=== PATIENT | female | born 1975 | race Caucasian/White ===

== ENCOUNTER → 2016-08-01 | Outpatient (CLI) | payer OTHER ==
--- NOTE | 2016-08-01 07:49 | US ---
EXAMINATION TYPE: US abdomen complete DATE OF EXAM: 08/01/2016 7:32 AM COMPARISON: NONE CLINICAL HISTORY: RUQ Pain R10.11. epigastric pain EXAM MEASUREMENTS: Liver Length: 11.1 cm Gallbladder Wall: 0.2 cm CBD: 0.2 cm Spleen: 11.1 cm Right Kidney: 11.3 x 4.6 x 6.9 cm Left Kidney: 10.9 x 4.0 x 4.3 cm TECHNOLOGIST IMPRESSION: very large body habitus , overlying bowel gas, Pancreas: very large body habitus , overlying bowel gas, portions seen wnl Liver: fatty liver, enlarged Gallbladder: wnl Evidence for sonographic Ware's sign: no CBD: wnl Spleen: wnl Right Kidney: No hydronephrosis or masses seen Left Kidney: No hydronephrosis or masses seen Upper IVC: very large body habitus , overlying bowel gas, portions seen wnl Abd Aorta: very large body habitus , overlying bowel gas, portions seen wnl IMPRESSION: 1. Limitation due to patient body habitus. 2. No acute changes evident. 3. Mild fatty infiltration liver
== END | disposition home or self-care (01) ==
LOC: RADUSWWP 07:06
PROVIDERS: ATTEND Internal Medicine
DX: K76.0 Fatty (change of) liver, not elsewhere classified (principal)
CPT/HCPCS: 76700

== ENCOUNTER → 2016-08-02 | Outpatient (CLI) | payer OTHER ==
[2016-08-02 12:52] LABS: Anisocytosis Slight; CHCM 33.3; HCT 39.3 % (34.0-46.0); HGB 12.7 gm/dL (11.4-16.0); Hypochromasia Slight; MCH 27.4 pg (25.0-35.0); MCHC 32.4 g/dL (31.0-37.0); MCV 84.4 fL (80.0-100.0); Mean Platelet Volume 6.1; Poikilocytosis Slight; RBC 4.65 m/uL (3.80-5.40); RDW 16.1 % (11.5-15.5); WBC 6.8 k/uL (3.8-10.6)
[2016-08-02 14:18] LABS: Hemoglobin A1C 5.1 % (4.2-6.1)
[2016-08-02 14:49] LABS: ALT 50 U/L (9-52); AST 28 U/L (14-36); Alkaline Phosphatase 54 U/L (38-126); Anion Gap 9 mmol/L; Blood Urea Nitrogen 11 mg/dL (7-17); C Reactive Protein 20.7 mg/L (<10.0); Calcium 8.8 mg/dL (8.4-10.2); Carbon Dioxide 26 mmol/L (22-30); Chloride 108 mmol/L (98-107); Creatine Kinase 95 U/L (30-135); Glucose 135 mg/dL (74-99); Magnesium 2.1 mg/dL (1.6-2.3); Non-African American GFR(MDRD) >60 (>60 ml/min/1.73 sqM); Potassium 4.2 mmol/L (3.5-5.1); Sodium 143 mmol/L (137-145); Total Bilirubin 0.5 mg/dL (0.2-1.3); Total Protein 6.9 g/dL (6.3-8.2)
[2016-08-02 15:35] LABS: Vitamin B12 628 pg/mL (239-931)
[2016-08-06 05:46] LABS: Vitamin E (Alpha Tocopherol) 1070 ug/dL (500-1800)
[2016-08-09 01:41] LABS: Vitamin K 745 pg/mL (80-1160)
== END | disposition home or self-care (01) ==
LOC: LABWHC1 12:21
PROVIDERS: ATTEND Psychiatry & Neurology Pain Medicine
DX: M79.7 Fibromyalgia (principal); G89.29 Other chronic pain
CPT/HCPCS: 36415; 80053; 82306; 82550; 82607; 83036; 83519; 83735; 84207; 84425; 84446; 84590; 84591; 84597; 85027; 86140

== ENCOUNTER → 2016-12-12 | Outpatient (CLI) | payer OTHER ==
--- NOTE | 2016-12-12 11:29 | MM ---
Reason for exam: clinical finding. Last mammogram was performed 1 year ago. History: Family history of breast cancer in paternal cousin at age 21. Physical Findings: Nurse did not find any significant physical abnormalities on exam.. MG Diagnostic Mammo w CAD HERSON Bilateral CC and MLO view(s) were taken. CV view(s) were taken of the right breast. Prior study comparison: December 05, 2015, bilateral MG diagnostic mammo w CAD HERSON. September 28, 2013, CAD bilateral diagnostic mammogram. The breast tissue is almost entirely fat. There is no discrete abnormality. No abnormal density at right breast. No significant new findings when compared with previous films. These results were verbally communicated with the patient and result sheet given to the patient on 12/12/16. ASSESSMENT: Benign, BI-RAD 2 RECOMMENDATION: Routine screening mammogram of both breasts in 1 year. Manage patient on a clinical basis.
== END | disposition home or self-care (01) ==
LOC: RADMAMWWP 10:21
PROVIDERS: ATTEND Internal Medicine
DX: N60.09 Solitary cyst of unspecified breast (principal)

== ENCOUNTER → 2017-02-22 | Outpatient (CLI) | payer OTHER ==
[2017-02-23 07:50] LABS: Hemoglobin A1C 5.6 % (4.2-6.1)
== END ==
LOC: LABWHC1 10:30
PROVIDERS: ATTEND Psychiatry & Neurology Pain Medicine
DX: M79.7 Fibromyalgia (principal); R20.2 Paresthesia of skin
CPT/HCPCS: 36415; 82306; 83036; 85652; 86038; 86431

== ENCOUNTER → 2017-02-27 | Outpatient (CLI) | payer OTHER ==
--- NOTE | 2017-02-27 22:26 | MR ---
EXAMINATION TYPE: MR lumbar spine wo con DATE OF EXAM: 02/27/2017 COMPARISON: Lumbar spine x-ray June 07, 2016 HISTORY: Prickling in low back and legs per patient for 2 months. Lumbago, neuropathy, lower extremit y paresthesias, and bilateral radiculopathy per order. TECHNIQUE: Multiplanar, multisequence imaging of the lumbar spine is performed without IV contrast. FINDINGS: Sagittal images of the lumbar spine show vertebral body heights and alignment to appear sat isfactory. The intervertebral discs demonstrate normal heights and hydration. No significant posteri or disc herniations are present on sagittal images. The conus medullaris is normal in position and si gnal ending at mid L1 level. The bone marrow signal intensity is within normal limits. No significan t spurring is seen. Axial images show mild facet degenerative changes bilaterally at L4-L5 and L5-S1 levels. Spinal canal is preserved. Bilateral neural foramina are patent. No suspicious retroperitoneal findings are seen. IMPRESSION: Mild facet degenerative changes lower lumbar spine. No significant finding is seen to acc ount for patient's radiculopathy type symptoms.
== END | disposition home or self-care (01) ==
LOC: RADMRIMAIN 21:31
PROVIDERS: ATTEND Psychiatry & Neurology Pain Medicine
DX: M47.816 Spondylosis without myelopathy or radiculopathy, lumbar region (principal)
CPT/HCPCS: 72148

== ENCOUNTER → 2017-09-03 | Outpatient (CLI) | payer OTHER ==
--- NOTE | 2017-09-03 19:17 | MR ---
EXAMINATION TYPE: MR thoracic spine wo con DATE OF EXAM: 09/03/2017 COMPARISON: NONE HISTORY: Mid back pain Standard multiplanar, multisequence MRI departmental protocol Multiplanar, multisequence images of the thoracic spine were acquired. FINDINGS: At T2-T3 there is a central disc bulge. There is no canal stenosis. Neural foramina are patent. At T7-T8 there is minimal left paracentral disc bulging. Simple appearing right renal cyst noted. Remaining levels demonstrate no evidence of disc herniation or canal stenosis. No foraminal encroachm ent. No abnormal signal seen in the visualized spinal cord. Alignment is anatomic. Vertebral body height is maintained. At T10-T11 there is moderate degenerative disc disease. There are no compression deformities. IMPRESSION: Disc bulging at T2-T3 and T7-T8 with no canal stenosis or foraminal encroachment.
== END | disposition home or self-care (01) ==
LOC: RADMRIMAIN 15:44
PROVIDERS: ATTEND Psychiatry & Neurology Neurology
DX: M51.24 Other intervertebral disc displacement, thoracic region (principal)
CPT/HCPCS: 72146

== ENCOUNTER 2017-11-30 12:02 | Emergency (ER) | payer OTHER ==
[2017-11-30 12:14] VITALS: BP 130/83; PULSE 75; RESP 20; TEMP 98.2
--- NOTE | 2017-11-30 12:52 | ED ---
General Adult HPI - General Chief complaint: Abdominal Pain Stated complaint: BACK PAIN X 4 DAYS Time Seen by Provider: 11/30/17 12:29 Source: patient, RN notes reviewed Mode of arrival: ambulatory Limitations: no limitations - History of Present Illness Initial comments: Patient's a 42-year-old female presented to the emergency room today with a chief complaint of right shoulder pain. Patient denies any specific injury or trauma. She doesn't that the pain is somewhat constant she can feeling behind the shoulder blade. She states with movement she feels that it radiates into the spine sheet down. Patient admits that pain is worse with movement. Patient states unsure if she slept wrong or how she injured it. Patient denies any recent fever, chills, shortness of breath, chest pain, abdominal pain, nausea or vomiting, dysuria or hematuria, constipation or diarrhea, headaches or visual changes, or any other complaints. - Related Data Home Medications Medication Instructions Recorded Confirmed Hydrocodone/Acetaminophen 1 tab PO DIRECTED 08/31/14 11/30/17 [Hydrocodon-Acetaminoph 7.5-325] Previous Rx's Medication Instructions Recorded Cyclobenzaprine [Flexeril] 10 mg PO TID #20 tab 11/30/17 Allergies Allergy/AdvReac Type Severity Reaction Status Date / Time NSAIDS (Non-Steroidal AdvReac Rash/Hives Verified 11/30/17 12:14 Anti-Inflamma Review of Systems ROS Statement: Those systems with pertinent positive or pertinent negative responses have been documented in the HPI. ROS Other: All systems not noted in ROS Statement are negative. Past Medical History Past Medical History: Fibromyalgia, Osteoarthritis (OA), Pulmonary Embolus (PE) Additional Past Medical History / Comment(s): lower back pain, migraines History of Any Multi-Drug Resistant Organisms: None Reported Past Surgical History: Section, Orthopedic Surgery Additional Past Surgical History / Comment(s): knee scope Past Psychological History: No Psychological Hx Reported Smoking Status: Never smoker Past Alcohol Use History: None Reported Past Drug Use History: None Reported General Exam - General Exam Comments Initial Comments: General: The patient is awake and alert, in no distress, and does not appear acutely ill. Neck: The neck is supple, there is no tenderness or JVD. Cardiovascular: There is a regular rate and rhythm. No murmur, rub or gallop is appreciated. Respiratory: Lungs are clear to auscultation, respirations are non-labored, breath sounds are equal. No wheezes, stridor, rales, or rhonchi. Musculoskeletal: Normal appearance of the right shoulder. Does have tenderness over the anterior and posterior aspects no muscular areas of the right shoulder. Patient's pain reproduced with movements and on palpation. Sensations intact pulses 2+. Neurological: A&O x 3. CN II-XII intact, There are no obvious motor or sensory deficits. Coordination appears grossly intact. Speech is normal. Abdominal: Abdomen soft nontender. No rebound tenderness. No guarding, no CVA tenderness. Skin: Skin is warm and dry and no rashes or lesions are noted. Psychiatric: Normal mood and affect. Limitations: no limitations Course Vital Signs 11/30/17 12:12 Temperature 98.2 F Pulse Rate 75 Respiratory 20 Rate Blood Pressure 130/83 O2 Sat by Pulse 96 Oximetry Medical Decision Making - Medical Decision Making Patient's initial triage note discusses abdominal pain. Did ask specifically patient denies any abdominal pain. She states that she's shoulder pain that is worse with movement. Patient's pain reproducible on palpation and with movements of extension in both internal rotation. Patient will be given muscle relaxer patient describes spasm-like pain. Also advised continued anti- inflammatories which she states she's been using ibuprofen at home. Disposition Clinical Impression: Right shoulder strain Disposition: HOME SELF-CARE Condition: Good Instructions: Shoulder Sprain (ED) Additional Instructions: Please use medication as discussed. Please follow-up with family doctor in the next 2 days of symptoms have not improved. Please return to emergency room if the symptoms increase or worsen or for any other concerns. Prescriptions: Cyclobenzaprine [Flexeril] 10 mg PO TID #20 tab Is patient prescribed a controlled substance at d/c from ED?: No Referrals: Lillian Vazquez MD [REFERRING] - 1-2 days Time of Disposition: 12:42
== END 2017-11-30 13:00 | disposition home or self-care (01) ==
LOC: EC 12:02
DX: S46.911A Strain of unspecified muscle, fascia and tendon at shoulder and upper arm level, right arm, initial encounter (principal); M79.7 Fibromyalgia; M19.90 Unspecified osteoarthritis, unspecified site; Z86.711 Personal history of pulmonary embolism; Z98.890 Other specified postprocedural states; Z79.891 Long term (current) use of opiate analgesic; Z79.899 Other long term (current) drug therapy; Z88.6 Allergy status to analgesic agent; X58.XXXA Exposure to other specified factors, initial encounter
CPT/HCPCS: 99283

== ENCOUNTER → 2018-07-29 | Outpatient (CLI) | payer OTHER ==
[2018-07-29 15:04] VITALS: BP 130/78; PULSE 77; TEMP 98.9; BMI 47.4
--- NOTE | 2018-07-29 16:42 | P.HPBAR ---
Bariatric H&P - History & Physicial H&P Date: 07/29/18 History & Physicial: Visit/CC: bariatric sx consult Patient initial contact: Initial weight: 121.381 kg Initial weight in pounds: 267.60 Height: 5 ft 3 in Initial BMI: 47.4 Last weight: Current weight: 121.381 kg Current weight in pounds: 267.60 Current BMI: 47.4 [place] body weight (based on NIH guidelines): 52.163 kg Excess body weight loss: 0.0% The patient is a 43 year-old F who presents for Bariatric Assessment. Medications and Allergies Home Medications Medication Instructions Recorded Confirmed Type Hydrocodone/Acetaminophen 1 tab PO DIRECTED 08/31/14 07/29/18 History [Hydrocodon-Acetaminoph 7.5-325] Phentermine HCl [Adipex-P] 37.5 mg PO DAILY 07/29/18 07/29/18 History Topiramate [Topamax] 25 mg PO DAILY 07/29/18 07/29/18 History Allergies Allergy/AdvReac Type Severity Reaction Status Date / Time NSAIDS (Non-Steroidal AdvReac Rash/Hives Verified 07/29/18 15:05 Anti-Inflamma HPI: Looking into the sleeve gastrectomy. She has family and friends who had the sleeve. She denies any GERD. No family history of esophageal or stomach cancer. No blood clots in the family. Highest weight of 293 pounds. Tried weight watchers, amilcar tena, topamax and adipex for weight loss. Her most weight loss is 18 pounds. She reports no family history of obesity. She has her gallbladder and without problems. No family history of gallbladder problems. Osteoarthritis of back, knees, and plantar fasciitis. She had an appendectomy. She had a sleep study. She is not on any medications for her blood pressure. She has history of DVTs during . She has panniculitis. ABDOMEN: She has severe panniculitis. PLAN: 1. Nystatin powder for panniculitis. 2. Labs today 3. Get your sleeve done 4. Guidelines per [place] Past Medical History Past Medical History: Fibromyalgia, Osteoarthritis (OA), Pulmonary Embolus (PE) Additional Past Medical History / Comment(s): lower back pain, migraines, Right lung PE (following and delivery), OA in bilateral hips and knees) History of Any Multi-Drug Resistant Organisms: None Reported Past Surgical History: Section, Orthopedic Surgery Additional Past Surgical History / Comment(s): x1, arthroscopic knee sx (3x to RIGHT knee, 2x to LEFT) Past Anesthesia/Blood Transfusion Reactions: No Reported Reaction Additional Past Anesthesia/Blood Transfusion Reaction / Comm: No blood transfusion to date Past Psychological History: No Psychological Hx Reported Smoking Status: Never smoker Past Alcohol Use History: None Reported Past Drug Use History: None Reported Surgical - Exam Vital Signs Temp Pulse BP 98.9 F 77 130/78 07/29/18 14:36 07/29/18 14:36 07/29/18 14:36 Bariatric Checklist Checklist: Plan: Checklist: EGD: 1. Hiatal hernia: 2. H. Pylori: HgbA1c: Vitamin D: Smoking: Never smoker Primary care physician referral: minnie Psychiatry clearance: Cardiology clearance: Sleep study: Diet journal: VTE risk score: VTE risk level: Rehab needs at discharge:
== END | disposition home or self-care (01) ==
LOC: BARWHC3 13:43
PROVIDERS: ATTEND Surgery Plastic and Reconstructive Surgery
DX: E66.01 Morbid (severe) obesity due to excess calories (principal); M79.3 Panniculitis, unspecified; Z68.42 Body mass index [BMI] 45.0-49.9, adult; Z90.49 Acquired absence of other specified parts of digestive tract; Z79.899 Other long term (current) drug therapy; Z88.6 Allergy status to analgesic agent
CPT/HCPCS: 99211

== ENCOUNTER → 2018-07-30 | Outpatient (CLI) | payer OTHER ==
[2018-07-30 10:45] LABS: Anisocytosis Slight; HCT 44.7 % (34.0-46.0); HGB 14.1 gm/dL (11.4-16.0); Hypochromasia Slight; MCH 26.1 pg (25.0-35.0); MCHC 31.6 g/dL (31.0-37.0); MCV 82.4 fL (80.0-100.0); Mean Platelet Volume 6.2; Platelet Count 386 k/uL (150-450); RBC 5.43 m/uL (3.80-5.40); RDW 17.3 % (11.5-15.5); WBC 8.2 k/uL (3.8-10.6)
[2018-07-30 16:21] LABS: Albumin 4.7 g/dL (3.80-4.90); Albumin/Globulin Ratio 1.81 (1.60-3.17); Anion Gap 9.1 mmol/L (4.00-12.00); Calcium 9.8 mg/dL (8.7-10.3); Carbon Dioxide 26.9 mmol/L (21.6-31.8); Globulin 2.6 g/dL (1.6-3.3); LDL Cholesterol,Calculated 90.2 mg/dL (0.0-131.0); Potassium 4.6 mmol/L (3.5-5.5); Total Bilirubin 0.4 mg/dL (0.3-1.2); Total Protein 7.3 g/dL (6.2-8.2); VLDL Calculation 40.8 mg/dL (5.00-40.00)
[2018-07-30 16:22] LABS: Iron Saturation 16.9 (12.00-45.00)
[2018-07-30 17:11] LABS: Folate, Serum 9.9 ng/mL; Vitamin D 25 Hydroxy 14.3 ng/mL (30.0-100.0)
== END | disposition home or self-care (01) ==
LOC: LABWHC1 09:47
PROVIDERS: ATTEND Surgery Plastic and Reconstructive Surgery
DX: E66.01 Morbid (severe) obesity due to excess calories (principal); E88.81 Metabolic syndrome and other insulin resistance; E44.0 Moderate protein-calorie malnutrition; E55.9 Vitamin D deficiency, unspecified; I11.9 Hypertensive heart disease without heart failure; G47.30 Sleep apnea, unspecified; Z68.43 Body mass index [BMI] 50.0-59.9, adult
CPT/HCPCS: 36415; 80053; 80061; 82306; 82607; 82728; 82746; 83540; 83550; 84425; 84443; 85027; 93005

== ENCOUNTER → 2018-09-08 | Outpatient (CLI) | payer OTHER ==
[2018-09-08 16:05] VITALS: BP 129/79; PULSE 92; RESP 16; TEMP 97.4; BMI 48.2
--- NOTE | 2018-09-08 17:08 | P.HPOB ---
History of Present Illness H&P Date: 09/08/18 Chief Complaint: The patient is here for her routine gynecologic exam. This is a 43 year old with an LMP of April 2018. The patient states her menses were regular every month until 5 months ago when they suddenly stopped. She has been experiencing hot flashes since about that time. She is status post tubal ligation. She also has been experiencing problems with hemorrhoids for the past 3 months. She has known about a hemorrhoid for a long time, but it started feeling inflamed and seems to always be in the way with her bowel movements. She has tried preparation H, tucks wipes and some types of suppositories. These have not helped very much. She states that it hurts to wipe, stand, sit and to have bowel movements. She has felt a tearing type sensation with some bowel movements and this can lead to blood when she wipes. She states she moves her bowels fairly regularly at least once a day and they tend to be on the softer side. She tried suppositories about one month ago. Review of Systems Her weight is about the same as it was 2 1/2 years ago. She denies respiratory cardiac problems. G.I.: symptomatic hemorrhoids as in the HPI. She otherwise denies any G.I. problems. Past Medical History Past Medical History: Deep Vein Thrombosis (DVT), Fibromyalgia, Hypertension, Osteoarthritis (OA), Pulmonary Embolus (PE) Additional Past Medical History / Comment(s): Chronic back problems with herniated disc, migraines, DVT and Right lung PE (following and c- section delivery), OA in bilateral hips and knees. 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 History of Any Multi-Drug Resistant Organisms: None Reported Past Surgical History: Appendectomy, Section, Orthopedic Surgery, Tubal Ligation Additional Past Surgical History / Comment(s): x1, arthroscopic knee sx (3x to RIGHT knee, 2x to LEFT) Past Anesthesia/Blood Transfusion Reactions: No Reported Reaction Additional Past Anesthesia/Blood Transfusion Reaction / Comment(s): No blood transfusion to date Past Psychological History: No Psychological Hx Reported Smoking Status: Former smoker Past Alcohol Use History: None Reported Past Drug Use History: Marijuana (Medical marijuana) Additional History: Quit smoking 2000. She has been since 2016 and has been with him since 2004. She is disabled. - Past Family History Father Family Medical History: Diabetes Mellitus, Myocardial Infarction (HI) Additional Family Medical History / Comment(s): Grandmother and grandfather had diabetes. Grandfather had prostate cancer. Medications and Allergies Home Medications Medication Instructions Recorded Confirmed Type Hydrocodone/Acetaminophen 1 tab PO DIRECTED 08/31/14 09/08/18 History [Hydrocodon-Acetaminoph 7.5-325] Phentermine HCl [Adipex-P] 37.5 mg PO DAILY 07/29/18 09/08/18 History Topiramate [Topamax] 25 mg PO DAILY 07/29/18 09/08/18 History Ergocalciferol (Vitamin D2) 50,000 unit PO WEEKLY 08/06/18 09/08/18 History [Vitamin D2] Allergies Allergy/AdvReac Type Severity Reaction Status Date / Time NSAIDS (Non-Steroidal AdvReac Rash/Hives Verified 09/08/18 16:01 Anti-Inflamma Exam Vital Signs Temp Pulse Resp BP Pulse Ox 09/08/18 16:02 97.4 F L 92 16 129/79 98 Intake and Output 09/08/18 09/08/18 09/08/18 06:59 14:59 22:59 Other: Weight 119.748 kg Height 5'2", weight 264 pounds, BMI 48.3. This is a well-developed well-nourished obese white female who is alert and oriented times 3 in no acute distress. HEENT: Within normal limits. NECK: Supple without mass or thyromegaly. CHEST AND LUNGS: Clear to auscultation. HEART: Regular rate and rhythm. BREASTS: Are without mass or discharge. AXILLARY EXAM: Negative for adenopathy. BACK: Negative for CVA tenderness. ABDOMEN: Soft, obese, nontender, without palpable masses. PELVIC EXAM: Normal external genitalia. Cervix and vagina appear normal. There is no unusual discharge. There is no evidence of prolapse. The uterus is midposition, nongravid size and nontender. There are no palpable adnexal masses or tenderness. Bimanual examination is somewhat limited secondary to her size. RECTAL EXAM: there is a 1 cm external hemorrhoid had approximately the 8 o'clock position. This is soft and minimally tender. This external hemorrhoid seems to extend into an internal hemorrhoid which is soft and mildly tender the internal hemorrhoid does not seem to be actively bleeding. There are no other palpable masses. Stool is negative for occult blood. EXTREMITIES: Nontender. IMPRESSION: 1. 43 year old obese female with five-month history of secondary amenorrhea with vasomotor symptoms, probable perimenopause. 2. Symptomatic internal and external hemorrhoid. PLAN: 1. Pap smear was performed. 2. Self breast awareness was discussed with the patient. 3. Screening mammogram was recommended and an order slip was given to the patient for this. 4. Blood tests will be done today and this will include: FSH, estradiol, and hCG. The patient had a normal TSH approximately one month ago. 5. The patient will keep the menstrual calendar and call it having menstrual problems. 6. Anusol HC suppositories and cream can each be used BID PRN. The electronic prescription will be sent to [facility] pharmacy on . I have also stressed the importance of keeping stools soft and regular. If she continues to have problems with her hemorrhoids, I recommended that she speak with her surgeon, Dr. Celis. 7.Osteoporosis prevention was discussed. I have stressed the importance of adequate calcium, vitamin D and regular exercise. Recommended amounts of calcium and vitamin D were also discussed. 8. She will return in one year and PRN.
== END ==
LOC: WWCWWP 15:50
PROVIDERS: ATTEND Obstetrics & Gynecology
DX: N91.1 Secondary amenorrhea (principal)
CPT/HCPCS: 36415; 82670; 83001; 84702

== ENCOUNTER → 2018-09-14 | Day surgery (SDC) | payer OTHER ==
[2018-09-10 10:32] VITALS: BMI 47.5
[~2018-09-14] MED LIST: LACTATED RINGERS 1,000 ML IV SCH; LIDOCAINE 1% INJ 10MG/ML (20 ML MDV) ONE; PROPOFOL 10 MG/ML 20 ML VIAL IV ONE
--- NOTE | 2018-09-14 06:27 | P.GSHP ---
History of Present Illness H&P Date: 09/14/18 CHIEF COMPLAINT: GERD HISTORY OF PRESENT ILLNESS: The patient is a 43-year-old female who presents reports gastroesophageal reflux disease. Upper endoscopy was offered for further evaluation and management. PAST MEDICAL HISTORY: Please see list. PAST SURGICAL HISTORY: Please see list. MEDICATIONS: Please see list. ALLERGIES: Please see list. SOCIAL HISTORY: No illicit drug use FAMILY HISTORY: No reports of Crohn disease or ulcerative colitis. REVIEW OF ORGAN SYSTEMS: CONSTITUTIONAL: No reports of fevers or chills. GI: Denies any blood in stools or constipation. PHYSICAL EXAM: VITAL SIGNS: Stable GENERAL: Well-developed and pleasant in no acute distress. HEENT: No scleral icterus. Extraocular movements grossly intact. Moist buccal mucosa. NECK: Supple without lymphadenopathy. CHEST: Unlabored respirations. Equal bilateral excursions. CARDIOVASCULAR: Regular rate and rhythm. Distal 2+ pulses. ABDOMEN: Soft, nondistended. MUSCULOSKELETAL: No clubbing, cyanosis, or edema. ASSESSMENT: 1. Gastroesophageal reflux disease PLAN: 1. Recommend proceeding with an upper endoscopy Past Medical History Past Medical History: Fibromyalgia, Osteoarthritis (OA), Pulmonary Embolus (PE) Additional Past Medical History / Comment(s): lower back pain, migraines, Right lung PE (while ), OA in bilateral hips and knees History of Any Multi-Drug Resistant Organisms: None Reported Past Surgical History: Appendectomy, Section, Orthopedic Surgery Additional Past Surgical History / Comment(s): x1, arthroscopic knee sx (3x to RIGHT knee, 2x to LEFT) Past Anesthesia/Blood Transfusion Reactions: No Reported Reaction Additional Past Anesthesia/Blood Transfusion Reaction / Comment(s): No blood transfusion to date Past Psychological History: No Psychological Hx Reported Smoking Status: Never smoker Past Alcohol Use History: None Reported Past Drug Use History: None Reported - Past Family History Mother Family Medical History: No Reported History Medications and Allergies Home Medications Medication Instructions Recorded Confirmed Type Hydrocodone/Acetaminophen 1 tab PO BID PRN 08/31/14 09/10/18 History [Hydrocodon-Acetaminoph 7.5-325] Phentermine HCl [Adipex-P] 37.5 mg PO DAILY 07/29/18 09/10/18 History Topiramate [Topamax] 25 mg PO DAILY 07/29/18 09/10/18 History Ergocalciferol (Vitamin D2) 50,000 unit PO WEEKLY 08/06/18 09/10/18 History [Vitamin D2] Allergies Allergy/AdvReac Type Severity Reaction Status Date / Time NSAIDS (Non-Steroidal AdvReac Rash/Hives Verified 09/10/18 10:18 Anti-Inflamma
[2018-09-14 07:22] VITALS: TEMP 96.8
--- NOTE | 2018-09-14 07:46 | P.PCN ---
Date of Procedure: 09/14/18 Description of Procedure: PREOPERATIVE DIAGNOSIS: Gastroesophageal reflux disease. Morbid obesity. POSTOPERATIVE DIAGNOSIS: Gastroesophageal reflux disease. Morbid obesity. Gastritis. Retained food OPERATION: Esophagogastroduodenoscopy with biopsies along antrum. SURGEON: Kareen Delacruz MD ANESTHESIA: MAC. INDICATIONS: The patient is a 43-year-old female who presents with a history of reflux disease. Benefits and risks of the procedure were described. Informed consent was obtained. DESCRIPTION: The patient was brought into the endoscopy suite and laid in the left lateral decubitus position. An Olympus gastroscope was passed along the posterior oropharynx down to the distal esophagus where the squamocolumnar junction was encountered at 36 cm from the incisors. The stomach was entered and no bile reflux was found. Additional findings are listed below. Biopsies with cold forceps were obtained of the antrum. The first through third portion of the duodenum was examined and unremarkable. Retroflexion of the scope confirmed Hill grade 2 lower esophageal valve. The squamocolumnar junction demonstrated LA grade A erosive esophagitis. The stomach was desufflated. The patient tolerated the procedure well. FINDINGS: Squamocolumnar junction 36 cm from the incisors. Diaphragmatic hiatus at 36 cm. Hill grade 2 lower esophageal valve. LA grade A erosive esophagitis. No active duodenitis. Moderate retained food within fundus suspicious of acute or delayed gastric emptying Hypertensive pylorus requiring us persistent pressure to advance scope into the duodenum Chronic gastritis RECOMMENDATIONS: Upper endoscopy as needed. Plan - Discharge Summary New Discharge Prescriptions: No Action Hydrocodone/Acetaminophen [Hydrocodon-Acetaminoph 7.5-325] 1 tab PO BID PRN PRN Reason: Pain Topiramate [Topamax] 25 mg PO DAILY Phentermine HCl [Adipex-P] 37.5 mg PO DAILY Ergocalciferol (Vitamin D2) [Vitamin D2] 50,000 unit PO WEEKLY Discharge Medication List Hydrocodone/Acetaminophen [Hydrocodon-Acetaminoph 7.5-325] 1 tab PO BID PRN 08/31/14 [History] Phentermine HCl [Adipex-P] 37.5 mg PO DAILY 07/29/18 [History] Topiramate [Topamax] 25 mg PO DAILY 07/29/18 [History] Ergocalciferol (Vitamin D2) [Vitamin D2] 50,000 unit PO WEEKLY 08/06/18 [History] Follow up Appointment(s)/Referral(s): [facility] [NON-STAFF] - 10/14/18 Patient Instructions/Handouts: Gastroparesis (DC), Gastroesophageal Reflux Disease (DC) Discharge Disposition: HOME SELF-CARE
[2018-09-14 09:45] VITALS: BP 122/76; PULSE 66; RESP 18
== END | disposition home or self-care (01) ==
LOC: ORWHC2ENDO 06:57
PROVIDERS: ATTEND Surgery Plastic and Reconstructive Surgery
DX: K21.0 Gastro-esophageal reflux disease with esophagitis (principal); K29.50 Unspecified chronic gastritis without bleeding; K31.89 Other diseases of stomach and duodenum; T18.2XXA Foreign body in stomach, initial encounter; E66.01 Morbid (severe) obesity due to excess calories; Z68.42 Body mass index [BMI] 45.0-49.9, adult; M79.7 Fibromyalgia; M15.9 Polyosteoarthritis, unspecified; G43.909 Migraine, unspecified, not intractable, without status migrainosus; Z86.711 Personal history of pulmonary embolism; Z90.49 Acquired absence of other specified parts of digestive tract; Z79.899 Other long term (current) drug therapy; Z88.8 Allergy status to other drugs, medicaments and biological substances
CPT/HCPCS: 88305; 43239; J2001; J2704

== ENCOUNTER → 2018-09-21 | Outpatient (CLI) | payer OTHER ==
[2018-09-21 12:01] VITALS: BMI 47.1
== END ==
LOC: BARWHC3 08:36
PROVIDERS: ATTEND Surgery Plastic and Reconstructive Surgery
DX: E66.01 Morbid (severe) obesity due to excess calories (principal); Z68.42 Body mass index [BMI] 45.0-49.9, adult
CPT/HCPCS: 97804

== ENCOUNTER 2018-09-22 18:27 | Emergency (ER) | payer OTHER ==
[2018-09-22 18:33] VITALS: RESP 18
[2018-09-22] MEDS ORDERED: ONDANSETRON 4 MG/2 ML VIAL IVP STA (19:13)
[2018-09-22] MEDS ORDERED: SODIUM CHLORIDE 0.9% 1,000 ML IV STA (19:13)
[2018-09-22] MEDS ORDERED: MORPHINE SULFATE 4 MG/ML SYRINGE IVP STA (19:13)
[2018-09-22 19:50] LABS: Anisocytosis Slight; Basophils % (A) 0 %; Eosinophils # (A) 0.1 k/uL (0-0.7); Eosinophils % (A) 1 %; HCT 38.4 % (34.0-46.0); HGB 12.9 gm/dL (11.4-16.0); Lymphocytes % (A) 32 %; MCH 26.4 pg (25.0-35.0); MCHC 33.5 g/dL (31.0-37.0); MCV 78.9 fL (80.0-100.0); Microcytosis Slight; Monocytes # (A) 0.4 k/uL (0-1.0); Monocytes % (A) 4 %; Neutrophils # (A) 5.8 k/uL (1.3-7.7); Neutrophils % (A) 62 %; Platelet Count 329 k/uL (150-450); RBC 4.87 m/uL (3.80-5.40); RDW 16.8 % (11.5-15.5); WBC 9.5 k/uL (3.8-10.6)
[2018-09-22 19:54] LABS: Amorphous Sediment,Urine Occasional /hpf; Appearance,Urine Cloudy (Clear); Bacteria,Urine Occasional /hpf; Bilirubin,Urine Negative (Negative); Blood,Urine Trace (Negative); Color,Urine Yellow; Glucose,Urine (UA) Negative (Negative); Hyaline Casts,Urine 7 /lpf (0-2); Ketones,Urine Negative (Negative); Leukocyte Esterase,Urine Negative (Negative); Mucus,Urine Many /hpf; Nitrite,Urine Negative (Negative); PH, Urine 5.5 (5.0-8.0); Protein,Urine 1+ (Negative); RBC,Urine 2 /hpf (0-5); Specific Gravity,Urine 1.031 (1.001-1.035); Squamous Epithelial Cell,Urine 11 /hpf (0-4); Urobilinogen,Urine <2.0 mg/dL (<2.0); WBC,Urine 13 /hpf (0-5)
[2018-09-22 20:02] LABS: ALT 22 U/L (9-52); AST 19 U/L (14-36); Alkaline Phosphatase 66 U/L (38-126); Amylase <30 U/L (30-110); Anion Gap 8 mmol/L; Blood Urea Nitrogen 14 mg/dL (7-17); Calcium 9.4 mg/dL (8.4-10.2); Carbon Dioxide 27 mmol/L (22-30); Chloride 106 mmol/L (98-107); Glucose 118 mg/dL (74-99); Lipase 90 U/L (23-300); Potassium 4.1 mmol/L (3.5-5.1); Sodium 141 mmol/L (137-145); Total Bilirubin 0.5 mg/dL (0.2-1.3); Total Protein 7.1 g/dL (6.3-8.2)
--- NOTE | 2018-09-22 21:04 | CT ---
EXAMINATION TYPE: CT abdomen pelvis wo con DATE OF EXAM: 09/22/2018 COMPARISON: None HISTORY: left flank pain CT DLP: 1250 mGycm Automated exposure control for dose reduction was used. TECHNIQUE: Helical acquisition of images was performed from the lung bases through the pelvis. FINDINGS: Within the limitations of noncontrast CT the following observations are made: LUNG BASES: No significant abnormality is appreciated. LIVER/GB: No significant abnormality is appreciated. PANCREAS: No significant abnormality is seen. SPLEEN: No significant abnormality is seen. ADRENALS: No significant abnormality is seen. KIDNEYS: No hydronephrosis or hydroureter. No acute renal process. However, congenital variant left r enal anatomy is noted, with upper and lower left renal moieties. FREE AIR: No free air is visualized RETROPERITONEAL ADENOPATHY: None visualized REPRODUCTIVE ORGANS: No significant abnormality is seen URINARY BLADDER: No significant abnormality is seen. PELVIC ADENOPATHY: None visualized. OSSEOUS STRUCTURES: No significant abnormality is seen. BOWEL: No significant abnormality is seen. No diverticulitis. IMPRESSION: NO ACUTE PROCESS.
--- NOTE | 2018-09-22 21:47 | ED ---
General Adult HPI - General Chief complaint: Back Pain/Injury Stated complaint: flank pain Time Seen by Provider: 09/22/18 18:48 Source: patient, RN notes reviewed Mode of arrival: ambulatory Limitations: no limitations - History of Present Illness Initial comments: 43-year-old female with a past medical history of fibromyalgia, hypertension, osteoarthritis, chronic back pain, herniated disks presents to the emergency department for a chief complaint of left-sided flank pain rating around to the left upper abdomen. States this has been ongoing for 4 days. Denies any dysuria or urinary frequency or or urgency. Patient also states that today she started to have some right-sided flank pain. Patient states that when the pain is severe and sometimes takes her breath away. She denies any other shortness of breath or chest pain.Patient has no other complaints at this time including shortness of breath, chest pain, abdominal pain, nausea or vomiting, headache, or visual changes. - Related Data Home Medications Medication Instructions Recorded Confirmed Hydrocodone/Acetaminophen 1 tab PO BID PRN 08/31/14 09/22/18 [Hydrocodon-Acetaminoph 7.5-325] Phentermine HCl [Adipex-P] 37.5 mg PO DAILY 07/29/18 09/22/18 Topiramate [Topamax] 25 mg PO DAILY 07/29/18 09/22/18 Ergocalciferol (Vitamin D2) 50,000 unit PO FR 08/06/18 09/22/18 [Vitamin D2] Allergies Allergy/AdvReac Type Severity Reaction Status Date / Time NSAIDS (Non-Steroidal AdvReac Rash/Hives Verified 09/22/18 19:04 Anti-Inflamma Review of Systems ROS Statement: Those systems with pertinent positive or pertinent negative responses have been documented in the HPI. ROS Other: All systems not noted in ROS Statement are negative. Past Medical History Past Medical History: Deep Vein Thrombosis (DVT), Fibromyalgia, Hypertension, Osteoarthritis (OA), Pulmonary Embolus (PE) Additional Past Medical History / Comment(s): Chronic back problems with herniated disc, migraines History of Any Multi-Drug Resistant Organisms: None Reported Past Surgical History: Appendectomy, Section, Orthopedic Surgery, Tubal Ligation Additional Past Surgical History / Comment(s): x1, arthroscopic knee sx (3x to RIGHT knee, 2x to LEFT) Past Anesthesia/Blood Transfusion Reactions: No Reported Reaction Additional Past Anesthesia/Blood Transfusion Reaction / Comment(s): No blood transfusion to date Past Psychological History: No Psychological Hx Reported Smoking Status: Former smoker Past Alcohol Use History: None Reported Past Drug Use History: None Reported - Past Family History Father Family Medical History: Diabetes Mellitus, Myocardial Infarction ([place]) Additional Family Medical History / Comment(s): Grandmother and grandfather had diabetes. Grandfather had prostate cancer. Mother Family Medical History: No Reported History General Exam Limitations: no limitations General appearance: alert, in no apparent distress Head exam: Present: atraumatic, normocephalic, normal inspection Eye exam: Present: normal appearance, PERRL, EOMI. Absent: scleral icterus, conjunctival injection, periorbital swelling ENT exam: Present: normal exam, mucous membranes moist Neck exam: Present: normal inspection, full ROM. Absent: tenderness, meningismus, lymphadenopathy Respiratory exam: Present: normal lung sounds bilaterally. Absent: respiratory distress, wheezes, rales, rhonchi, stridor Cardiovascular Exam: Present: regular rate, normal rhythm, normal heart sounds. Absent: systolic murmur, diastolic murmur, rubs, gallop, clicks GI/Abdominal exam: Present: soft, normal bowel sounds. Absent: distended, tenderness, guarding, rebound, rigid Back exam: Present: CVA tenderness (L). Absent: CVA tenderness (R), vertebral tenderness Neurological exam: Present: alert, oriented X3, CN II-XII intact Psychiatric exam: Present: normal affect, normal mood Course Vital Signs 09/22/18 18:30 Temperature 98.0 F Pulse Rate 75 Respiratory 18 Rate Blood Pressure 125/86 O2 Sat by Pulse 97 Oximetry Medical Decision Making - Medical Decision Making 43-year-old female presents to the emergency department for left flank pain 4 days. Patient does have left CVA tenderness. Otherwise exam is unremarkable. Patient is well-appearing, does not appear in distress. Vitals are stable. Tooth CBC and CMP are unremarkable. Urine has 11 squamous cells With 13 white blood cells so will be cultured. However low likelihood of urinary tract infection. CT shows no acute process. At this time it is likely the patient may have passed a stone. It is also likely that patient has a musculoskeletal etiology she does have tenderness noted to the left paraspinal muscles. Patient will follow up with primary care. She'll return here if she has any worsening symptoms. - Lab Data Result diagrams: 09/22/18 19:37 09/22/18 19:37 Lab Results 09/22/18 09/22/18 09/22/18 Range/Units 19:37 19:37 19:37 WBC 9.5 (3.8-10.6) k/uL RBC 4.87 (3.80-5.40) m/uL Hgb 12.9 (11.4-16.0) gm/dL Hct 38.4 (34.0-46.0) % MCV 78.9 L (80.0-100.0) fL MCH 26.4 (25.0-35.0) pg MCHC 33.5 (31.0-37.0) g/dL RDW 16.8 H (11.5-15.5) % Plt Count 329 (150-450) k/uL Neutrophils % 62 % Lymphocytes % 32 % Monocytes % 4 % Eosinophils % 1 % Basophils % 0 % Neutrophils # 5.8 (1.3-7.7) k/uL Lymphocytes # 3.0 (1.0-4.8) k/uL Monocytes # 0.4 (0-1.0) k/uL Eosinophils # 0.1 (0-0.7) k/uL Basophils # 0.0 (0-0.2) k/uL Anisocytosis Slight Microcytosis Slight Sodium 141 (137-145) mmol/L Potassium 4.1 (3.5-5.1) mmol/L Chloride 106 (98-107) mmol/L Carbon Dioxide 27 (22-30) mmol/L Anion Gap 8 mmol/L BUN 14 (7-17) mg/dL Creatinine 0.70 (0.52-1.04) mg/dL Est GFR (CKD-EPI)AfAm >90 (>60 ml/min/1.73 sqM) Est GFR (CKD-EPI)NonAf >90 (>60 ml/min/1.73 sqM) Glucose 118 H (74-99) mg/dL Plasma Lactic Acid Solomon 1.6 (0.7-2.0) mmol/L Calcium 9.4 (8.4-10.2) mg/dL Total Bilirubin 0.5 (0.2-1.3) mg/dL AST 19 (14-36) U/L ALT 22 (9-52) U/L Alkaline Phosphatase 66 (38-126) U/L Total Protein 7.1 (6.3-8.2) g/dL Albumin 4.0 (3.5-5.0) g/dL Amylase <30 L (30-110) U/L Lipase 90 (23-300) U/L Urine Color Urine Appearance (Clear) Urine pH (5.0-8.0) Ur Specific [place] (1.001-1.035) Urine Protein (Negative) Urine Glucose (UA) (Negative) Urine Ketones (Negative) Urine Blood (Negative) Urine Nitrite (Negative) Urine Bilirubin (Negative) Urine Urobilinogen (<2.0) mg/dL Ur Leukocyte Esterase (Negative) Urine RBC (0-5) /hpf Urine WBC (0-5) /hpf Ur Squamous Epith Cells (0-4) /hpf Amorphous Sediment (None) /hpf Urine Bacteria (None) /hpf Hyaline Casts (0-2) /lpf Urine Mucus (None) /hpf 09/22/18 Range/Units 19:37 WBC (3.8-10.6) k/uL RBC (3.80-5.40) m/uL Hgb (11.4-16.0) gm/dL Hct (34.0-46.0) % MCV (80.0-100.0) fL MCH (25.0-35.0) pg MCHC (31.0-37.0) g/dL RDW (11.5-15.5) % Plt Count (150-450) k/uL Neutrophils % % Lymphocytes % % Monocytes % % Eosinophils % % Basophils % % Neutrophils # (1.3-7.7) k/uL Lymphocytes # (1.0-4.8) k/uL Monocytes # (0-1.0) k/uL Eosinophils # (0-0.7) k/uL Basophils # (0-0.2) k/uL Anisocytosis Microcytosis Sodium (137-145) mmol/L Potassium (3.5-5.1) mmol/L Chloride (98-107) mmol/L Carbon Dioxide (22-30) mmol/L Anion Gap mmol/L BUN (7-17) mg/dL Creatinine (0.52-1.04) mg/dL Est GFR (CKD-EPI)AfAm (>60 ml/min/1.73 sqM) Est GFR (CKD-EPI)NonAf (>60 ml/min/1.73 sqM) Glucose (74-99) mg/dL Plasma Lactic Acid Solomon (0.7-2.0) mmol/L Calcium (8.4-10.2) mg/dL Total Bilirubin (0.2-1.3) mg/dL AST (14-36) U/L ALT (9-52) U/L Alkaline Phosphatase (38-126) U/L Total Protein (6.3-8.2) g/dL Albumin (3.5-5.0) g/dL Amylase (30-110) U/L Lipase (23-300) U/L Urine Color Yellow Urine Appearance Cloudy H (Clear) Urine pH 5.5 (5.0-8.0) Ur Specific [place] 1.031 (1.001-1.035) Urine Protein 1+ H (Negative) Urine Glucose (UA) Negative (Negative) Urine Ketones Negative (Negative) Urine Blood Trace H (Negative) Urine Nitrite Negative (Negative) Urine Bilirubin Negative (Negative) Urine Urobilinogen <2.0 (<2.0) mg/dL Ur Leukocyte Esterase Negative (Negative) Urine RBC 2 (0-5) /hpf Urine WBC 13 H (0-5) /hpf Ur Squamous Epith Cells 11 H (0-4) /hpf Amorphous Sediment Occasional H (None) /hpf Urine Bacteria Occasional H (None) /hpf Hyaline Casts 7 H (0-2) /lpf Urine Mucus Many H (None) /hpf Disposition Clinical Impression: Mechanical back pain Disposition: HOME SELF-CARE Condition: Good Instructions (If sedation given, give patient instructions): Flank Pain (ED) Additional Instructions: Please take Motrin and Tylenol for pain. Please follow-up with primary care in 1-2 days. Return here to the emergency department if you have any worsening symptoms. Is patient prescribed a controlled substance at d/c from ED?: No Referrals: Lillian Vazquez MD [Primary Care Provider] - 1-2 days Time of Disposition: 21:46
[2018-09-22 22:10] VITALS: BP 138/78; PULSE 82; TEMP 97.9
== END 2018-09-22 22:10 | disposition home or self-care (01) ==
LOC: EC 18:27
DX: M54.9 Dorsalgia, unspecified (principal); R10.9 Unspecified abdominal pain; I10 Essential (primary) hypertension; M19.90 Unspecified osteoarthritis, unspecified site; Z86.718 Personal history of other venous thrombosis and embolism; Z86.711 Personal history of pulmonary embolism; Z87.891 Personal history of nicotine dependence; Z79.899 Other long term (current) drug therapy; Z88.6 Allergy status to analgesic agent
CPT/HCPCS: 36415; 80053; 82150; 83605; 83690; 85025; 81001; 87040; 87086; 74176; 99284; 96374; 96375; 96361; J2270; J2405

== ENCOUNTER → 2018-11-18 | Outpatient (CLI) | payer OTHER ==
[2018-11-18 16:23] VITALS: BP 120/87; PULSE 84; TEMP 98.6; BMI 45.6
--- NOTE | 2018-11-18 16:35 | P.PN ---
Subjective Progress Note Date: 11/18/18 DATE OF SERVICE: 11/18/2018 CHIEF COMPLAINT: Morbid obesity HISTORY OF PRESENT ILLNESS: Estefania Lynch is a 43-year-old female who comes with lifelong morbid obesity. She has history of osteoarthritis of the back, knees, and plantar fasciitis. She has history of DVTs during . She has history of fibromyalgia. She has history of hypertensive pylorus with gastroparesis. She completed an upper endoscopy. She denies easy bruising of the skin. She has history of blood clots. At height of 5 feet 3 inches, her ideal body weight is 140 pounds. She comes in 257 pounds from 267 pounds, 4 months ago. She has lost 10 pounds in 4 months. Her highest weight is 293 pounds. Her body mass index highest is 47.4. Today her BMI is 45.7. She is 117 pounds overweight. PAST MEDICAL HISTORY: 1. Morbid obesity due to excess calories 2. Body mass index of 52.0, initial 3. Pulmonary embolism 4. Osteoarthritis of the lower back. 5. Panniculitis 6. Osteoarthritis of the bilateral knees 7. Osteoarthritis of the bilateral hips 8. Plantar fasciitis 9. DVTs during 10. Fibromyalgia PAST SURGICAL HISTORY: 1. 2. Appendectomy 3. Bilateral arthroscopies HOME MEDICATIONS: ALLERGIES: Medications and Allergies Home Medications Medication Instructions Recorded Confirmed Type Hydrocodone/Acetaminophen 1 tab PO DIRECTED 08/31/14 07/29/18 History [Hydrocodon-Acetaminoph 7.5-325] Phentermine HCl [Adipex-P] 37.5 mg PO DAILY 07/29/18 07/29/18 History Topiramate [Topamax] 25 mg PO DAILY 07/29/18 07/29/18 History Allergies Allergy/AdvReac Type Severity Reaction Status Date / Time NSAIDS (Non-Steroidal AdvReac Rash/Hives Verified 07/29/18 15:05 Anti-Inflamma SOCIAL HISTORY: No tobacco use. FAMILY HISTORY: No family history of ulcerative colitis disease or Crohn's disease. Family history of morbid obesity. No lupus in the family. No reports of stomach or esophageal cancer. REVIEW OF ORGAN SYSTEMS: CONSTITUTIONAL: At height of 5 feet 3 inches, her ideal body weight is 140 pounds. Her highest weight is 293 pounds. Her body mass index highest is 52.0. She was 153 pounds overweight. HEENT: Denies any active troubles with vision or hearing. No troubles with swallowing. ENDOCRINE: No diabetes. No hypothyroidism. CARDIOVASCULAR: No reports of palpitations or heart attacks or chest pain. RESPIRATORY: No dyspnea on exertion. No pneumonia. GI: Denies any bright red blood per rectum. No diarrhea. MUSCULOSKELETAL: Has lower back pain and joint pain. No bilateral lower extremity edema. NEURO: No headaches. No seizure disorders. PSYCH: No depression. No suicidal ideation. RHEUMATOLOGIC: No lupus. No rheumatoid arthritis. HEMATOLOGIC: Denies any abnormal bleeding or bruising. Has personal history of DVTs. SKIN: Has panniculitis. No skin cancer. PHYSICAL EXAM: VITAL SIGNS: Height 5 foot 3 inches, weight 257 pounds. BMI 45.7 Vital Signs Temp 98.6 F 11/18/18 16:13 Pulse 84 11/18/18 16:13 Resp BP 120/87 11/18/18 16:13 Pulse Ox GENERAL: Well-developed in no acute distress. HEENT: No scleral icterus. Extraocular movements grossly intact. Hears conversational speech. No nasal drainage. NECK: Supple without lymphadenopathy. CHEST: Nonlabored respirations with equal bilateral excursions. CARDIOVASCULAR: Regular rate and regular rhythm. Distal 2+ pulses. ABDOMEN: Obese, soft, nontender, nondistended. Has panniculitis. MUSCULOSKELETAL: No clubbing, cyanosis. Gross strength 5/5 distal lower extremities. NEURO: No focal or lateralizing signs. Cranial nerves 2 through 12 grossly within normal limits. PSYCH: Appropriate affect. Alert and oriented to person, place and time. SKIN: Good skin turgor. Well perfused. EGD FINDINGS: Squamocolumnar junction 36 cm from the incisors. Diaphragmatic hiatus at 36 cm. Hill grade 2 lower esophageal valve. LA grade A erosive esophagitis. No active duodenitis. Moderate retained food within fundus suspicious of acute or delayed gastric emptying Hypertensive pylorus requiring us persistent pressure to advance scope into the duodenum Chronic gastritis Final Pathologic Diagnosis GASTRIC ANTRUM, BIOPSY: Chronic gastritis. Helicobacter organisms are not identified on routine H+E stained sections. LABS Reviewed: Vitamin D is low. EK lead is normal. ASSESSMENT: 1. Morbid obesity due to excess calories 2. Body mass index of 52.0, initial 3. Hypertensive heart disease. 4. Osteoarthritis of the lower back. 5. Panniculitis 6. Osteoarthritis of the bilateral knees 7. Osteoarthritis of the bilateral hips 8. Plantar fasciitis 9. DVTs during 10. Fibromyalgia 11. Pulmonary embolism 12. Hypertensive pylorus PLAN: 1. Bariatric options between a sleeve, band and a Katherine-en-Y gastric bypass were reviewed in detail. She has changed from sleeve to gastric bypass. Now she has elected for gastric bypass. Robotic assisted approach described. We went over consent as she has hypertensive pylorus with gastroparesis. 2. The [place] [facility] Data was also reviewed with benefits and risks as described. 3. An 8 page second-generation bariatric consent form was reviewed in detail including potential of bleeding, infection, leaks, adequate weight loss, nutr itional deficiencies which the patient demonstrated understanding of the risks. 4. A 2 week high-protein low caloric 800 kcal diet described to address hepatomegaly. 5. Preoperative labs including complete metabolic panel and CBC with type and screen recommended. 6. DVT prophylaxis per [place] [facility]. 7. Antibiotic prophylaxis. 8. Inpatient hospitalization anticipated for more than 2 nights. 9. All questions and concerns were addressed with the patient. 10. She is intermediate risk for complications with history of DVTs and hypertensive pylorus. Objective - Vital Signs Vital signs: Vital Signs Temp 98.6 F 11/18/18 16:13 Pulse 84 11/18/18 16:13 Resp BP 120/87 11/18/18 16:13 Pulse Ox Intake & Output 11/17/18 11/18/18 11/18/18 18:59 06:59 18:59 Weight 116.981 kg
== END | disposition home or self-care (01) ==
LOC: BARWHC3 15:24
PROVIDERS: ATTEND Surgery Plastic and Reconstructive Surgery
DX: E66.01 Morbid (severe) obesity due to excess calories (principal); I11.9 Hypertensive heart disease without heart failure; M47.9 Spondylosis, unspecified; M79.3 Panniculitis, unspecified; M17.0 Bilateral primary osteoarthritis of knee; M16.0 Bilateral primary osteoarthritis of hip; M72.2 Plantar fascial fibromatosis; M79.7 Fibromyalgia; I26.99 Other pulmonary embolism without acute cor pulmonale; I10 Essential (primary) hypertension; Z68.42 Body mass index [BMI] 45.0-49.9, adult; Z88.6 Allergy status to analgesic agent; Z79.899 Other long term (current) drug therapy; Z86.718 Personal history of other venous thrombosis and embolism
CPT/HCPCS: 99211

== ENCOUNTER 2018-12-16 22:57 | Emergency (ER) | payer OTHER ==
[2018-12-16 23:02] VITALS: TEMP 98.7
[2018-12-16] MEDS ORDERED: MORPHINE SULFATE 4 MG/ML SYRINGE IV STA (23:20)
--- NOTE | 2018-12-16 23:26 | ED ---
Chest Pain HPI - General Chief Complaint: Chest Pain Stated Complaint: HINA, Rt Side Chest Pain Time Seen by Provider: 12/16/18 23:03 Source: patient Mode of arrival: ambulatory Limitations: no limitations - History of Present Illness Initial Comments: This patient is a 43-year-old woman who presents to be evaluated for pain in the right side of her chest. The patient states that she started having symptoms in the right back proximally 3 days ago. Over the course of today she states the pain has seemed to be located in the right chest. She indicates the anterior axillary line. She states that it does feel a little bit better if she holds that area. She states it seems a little worse if she takes a deep breath. Patient describes the pain as an aching. Has become progressively more intense and is now severe. She has not noted any coming symptoms. No fevers chills. No cough. No dyspnea. No diaphoresis. MD Complaint: chest pain Onset/Timin -: days(s) Onset: during rest Pain Location: right chest Pain Radiation: none Severity: severe Quality: aching Consistency: constant Improves With: nothing Worsens With: inspiration Treatments Prior to Arrival: none - Related Data Home Medications Medication Instructions Recorded Confirmed HYDROcodone/APAP 7.5-325MG [Ancram 1 tab PO TID 12/16/18 12/16/18 7.5-325] Previous Rx's Medication Instructions Recorded Cyclobenzaprine [Flexeril] 10 mg PO TID #15 tab 12/17/18 Allergies Allergy/AdvReac Type Severity Reaction Status Date / Time NSAIDS (Non-Steroidal AdvReac Rash/Hives Verified 12/16/18 23:34 Anti-Inflamma Review of Systems ROS Statement: Those systems with pertinent positive or pertinent negative responses have been documented in the HPI. ROS Other: All systems not noted in ROS Statement are negative. Constitutional: Denies: fever, chills ENT: Denies: throat pain Respiratory: Denies: cough, dyspnea, wheezes, hemoptysis Cardiovascular: Reports: as per HPI, chest pain. Denies: palpitations, orthopnea, edema, syncope Gastrointestinal: Denies: abdominal pain, nausea, vomiting Genitourinary: Denies: dysuria, hematuria Musculoskeletal: Denies: back pain Skin: Denies: rash Neurological: Denies: headache EKG Findings - EKG Results: EKG: interpreted by ERMD, WNL, sinus rhythm (Rate 74 bpm), normal axis, normal QRS, normal ST/T, no acute changes - CT, Pacemaker, Normal: Normal tracing: normal tracing Past Medical History Past Medical History: Deep Vein Thrombosis (DVT), Fibromyalgia, Hypertension, Osteoarthritis (OA), Pulmonary Embolus (PE) Additional Past Medical History / Comment(s): Chronic back problems with herniated disc, migraines History of Any Multi-Drug Resistant Organisms: None Reported Past Surgical History: Appendectomy, Section, Orthopedic Surgery, Tubal Ligation Additional Past Surgical History / Comment(s): x1, arthroscopic knee sx (3x to RIGHT knee, 2x to LEFT) Past Anesthesia/Blood Transfusion Reactions: No Reported Reaction Additional Past Anesthesia/Blood Transfusion Reaction / Comment(s): No blood transfusion to date Past Psychological History: No Psychological Hx Reported Smoking Status: Former smoker Past Alcohol Use History: None Reported Past Drug Use History: None Reported - Past Family History Father Family Medical History: Diabetes Mellitus, Myocardial Infarction (CT) Additional Family Medical History / Comment(s): Grandmother and grandfather had diabetes. Grandfather had prostate cancer. Mother Family Medical History: No Reported History General Exam Limitations: no limitations General appearance: alert, in no apparent distress Head exam: Present: atraumatic, normocephalic Eye exam: Present: normal appearance. Absent: scleral icterus, conjunctival injection Respiratory exam: Present: normal lung sounds bilaterally. Absent: respiratory distress, wheezes, rales, rhonchi, stridor, chest wall tenderness, accessory muscle use, decreased breath sounds, prolonged expiratory Cardiovascular Exam: Present: regular rate, normal rhythm, normal heart sounds. Absent: systolic murmur, diastolic murmur, rubs, gallop GI/Abdominal exam: Present: soft. Absent: distended, tenderness, guarding, vera ound, rigid, mass Extremities exam: Present: normal inspection, normal capillary refill. Absent: pedal edema, calf tenderness Back exam: Present: normal inspection. Absent: CVA tenderness (R), CVA tenderness (L) Neurological exam: Present: alert Skin exam: Present: warm, dry, intact, normal color. Absent: rash Course Vital Signs 12/16/18 12/17/18 23:00 02:00 Temperature 98.7 F Pulse Rate 83 71 Respiratory 18 16 Rate Blood Pressure 136/99 109/61 O2 Sat by Pulse 97 96 Oximetry Disposition Clinical Impression: Chest wall syndrome Disposition: HOME SELF-CARE Condition: Good Instructions (If sedation given, give patient instructions): Chest Wall Pain (ED) Prescriptions: Cyclobenzaprine [Flexeril] 10 mg PO TID #15 tab Is patient prescribed a controlled substance at d/c from ED?: No Referrals: Lillian Vazquez MD [Primary Care Provider] - 1-2 days
[2018-12-16] MEDS ORDERED: MORPHINE SULFATE 4 MG/ML SYRINGE IM STA (23:57)
[2018-12-16 23:58] LABS: Anisocytosis Slight; Basophils % (A) 0 %; Eosinophils # (A) 0.1 k/uL (0-0.7); Eosinophils % (A) 1 %; HCT 41.8 % (34.0-46.0); HGB 13.4 gm/dL (11.4-16.0); Lymphocytes # (A) 3.5 k/uL (1.0-4.8); Lymphocytes % (A) 33 %; MCH 25.8 pg (25.0-35.0); MCHC 32.2 g/dL (31.0-37.0); MCV 80.3 fL (80.0-100.0); Mean Platelet Volume 6.7; Microcytosis Slight; Monocytes # (A) 0.4 k/uL (0-1.0); Monocytes % (A) 4 %; Neutrophils # (A) 6.2 k/uL (1.3-7.7); Neutrophils % (A) 60 %; Platelet Count 385 k/uL (150-450); RBC 5.21 m/uL (3.80-5.40); RDW 16.8 % (11.5-15.5); WBC 10.5 k/uL (3.8-10.6)
[2018-12-17 00:09] LABS: ALT 22 U/L (9-52); AST 26 U/L (14-36); African American GFR (CKD) >90 (>60 ml/min/1.73 sqM); Albumin 4.2 g/dL (3.5-5.0); Alkaline Phosphatase 65 U/L (38-126); Anion Gap 8 mmol/L; Blood Urea Nitrogen 17 mg/dL (7-17); Calcium 9.1 mg/dL (8.4-10.2); Carbon Dioxide 26 mmol/L (22-30); Chloride 105 mmol/L (98-107); Glucose 100 mg/dL (74-99); Potassium 4.9 mmol/L (3.5-5.1); Sodium 139 mmol/L (137-145); Total Bilirubin 0.7 mg/dL (0.2-1.3); Total Protein 7.5 g/dL (6.3-8.2)
[2018-12-17 00:25] LABS: D-Dimer 0.51 mg/L FEU (<0.60); INR 0.9 (<1.2); Prothrombin Time 9.8 sec (9.0-12.0)
[2018-12-17 00:30] LABS: Partial Thromboplastin Time 20.2 sec (22.0-30.0)
--- NOTE | 2018-12-17 00:43 | XR ---
EXAM: XR Chest, 2 Views CLINICAL HISTORY: Chest pain. TECHNIQUE: Frontal and lateral views of the chest. COMPARISON: CXR dated 05/30/2014. FINDINGS: Lungs: Slightly low lung volumes with crowding of bronchovascular structures. Lungs appear overall clear allowing for limitations of exam. Pleural space: No pleural effusion. No pneumothorax. Heart: Unremarkable. No cardiomegaly. Mediastinum: Unremarkable. Bones/joints: Unremarkable. IMPRESSION: No radiographic evidence of acute cardiopulmonary process allowing for limitations of examination due to slightly low lung volumes.
[2018-12-17] MEDS ORDERED: HYDROcodone/APAP 5-325MG 1 EACH TAB PO STA (01:25)
[2018-12-17 02:04] VITALS: BP 109/61; PULSE 71; RESP 16
== END 2018-12-17 02:45 | disposition home or self-care (01) ==
LOC: EC 22:57
DX: R07.1 Chest pain on breathing (principal); R06.00 Dyspnea, unspecified; Z87.891 Personal history of nicotine dependence; Z79.891 Long term (current) use of opiate analgesic; Z88.6 Allergy status to analgesic agent; Z98.51 Tubal ligation status
CPT/HCPCS: 36415; 93005; 85379; 80053; 84484; 85025; 85610; 85730; 71046; 99285; 96372; J2270

== ENCOUNTER → 2018-12-30 | Outpatient (CLI) | payer OTHER ==
[2018-12-30 17:24] VITALS: BP 121/91; PULSE 76; TEMP 98.2; BMI 46.2
--- NOTE | 2018-12-30 17:38 | P.PN ---
Subjective Progress Note Date: 12/30/18 DATE OF SERVICE: 12/30/2018 CHIEF COMPLAINT: Right upper quadrant pain and morbid obesity HISTORY OF PRESENT ILLNESS: Estefania Lynch is a 43-year-old female who comes with lifelong morbid obesity. She comes in with new right upper back pain. She was on flexeril and now has stopped. She reports weight gain. She is on a diet. No reports of fevers or chills. No reports of nausea or vomiting. At height of 5 feet 3 inches, her ideal body weight is 140 pounds. She comes in 260 pounds from 257 pounds, 1 month ago. She has gained 3 pounds in 1 month. Her highest weight is 293 pounds. Her body mass index highest is 47.4. Today her BMI is 46.2. She is 120 pounds overweight. PAST MEDICAL HISTORY: 1. Morbid obesity due to excess calories 2. Body mass index of 52.0, initial 3. Pulmonary embolism 4. Osteoarthritis of the lower back. 5. Panniculitis 6. Osteoarthritis of the bilateral knees 7. Osteoarthritis of the bilateral hips 8. Plantar fasciitis 9. DVTs during 10. Fibromyalgia PAST SURGICAL HISTORY: 1. 2. Appendectomy 3. Bilateral arthroscopies HOME MEDICATIONS: ALLERGIES: Medications and Allergies Home Medications Medication Instructions Recorded Confirmed Type Hydrocodone/Acetaminophen 1 tab PO DIRECTED 08/31/14 07/29/18 History [Hydrocodon-Acetaminoph 7.5-325] Phentermine HCl [Adipex-P] 37.5 mg PO DAILY 07/29/18 07/29/18 History Topiramate [Topamax] 25 mg PO DAILY 07/29/18 07/29/18 History Allergies Allergy/AdvReac Type Severity Reaction Status Date / Time NSAIDS (Non-Steroidal AdvReac Rash/Hives Verified 07/29/18 15:05 Anti-Inflamma SOCIAL HISTORY: No tobacco use. FAMILY HISTORY: No family history of ulcerative colitis disease or Crohn's disease. Family history of morbid obesity. No lupus in the family. No reports of stomach or esophageal cancer. REVIEW OF ORGAN SYSTEMS: CONSTITUTIONAL: At height of 5 feet 3 inches, her ideal body weight is 140 pounds. Her highest weight is 293 pounds. Her body mass index highest is 52.0. She was 153 pounds overweight. HEENT: Denies any active troubles with vision or hearing. No troubles with swallowing. ENDOCRINE: No diabetes. No hypothyroidism. CARDIOVASCULAR: No reports of palpitations or heart attacks or chest pain. RESPIRATORY: No dyspnea on exertion. No pneumonia. GI: Denies any bright red blood per rectum. No diarrhea. MUSCULOSKELETAL: Has lower back pain and joint pain. No bilateral lower extremity edema. NEURO: No headaches. No seizure disorders. PSYCH: No depression. No suicidal ideation. RHEUMATOLOGIC: No lupus. No rheumatoid arthritis. HEMATOLOGIC: Denies any abnormal bleeding or bruising. Has personal history of DVTs. SKIN: Has panniculitis. No skin cancer. PHYSICAL EXAM: VITAL SIGNS: Height 5 foot 3 inches, weight 260 pounds. BMI 46.2 Vital Signs Temp 98.2 F 12/30/18 17:22 Pulse 76 12/30/18 17:22 Resp BP 121/91 12/30/18 17:22 Pulse Ox GENERAL: Well-developed in no acute distress. HEENT: No scleral icterus. Extraocular movements grossly intact. Hears conversational speech. No nasal drainage. NECK: Supple without lymphadenopathy. CHEST: Nonlabored respirations with equal bilateral excursions. CARDIOVASCULAR: Regular rate and regular rhythm. Distal 2+ pulses. ABDOMEN: Obese, soft, nontender, nondistended. Has panniculitis. MUSCULOSKELETAL: No clubbing, cyanosis. Gross strength 5/5 distal lower extremities. NEURO: No focal or lateralizing signs. Cranial nerves 2 through 12 grossly within normal limits. PSYCH: Appropriate affect. Alert and oriented to person, place and time. SKIN: Good skin turgor. Well perfused. ASSESSMENT: 1. Morbid obesity due to excess calories 2. Body mass index of 52.0 to 46.2 3. Hypertensive heart disease. 4. Osteoarthritis of the lower back. 5. Panniculitis 6. Osteoarthritis of the bilateral knees 7. Osteoarthritis of the bilateral hips 8. Plantar fasciitis 9. DVTs during 10. Fibromyalgia 11. Pulmonary embolism 12. Hypertensive pylorus 13. Right upper back pain. PLAN: 1. Recommend ultrasound of the gallbladder for her right upper back and right upper abdominal pain. 2. Consent for gastric bypass reviewed. 3. Recommend new procedure of cholecystectomy for cholecystitis where she is intermediate risk with past history of DVTs. Objective - Vital Signs Vital signs: Vital Signs Temp 98.2 F 12/30/18 17:22 Pulse 76 12/30/18 17:22 Resp BP 121/91 12/30/18 17:22 Pulse Ox Intake & Output 12/29/18 12/30/18 12/30/18 18:59 06:59 18:59 Weight 118.388 kg
== END | disposition home or self-care (01) ==
LOC: BARWHC3 15:26
PROVIDERS: ATTEND Surgery Plastic and Reconstructive Surgery
DX: E66.01 Morbid (severe) obesity due to excess calories (principal); I11.9 Hypertensive heart disease without heart failure; M47.816 Spondylosis without myelopathy or radiculopathy, lumbar region; M79.3 Panniculitis, unspecified; M17.0 Bilateral primary osteoarthritis of knee; M16.0 Bilateral primary osteoarthritis of hip; M72.2 Plantar fascial fibromatosis; M79.7 Fibromyalgia; M54.6 Pain in thoracic spine; Z68.42 Body mass index [BMI] 45.0-49.9, adult; Z86.718 Personal history of other venous thrombosis and embolism; Z86.711 Personal history of pulmonary embolism; Z90.49 Acquired absence of other specified parts of digestive tract; Z79.899 Other long term (current) drug therapy; Z88.6 Allergy status to analgesic agent
CPT/HCPCS: 99211

== ENCOUNTER → 2019-01-05 | Outpatient (CLI) | payer OTHER ==
--- NOTE | 2019-01-05 12:22 | US ---
EXAMINATION TYPE: US gallbladder DATE OF EXAM: 01/05/2019 COMPARISON: NONE CLINICAL HISTORY: 43-year-old female R10.11 RUQ Pain. RUQ pain gallstones. TECHNIQUE: Multiple sonographic images of the right upper quadrant are obtained. FINDINGS: EXAM MEASUREMENTS: Liver Length: 15.7 cm Gallbladder Wall: 0.2 cm CBD: 0.3 cm Right Kidney: 11.7 x 6.2 x 6.1 cm Pancreas: Suboptimal visualization of the pancreatic tail due to shadowing from bowel gas. Visualize d portions appear wnl Liver: Slight increased attenuation . No focal lesion seen. Gallbladder: wnl Evidence for sonographic Ware's sign: No CBD: wnl Right Kidney: wnl IMPRESSION: 1. At least mild hepatic steatosis. Correlation with LFTs, lipid profile, and patient risk factors. 2. No evidence for cholelithiasis, acute cholecystitis, or biliary ductal dilatation.
== END | disposition home or self-care (01) ==
LOC: RADUSMAIN 07:54
PROVIDERS: ATTEND Surgery Plastic and Reconstructive Surgery
DX: K76.0 Fatty (change of) liver, not elsewhere classified (principal)
CPT/HCPCS: 76705

== ENCOUNTER → 2019-01-11 | Outpatient (CLI) | payer OTHER ==
[2019-01-11 11:18] LABS: Anisocytosis Slight; Basophils % (A) 0 %; Eosinophils # (A) 0.1 k/uL (0-0.7); Eosinophils % (A) 2 %; HCT 41.4 % (34.0-46.0); HGB 13.5 gm/dL (11.4-16.0); Hypochromasia Slight; Lymphocytes # (A) 2.3 k/uL (1.0-4.8); Lymphocytes % (A) 47 %; MCH 27.2 pg (25.0-35.0); MCHC 32.7 g/dL (31.0-37.0); MCV 83.3 fL (80.0-100.0); Mean Platelet Volume 6.4; Monocytes # (A) 0.3 k/uL (0-1.0); Monocytes % (A) 5 %; Neutrophils # (A) 2.1 k/uL (1.3-7.7); Neutrophils % (A) 43 %; Platelet Count 303 k/uL (150-450); Poikilocytosis Slight; RBC 4.97 m/uL (3.80-5.40); RDW 17.6 % (11.5-15.5); WBC 4.9 k/uL (3.8-10.6)
[2019-01-11 11:38] LABS: ALT 32 U/L (9-52); AST 25 U/L (14-36); African American GFR (CKD) >90 (>60 ml/min/1.73 sqM); Albumin 4.2 g/dL (3.5-5.0); Alkaline Phosphatase 68 U/L (38-126); Anion Gap 8 mmol/L; Blood Urea Nitrogen 11 mg/dL (7-17); Calcium 9.2 mg/dL (8.4-10.2); Carbon Dioxide 25 mmol/L (22-30); Chloride 106 mmol/L (98-107); Glucose 93 mg/dL (74-99); Potassium 4.5 mmol/L (3.5-5.1); Sodium 139 mmol/L (137-145); Total Bilirubin 0.7 mg/dL (0.2-1.3); Total Protein 7.4 g/dL (6.3-8.2)
== END | disposition home or self-care (01) ==
LOC: LABPAT 10:21
PROVIDERS: ATTEND Surgery Plastic and Reconstructive Surgery
DX: Z01.812 Encounter for preprocedural laboratory examination (principal)
CPT/HCPCS: 36415; 80053; 85025

== ENCOUNTER 2019-01-18 05:50 | Inpatient (IN) | payer OTHER ==
--- NOTE | 2019-01-17 22:46 | P.GSHP ---
History of Present Illness H&P Date: 01/18/19 DATE OF SERVICE: 01/18/2019 CHIEF COMPLAINT: Morbid obesity HISTORY OF PRESENT ILLNESS: Estefania Lynch is a 43-year-old female who comes with lifelong morbid obesity. She is looking into the sleeve gastrectomy. She has family and friends who has had the sleeve. She denies severe gastroesopha geal reflux disease. No family history of esophageal or stomach cancer. No blood clots in the family. Her highest weight is 293 pounds. She has tried weight watchers, amilcar tena, topamax and adipex for weight loss. Her most weight loss is 18 pounds. She reports no family history of obesity. She has her gallbladder and without problems. No family history of gallbladder problems. She has osteoarthritis of the back, knees, and plantar fasciitis. She had an appendectomy. She had a sleep study. She is not on any medications for her blood pressure. She has history of DVTs during . She has panniculitis. She comes to me in consultation for the first time for evaluation of her morbid obesity. She has history of pyloric stenosis. At height of 5 feet 3 inches, her ideal body weight is 140 pounds. She comes in 267 pounds. Her highest weight is 293 pounds. Her body mass index highest is 47.4. She is 127 pounds overweight. PAST MEDICAL HISTORY: 1. Morbid obesity due to excess calories 2. Body mass index of 52.0, initial 3. Hypertensive heart disease. 4. Osteoarthritis of the lower back. 5. Panniculitis 6. Osteoarthritis of the bilateral knees 7. Osteoarthritis of the bilateral hips 8. Plantar fasciitis 9. DVTs during 10. Fibromyalgia 11. Pulmonary embolism PAST SURGICAL HISTORY: 1. 2. Appendectomy 3. Bilateral arthroscopies 4. Pyloric stenosis HOME MEDICATIONS: ALLERGIES: Medications and Allergies Home Medications Medication Instructions Recorded Confirmed Type Hydrocodone/Acetaminophen 1 tab PO DIRECTED 08/31/14 07/29/18 History [Hydrocodon-Acetaminoph 7.5-325] Phentermine HCl [Adipex-P] 37.5 mg PO DAILY 07/29/18 07/29/18 History Topiramate [Topamax] 25 mg PO DAILY 07/29/18 07/29/18 History Allergies Allergy/AdvReac Type Severity Reaction Status Date / Time NSAIDS (Non-Steroidal AdvReac Rash/Hives Verified 07/29/18 15:05 Anti-Inflamma SOCIAL HISTORY: No tobacco use. FAMILY HISTORY: No family history of ulcerative colitis disease or Crohn's disease. Family history of morbid obesity. No lupus in the family. No reports of stomach or esophageal cancer. REVIEW OF ORGAN SYSTEMS: CONSTITUTIONAL: At height of 5 feet 3 inches, her ideal body weight is 140 pounds. She comes in 267 pounds. Her highest weight is 293 pounds. Her body mass index highest is 47.4. She is 127 pounds overweight. HEENT: Denies any active troubles with vision or hearing. No troubles with swallowing. ENDOCRINE: No diabetes. No hypothyroidism. CARDIOVASCULAR: No reports of palpitations or heart attacks or chest pain. RESPIRATORY: No dyspnea on exertion. No pneumonia. GI: Denies any bright red blood per rectum. No diarrhea. MUSCULOSKELETAL: Has lower back pain and joint pain. No bilateral lower extremity edema. NEURO: No headaches. No seizure disorders. PSYCH: No depression. No suicidal ideation. RHEUMATOLOGIC: No lupus. No rheumatoid arthritis. HEMATOLOGIC: Denies any abnormal bleeding or bruising. No personal history of DVTs. SKIN: Has panniculitis. No skin cancer. PHYSICAL EXAM: VITAL SIGNS: Height 5 foot 3 inches, weight 260 pounds. BMI 46.2 GENERAL: Well-developed in no acute distress. HEENT: No scleral icterus. Extraocular movements grossly intact. Hears conversational speech. No nasal drainage. NECK: Supple without lymphadenopathy. CHEST: Nonlabored respirations with equal bilateral excursions. CARDIOVASCULAR: Regular rate and regular rhythm. Distal 2+ pulses. ABDOMEN: Obese, soft, nontender, nondistended. Has panniculitis. MUSCULOSKELETAL: No clubbing, cyanosis. Gross strength 5/5 distal lower extremities. NEURO: No focal or lateralizing signs. Cranial nerves 2 through 12 grossly within normal limits. PSYCH: Appropriate affect. Alert and oriented to person, place and time. SKIN: Good skin turgor. Well perfused. ASSESSMENT: 1. Morbid obesity due to excess calories 2. Body mass index of 52.0, initial 3. Hypertensive heart disease. 4. Osteoarthritis of the lower back. 5. Panniculitis 6. Osteoarthritis of the bilateral knees 7. Osteoarthritis of the bilateral hips 8. Plantar fasciitis 9. DVTs during 10. Fibromyalgia 11. Pulmonary embolism 12. History of pyloric stenosis PLAN: 1. Bariatric options between a sleeve, band and a Katherine-en-Y gastric bypass were reviewed in detail. The patient elected for a gastric bypass. Robotic assisted approach described. 2. The [place] [facility] Data was also reviewed with benefits and risks as described. 3. An 8 page second-generation bariatric consent form was reviewed in detail including potential of bleeding, infection, leaks, adequate weight loss, nutritional deficiencies which the patient demonstrated understanding of the risks. 4. A 2 week high-protein low caloric 800 kcal diet described to address hepatomegaly. 5. Preoperative labs including complete metabolic panel and CBC with type and screen recommended. 6. DVT prophylaxis per [place] [facility]. 7. Antibiotic prophylaxis. 8. Inpatient hospitalization anticipated for more than 2 nights. 9. All questions and concerns were addressed with the patient. Thank you for this consultation. Past Medical History Past Medical History: Deep Vein Thrombosis (DVT), Fibromyalgia, Hypertension, Musculoskeletal Disorder, Osteoarthritis (OA), Pulmonary Embolus (PE) Additional Past Medical History / Comment(s): Chronic back problems with herniated disc, migraines. DURING HAD DVT 2006, PE 2007. Off HTN RX FOR PAST YEAR. History of Any Multi-Drug Resistant Organisms: None Reported Past Surgical History: Appendectomy, Section, Orthopedic Surgery, Tubal Ligation Additional Past Surgical History / Comment(s): x1, arthroscopic knee sx (3x to RIGHT knee, 2x to LEFT). EGD. Past Anesthesia/Blood Transfusion Reactions: No Reported Reaction Additional Past Anesthesia/Blood Transfusion Reaction / Comment(s): No blood transfusion to date Smoking Status: Former smoker - Past Family History Father Family Medical History: Diabetes Mellitus, Myocardial Infarction ([place]) Additional Family Medical History / Comment(s): Grandmother and grandfather had diabetes. Grandfather had prostate cancer. Mother Family Medical History: No Reported History Medications and Allergies Home Medications Medication Instructions Recorded Confirmed Type HYDROcodone/APAP 7.5-325MG [[place] 1 tab PO TID PRN 12/16/18 01/11/19 History 7.5-325] Allergies Allergy/AdvReac Type Severity Reaction Status Date / Time NSAIDS (Non-Steroidal AdvReac Rash/Hives Verified 01/11/19 12:14 Anti-Inflamma
[~2019-01-18 05:50] MED LIST changes: +CHLORHEXIDINE GLUCONATE 15 ML CUP MUCOUS MEM ONE; +DEXAMETHASONE SOD PHOSPHATE 10 MG/ML 1 ML VIAL IV ONE; +ENOXAPARIN 40 MG/0.4 ML SYRINGE SQ STA; -LACTATED RINGERS 1,000 ML IV SCH; -LIDOCAINE 1% INJ 10MG/ML (20 ML MDV) ONE; +MIDAZOLAM 2 MG/2 ML VIAL IV PRN; +ONDANSETRON 4 MG/2 ML VIAL IVP ONE; +PANTOPRAZOLE 40 MG/10 ML VIAL IV STA; -PROPOFOL 10 MG/ML 20 ML VIAL IV ONE; +SCOPOLAMINE 1.5MG/72HR PATCH TRANSDERM ONE
[2019-01-18] MEDS: LACTATED RINGERS 1,000 ML IV SCH (06:34)
[2019-01-18] MEDS ORDERED: LIDOCAINE 1% 20 ML VIAL (10MG/ML) FOR IV START INTRADERMA ONE (06:34)
[2019-01-18] MEDS ORDERED: PROPOFOL 10 MG/ML 20 ML VIAL IV ONE (07:44)
[2019-01-18] MEDS ORDERED: ROCURONIUM BROMIDE 10 MG/ML 10 ML VIAL IV ONE (07:44)
[2019-01-18] MEDS ORDERED: MIDAZOLAM 2 MG/2 ML VIAL ONE (07:44)
[2019-01-18] MEDS ORDERED: SUCCINYLCHOLINE CHLORIDE 100 MG/5 ML SYR IV ONE (07:44)
[2019-01-18] MEDS ORDERED: NEOSTIGMINE 1 MG/ML 10 ML VIAL ONE (07:44)
[2019-01-18] MEDS ORDERED: KETAMINE 10 MG/ML 20 ML VIAL ONE (07:44)
[2019-01-18] MEDS ORDERED: LIDOCAINE 1% INJ 10MG/ML (20 ML MDV) ONE (07:44)
[2019-01-18] MEDS ORDERED: GLYCOPYRROLATE 0.2 MG/ML 2 ML VIAL ONE (07:44)
[2019-01-18] MEDS ORDERED: fentaNYL (PF) 50 MCG/ML 2 ML AMP ONE (07:44)
[2019-01-18] MEDS ORDERED: LIDOCAINE 1%-EPI 1:100,000 20 ML VIAL SQ ONE (08:25)
[2019-01-18] MEDS ORDERED: LACTATED RINGERS 1,000 ML IV ONE (10:04)
[2019-01-18] MEDS ORDERED: HYOSCYAMINE ORAL DROPS 1.875 MG/15 ML BOTTLE PO PRN (11:33)
[2019-01-18] MEDS ORDERED: HYDROmorphone 1 MG/ML 1 ML SYRINGE IVP PRN (11:33)
[2019-01-18] MEDS ORDERED: NALOXONE 0.4 MG/ML 1 ML VIAL IV PRN (11:33)
[2019-01-18] MEDS ORDERED: HYDROcodone/APAP 15 ML SOLUTION PO PRN (11:33)
[2019-01-18] MEDS ORDERED: diphenhydrAMINE 50 MG/ML 1 ML VIAL IVP PRN (11:33)
--- NOTE | 2019-01-18 11:33 | P.OP ---
Date of Procedure: 01/18/19 Description of Procedure: DESCRIPTION OF PROCEDURE(S): SURGEON: KAREN LUCAS MD PREOPERATIVE DIAGNOSES: 1. Morbid obesity due to excess calories 2. Body mass index of 52.0, initial 3. Hypertensive heart disease. 4. Osteoarthritis of the lower back. 5. Panniculitis 6. Osteoarthritis of the bilateral knees 7. Osteoarthritis of the bilateral hips 8. Plantar fasciitis 9. DVTs during 10. Fibromyalgia 11. Pulmonary embolism 12. History of pyloric stenosis POSTOPERATIVE DIAGNOSES: 1. Morbid obesity due to excess calories 2. Body mass index of 52.0, initial 3. Hypertensive heart disease. 4. Osteoarthritis of the lower back. 5. Panniculitis 6. Osteoarthritis of the bilateral knees 7. Osteoarthritis of the bilateral hips 8. Plantar fasciitis 9. DVTs during 10. Fibromyalgia 11. Pulmonary embolism 12. History of pyloric stenosis OPERATION: 1. Robotic assisted da Leonel Xi laparoscopic Melissa-en-Y gastric bypass, 100cm antecolic antegastric Melissa limb, with 21 mm EEA. 2. Intraoperative esophagogastrojejunoscopy. ANESTHESIA: General with local ESTIMATED BLOOD LOSS: 10 mL SPECIMENS REMOVED: None. COMPLICATIONS: NONE. INDICATIONS: Estefania Lynch is a 43-year-old female who comes with lifelong morbid obesity. Her highest weight is 293 pounds. She has tried weight watchers, amilcar tena, topamax and adipex for weight loss. Her most weight loss is 18 pounds. She has osteoarthritis of the back, knees, and plantar fasciitis. She had an appendectomy. She had a sleep study. She is not on any medications for her blood pressure. She has history of DVTs during . She has panniculitis. She has history of pyloric stenosis. After all surgical options, she selected gastric bypass. At height of 5 feet 3 inches, her ideal body weight is 140 pounds. She comes in 260 pounds from 267 pounds, 3 months ago. Her highest weight is 293 pounds. Her body mass index highest is 47.4. She is 127 pounds overweight. She now presents to undergo conversion to robotic assisted gastric bypass. A second-generation bariatric consent form was described in detail including the possibility of protein malnutrition, leaks, gastrojejunal stricture, venous thrombosis, need for further surgery for which she demonstrated understanding. Benefits and risks of the procedure were described at length. Informed consent was obtained. DESCRIPTION: The patient was brought into the operating room theater. She was placed on a split leg table. Preoperatively she had received Lovenox subcutaneously for DVT prophylaxis. Additionally she had undergone Peridex oral solution as an oral decontaminant. After general induction, the abdomen was prepped and draped in standard sterile fashion. Ioban draping was placed along the abdomen. A robotic da Leonel Xi system was prepped and primed. The xiphoid to umbilicus was measured of 26.5 cm. Trochars were placed at 20 cm from the xiphoid. Proposed port sites were marked with indelible marker along the anterior axillary line bilaterally, mid clavicular line bilaterally with each port marked 10 cm from each other. The assistant signal maintainer port was marked along the right lateral lower abdominal wall. The robotic stapler port was marked for the right midclavicular line including along the left midclavicular line. A 5 mm 0 degrees laparoscopic trocar entry was performed along the left upper quadrant. The abdomen was insufflated to 15 mmHg pressure, which she tolerated well. Diagnostic laparoscopy demonstrated no injury to bowel, viscera, or mesentery. The liver surface was unremarkable. No evidence of large prominent hiatal hernia was encountered. No small bowel dilation was identified or evidence of bowel obstruction. An 8 mm camera port was placed left lateral to the umbilicus at the epigastrium, 12 cm distal to the xiphoid. Next, 12-mm robot stapler port was placed along the right mid abdomen. An 12 mm port was exchanged along the left upper quadrant. An 8 mm port was placed on the left lateral abdominal wall under direct localization. Please note that the ports were placed 18 to 20 cm away from the target anatomy of the stomach. Care was taken to check that each robotic arm was safely away from collision with the bed or the patient. At the epigastrium, a medium sized Maikol liver retractor was placed under direct visualization with the Iron Mamma Logist placed under the right shoulder of the patient. The patient was repositioned in reverse Trendelenburg position at 16-degress after lowering the bed. The robot was docked over the patient. Using grasper for arm 3, a grasper for arm 1, including vessel sealer for arm 4, the robotic system was docked and primed as described. Instruments were interchanged by the assistant signal maintainer including endoscissors, the needle stunt driver, and stapler. I had sat at the console. The transverse mesocolon and greater omentum had multilayers which required direct incision to create a window. Careful dissection over 30 minutes was performed at a complexity to her case. Next, the jejunostomy portion of the case was prepared. The ligament of Treitz was identified and measured 60 cm antegrade and marked using 2-0 Silk. The jejunum was divided at the 60 cm point using 60-mm white loads above the suture measurement. The biliopancreatic limb was held in place. The Melissa limb was measured 100 cm in an antegrade fashion to avoid tension along the proposed gastrojejunal anastomosis. At 100 cm along the anti-mesenteric border of the Melissa limb, a jejunojejunostomy was proposed whereby enterotomies were created along the biliopancreatic limb including the Melissa limb using a Bovie cautery. A stay suture of 2-0 Silk was placed to align and create the anastomosis. The enterotomies along the anti-mesenteric borders were created followed by unidirectional fire from the patient's right side using 60 mm white load Smart technology robotic stapler. The jejunojejunostomy was found to be hemostatic. The enterotomy was closed after horizontal mattress stitch of 2-0 silk used to elevate the enterotomy followed by closure with the robotic stapler white and blue loads. The jejunal limb was temporarily tacked along the left upper quadrant. Attention was now brought to the creation of the gastrojejunostomy. Along the lesser curvature of the stomach between the second and third veins and above the angularis incisura, dissection was made along the retrogastric space to allow first firing of the robotic staple. The sleeve was divided proximal to the angularis incisura. The robot was temporarily undocked for completion of the gastrojejunostomy using an Orvil. The patient was then prepared for placement of a Orvil. The patient was Mallampati 2. A 21-mm Orvil was selected for placement by the nurse layaway clerk. The Orvil tubing was placed anterior to the staple line of the gastric pouch and brought out through the left inferior lateral port. The Orvil was then carefully and successfully navigated with the help of the nurse layaway clerk into the gastric pouch. The sutures were identified and divided. The tubing was from the 21 mm anvil. Using aseptic technique all instruments including port sites were exchanged. As the Orvil had been placed, the blind jejunal limb was brought proximally into the upper abdomen. The transverse mesocolon was minimally bulky and undisturbed. No torsion was found upon the Melissa limb. No tension was identified as the limb was brought along the upper abdomen. The blind jejunal limb was opened using Bovie cautery. The 21-mm EEA stapler was brought through the left anterior lateral port site from the left side. Please note that the trocars from the Orvil tubing, including the port, were removed to minimize contamination from the oral cyndy. The EEA stapler was brought through the open jejunal limb and its needle was deployed at the antimesenteric border where the anvil were mated for approximately 1 minute upon firing. The stapler was removed after irrigating the shaft of the instrument with warm normal saline. Donuts were found to be intact on both sides. The Infoharmoni Xi robot was then re-docked. The open jejunal limb defect was closed using 60 mm white loads after releasing any tension from the blind jejunal limb. Care was taken to avoid any long blind limb to avoid candycane syndrome. Reinforcement sutures were placed along the gastrojejunal anastomosis. The Hassan and jejunojejunostomy mesenteric defects were obliterated by her intra-abdominal fat. I then went to the head of the bed to perform the esophagogastrojejunoscopy and a leak test. An Olympus gastroscope was passed along the posterior oropharynx which was unremarkable for any injury to the vocal cords. The scope was passed down to the proximal portion of the pouch, whereby no active bleeding was encountered. Excellent visualization of the gastrojejunostomy anastomosis, including the Melissa limb was encountered with endoscopic image obtained. The anastomosis was found to be patent. The gastrointestinal tract was desufflated. No evidence of intraoperative leak was encountered as the gastric pouch and anastomosis were submerged under normal saline solution. The robot was then undocked. I then went back to the bedside of the patient, whereby with coordinated effort of the assistant signal maintainer, irrigation was aspirated from the upper abdominal cavity. Tisseel was placed circumferentially over the anastomosis of the gastrojejunostomy. The fascial defect of the EEA stapler was closed using Humphrey Garcia and 0 Vicryl. All instruments and pneumoperitoneum were evacuated from the abdominal cavity. The port correlating with the EEA stapler device was copiously irrigated normal saline solution and hydrogen peroxide. The rest of incisions were reapproximated using by 4-0 Monocryl in an interrupted subcuticular fashion. Local anesthetic was infiltrated along the skin for postop analgesia. Liquid glue was applied to the skin. OptiFoam dressing was placed along the EEA stapler site. At the end of the procedure, needle, sponge and instrument count had been verified correct by the rn neurosurgical. She had tolerated the procedure well and was extubated and taken to the postanesthesia unit in stable condition. Operative Findings: 1. No intra-abdominal adhesions identified along the epigastrium or lower pelvis 2. Bypass performed using 100 cm melissa limb secondary to avoid increased tension at 150 cm. 3. Talley defect and jejunojejunostomy defect obliterated by moderate intra- abdominal fat. 4. Leak test negative with gastrojejunal anastomosis patent and hemostatic. 5. Robotic staplers 9 loads, 4 blue, 2 whites, and 3 greens black loads 60 mm used. 6. Gastric sleeve resected using black loads proximal to angularis incisura 7. Anastomosis reinforced at 9:00, 12:00 and 3 o'clock position 8. Extremely thickened multilayer greater omentum adding complexity to case with window created for Melissa limb 9. Thoracic length 26 cm from xiphoid to umbilicus. 10. Incisional hernia at previous open appendectomy site, right lower quadrant 11. Console time 2 hr 1 min
[2019-01-18] MEDS: HYDROmorphone 0.5 MG/0.5 ML SYRINGE IVP PRN ×4 (12:15→18:06)
--- NOTE | 2019-01-18 12:36 | P.HPADDEND ---
H&P Addendum H&P Addendum Date: 01/18/19 Correction to H&P, patient has elected for gastric bypass over sleeve for history of pyloric stenosis. Benefits and risks also reviewed.
[2019-01-18] MEDS: ALBUTEROL NEBULIZED 2.5 MG/3 ML INHALATION SCH ×3 (17:07→21:08)
[2019-01-18] MEDS: ACETAMINOPHEN IV (For NPO) 1,000 MG in EMPTY BAG 1 BAG IVPB SCH ×2 (18:04→21:29)
[2019-01-18] MEDS: SIMETHICONE 40 MG/0.6 ML DROPS 2,000 MG/30 ML BOTTLE PO SCH ×3 (18:05→23:09)
[2019-01-18] MEDS: 0.9% NACL WITH KCL 20 MEQ/L 1,000 ML IV SCH ×2 (18:05→21:03)
[2019-01-19] MEDS: 0.9% NACL WITH KCL 20 MEQ/L 1,000 ML IV SCH ×2 (04:02→09:33)
[2019-01-19] MEDS: ACETAMINOPHEN IV (For NPO) 1,000 MG in EMPTY BAG 1 BAG IVPB SCH ×2 (05:09→09:33)
[2019-01-19] MEDS: SIMETHICONE 40 MG/0.6 ML DROPS 2,000 MG/30 ML BOTTLE PO SCH ×3 (05:09→17:32)
[2019-01-19] MEDS: LACTATED RINGERS 1,000 ML IV SCH (06:29)
[2019-01-19 07:19] LABS: Anisocytosis Slight; Basophils % (A) 0 %; Eosinophils % (A) 0 %; HCT 37.1 % (34.0-46.0); HGB 11.8 gm/dL (11.4-16.0); Lymphocytes # (A) 1.8 k/uL (1.0-4.8); Lymphocytes % (A) 21 %; MCH 26.1 pg (25.0-35.0); MCHC 31.7 g/dL (31.0-37.0); MCV 82.2 fL (80.0-100.0); Mean Platelet Volume 6.7; Monocytes # (A) 0.5 k/uL (0-1.0); Monocytes % (A) 5 %; Neutrophils # (A) 6.1 k/uL (1.3-7.7); Neutrophils % (A) 71 %; Platelet Count 260 k/uL (150-450); RBC 4.51 m/uL (3.80-5.40); RDW 17.1 % (11.5-15.5); WBC 8.6 k/uL (3.8-10.6)
[2019-01-19 07:35] LABS: African American GFR (CKD) >90 (>60 ml/min/1.73 sqM); Anion Gap 7 mmol/L; Blood Urea Nitrogen 8 mg/dL (7-17); Calcium 8.5 mg/dL (8.4-10.2); Carbon Dioxide 25 mmol/L (22-30); Chloride 109 mmol/L (98-107); Magnesium 1.9 mg/dL (1.6-2.3); Phosphorus 3.6 mg/dL (2.5-4.5); Potassium 4.4 mmol/L (3.5-5.1); Sodium 141 mmol/L (137-145)
[2019-01-19] MEDS: ENOXAPARIN 40 MG/0.4 ML SYRINGE SQ SCH ×2 (07:47→09:33)
[2019-01-19 07:48] VITALS: RESP 15; TEMP 98.3
[2019-01-19] MEDS ORDERED: 1: MVI, ADULT NO.4 WITH VIT K 10 ML, THIAMINE 100 MG, FOLIC ACID 1 MG, POTASSIUM CHLORID IV SCH ×6 (08:00)
[2019-01-19] MEDS: ALBUTEROL NEBULIZED 2.5 MG/3 ML INHALATION SCH ×3 (08:53→16:24)
[2019-01-19] MEDS ORDERED: PANTOPRAZOLE 40 MG/10 ML VIAL IV SCH (09:00)
[2019-01-19] MEDS: ONDANSETRON 4 MG/2 ML VIAL IVP PRN ×2 (09:41→15:28)
--- NOTE | 2019-01-19 11:20 | FL ---
EXAMINATION TYPE: FL UGI DATE OF EXAM: 01/19/2019 COMPARISON: NONE HISTORY: Status post bariatric Katherine-en-Y surgery. Evaluate surgical site. TECHNIQUE: A single contrast UGI study is performed. 1 ounce of Isovue 370 was utilized. 48 seconds of fluoroscopy with 18 images saved. FINDINGS: The patient swallowed contrast without difficulty or delay. Esophageal peristalsis and mo tility are within normal limits. There is good flow of contrast along the diaphragmatic hiatus into proximal limb of the Katherine-en-Y. Patient remains asymptomatic. There is no evidence of contrast extrav asation to suggest leak. IMPRESSION: No evidence of leak or significant obstruction status post bariatric surgery.
[2019-01-19 11:30] VITALS: BMI 46.2
[2019-01-19 15:51] VITALS: BP 128/84; PULSE 61
--- NOTE | 2019-01-19 16:25 | P.DS ---
<Marta Daniels - Last Filed: 01/19/19 16:21> Providers Expected date of discharge: 01/19/19 - Discharge Diagnosis(es) (1) Morbid obesity with BMI of 45.0-49.9, adult Current Visit: Yes Status: Acute (2) Hypertensive heart disease Current Visit: Yes Status: Acute (3) Osteoarthritis Current Visit: Yes Status: Acute Hospital Course: 43-year-old female who underwent robotic-assisted laparoscopic Katherine-en-Y gastric bypass on 01/18/[address] Delacruz. Patient is doing well postoperatively without any immediate complications. She is tolerating clear liquid diet. Denies nausea or vomiting. Pain is controlled on oral medications. She is voiding without difficulty. She is stable for discharge home today. Please see EMR for further hospital course details. Patient is prescribed [place] on an outpatient basis. She is to resume previously prescribed [place] at the time of discharge. Discharge Diagnosis 1. Morbid obesity due to excess calories 2. Body mass index of 52.0, initial 3. Hypertensive heart disease. 4. Osteoarthritis of the lower back. 5. Panniculitis 6. Osteoarthritis of the bilateral knees 7. Osteoarthritis of the bilateral hips 8. Plantar fasciitis 9. DVTs during 10. Fibromyalgia 11. Pulmonary embolism 12. History of pyloric stenosis Nurse practitioner note has been reviewed by physician. Signing provider agrees with the documented findings, assessment, and plan of care. Patient Condition at Discharge: Stable Plan - Discharge Summary Discharge Rx Participant: Yes New Discharge Prescriptions: New Bisacodyl [Dulcolax] 5 mg PO DAILY PRN #10 tablet. PRN Reason: Constipation Simethicone 40 mg/0.6 ml Drops [Mylicon Drops] 40 mg PO PCHS PRN #30 ml PRN Reason: gas Omeprazole 40 mg PO DAILY #30 capsule. Ondansetron Odt [Zofran Odt] 4 mg PO Q8HR PRN #9 tab PRN Reason: Nausea Continue HYDROcodone/APAP 7.5-325MG [[place] 7.5-325] 1 tab PO TID PRN PRN Reason: Pain Discharge Medication List HYDROcodone/APAP 7.5-325MG [[place] 7.5-325] 1 tab PO TID PRN 12/16/18 [History] Bisacodyl [Dulcolax] 5 mg PO DAILY PRN #10 tablet. 01/19/19 [Rx] Omeprazole 40 mg PO DAILY #30 capsule. 01/19/19 [Rx] Ondansetron Odt [Zofran Odt] 4 mg PO Q8HR PRN #9 tab 01/19/19 [Rx] Simethicone 40 mg/0.6 ml Drops [Mylicon Drops] 40 mg PO PCHS PRN #30 ml 01/19/19 [Rx] Follow up Appointment(s)/Referral(s): [facility] [NON-STAFF] - 01/22/19 Activity/Diet/Wound Care/Special Instructions: No driving while taking [place] No lifting over 10 pounds You may shower. No soaking or tub baths Very light activity until you are reevaluated at your follow up appointment with your surgeon Break tablets or open capsules larger than the size of a tic-tac Discharge Disposition: HOME SELF-CARE <Kareen Delacruz - Last Filed: 01/19/19 18:47> Providers Date of admission: 01/18/19 05:50 Attending physician: Kareen Delacruz Primary care physician: Taylor Snyder
--- NOTE | 2019-01-19 18:47 | P.PN ---
Progress Note - Text Progress Note Date: 01/19/19 She is doing well. May be discharged home.
== END 2019-01-19 19:18 | disposition home or self-care (01) | DRG 621 ==
LOC: 2ORMAIN 05:50 → 4SSUR 15:49
PROVIDERS: ADMIT Surgery Plastic and Reconstructive Surgery; ATTEND Surgery Plastic and Reconstructive Surgery
PROC: 8E0W4CZ Robotic Assisted Procedure of Trunk Region, Percutaneous Endoscopic Approach (ICD-10-PCS; 2019-01-18)
PROC: 0DJ08ZZ Inspection of Upper Intestinal Tract, Via Natural or Artificial Opening Endoscopic (ICD-10-PCS; 2019-01-18)
PROC: 0D164ZA Bypass Stomach to Jejunum, Percutaneous Endoscopic Approach (ICD-10-PCS; principal; 2019-01-18 07:45)
DX: E66.01 Morbid (severe) obesity due to excess calories (principal); Z68.42 Body mass index [BMI] 45.0-49.9, adult; I11.9 Hypertensive heart disease without heart failure; K43.2 Incisional hernia without obstruction or gangrene; M16.0 Bilateral primary osteoarthritis of hip; M17.0 Bilateral primary osteoarthritis of knee; M47.9 Spondylosis, unspecified; M72.2 Plantar fascial fibromatosis; M79.3 Panniculitis, unspecified; M79.7 Fibromyalgia; G43.909 Migraine, unspecified, not intractable, without status migrainosus; K21.9 Gastro-esophageal reflux disease without esophagitis; Z79.899 Other long term (current) drug therapy; Z86.711 Personal history of pulmonary embolism; Z86.718 Personal history of other venous thrombosis and embolism; Z87.891 Personal history of nicotine dependence; Z90.49 Acquired absence of other specified parts of digestive tract; Z88.6 Allergy status to analgesic agent; Z82.49 Family history of ischemic heart disease and other diseases of the circulatory system; Z83.3 Family history of diabetes mellitus
CPT/HCPCS: 74240; 80051; 81025; 82310; 82565; 83735; 84100; 84520; 85025; 86850; 86900; 86901; 94640; 94760; 94762

== ENCOUNTER → 2019-01-22 | Outpatient (CLI) | payer OTHER ==
[2019-01-22 11:06] VITALS: BP 118/74; PULSE 76; TEMP 98.1; BMI 44.1
--- NOTE | 2019-01-22 18:51 | P.PN ---
Subjective Progress Note Date: 01/22/19 DATE OF SERVICE: 01/22/2019 CHIEF COMPLAINT: Status post gastric bypass HISTORY OF PRESENT ILLNESS: Estefania Lynch is a 43-year-old female is post gastric bypass 01/18/2019. She is postop day 4. No reports of nausea. No reports of fevers or chills. She is tolerating oral liquids. She is passing flatus. Pain is well-controlled. She is ambulating frequently. No reports of pain along bilateral lower extremities were swelling. At height of 5 feet 3 inches, her ideal body weight is 140 pounds. She comes in 248 pound from 260 pounds, 1 month ago. She has lost 12 pounds in 1 month. Her highest weight is 293 pounds. Her body mass index highest is 47.4. PHYSICAL EXAM: VITAL SIGNS: Height 5 foot 3 inches, weight 248 pounds. BMI 44.1 Vital Signs Temp 98.1 F 01/22/19 11:04 Pulse 76 01/22/19 11:04 Resp BP 118/74 01/22/19 11:04 Pulse Ox Intake & Output 01/21/19 01/22/19 01/22/19 18:59 06:59 18:59 Weight 112.945 kg GENERAL: Well-developed in no acute distress. HEENT: No scleral icterus. Extraocular movements grossly intact. Hears conversational speech. No nasal drainage. NECK: Supple without lymphadenopathy. CHEST: Nonlabored respirations with equal bilateral excursions. CARDIOVASCULAR: Regular rate and regular rhythm. Distal 2+ pulses. ABDOMEN: Obese, soft, without cellulitis. Minimal left upper quadrant incisional pain. No cellulitis or infection. MUSCULOSKELETAL: No clubbing, cyanosis. Gross strength 5/5 distal lower extremities. NEURO: No focal or lateralizing signs. Cranial nerves 2 through 12 grossly within normal limits. PSYCH: Appropriate affect. Alert and oriented to person, place and time. SKIN: Good skin turgor. Well perfused. ASSESSMENT: 1. Morbid obesity due to excess calories 2. Body mass index of 52.0 to 44.1 3. Hypertensive heart disease. 4. Osteoarthritis of the lower back. 5. Panniculitis 6. Osteoarthritis of the bilateral knees 7. Osteoarthritis of the bilateral hips 8. Plantar fasciitis 9. DVTs during 10. Fibromyalgia 11. Pulmonary embolism, past history 12. History of pyloric stenosis 13. Status post gastric bypass. PLAN: 1. Fluid intake at least 64 ounces reviewed with start of protein shakes. 2. Follow-up in the office next week. 3. Moderate frequent ambulation advised to minimize risk for pulmonary embolus Objective - Vital Signs Vital signs: Vital Signs Temp 98.1 F 01/22/19 11:04 Pulse 76 01/22/19 11:04 Resp BP 118/74 01/22/19 11:04 Pulse Ox Intake & Output 01/21/19 01/22/19 01/22/19 18:59 06:59 18:59 Weight 112.945 kg
== END | disposition home or self-care (01) ==
LOC: BARWHC3 09:54
PROVIDERS: ATTEND Surgery Plastic and Reconstructive Surgery
DX: Z48.815 Encounter for surgical aftercare following surgery on the digestive system (principal); E66.01 Morbid (severe) obesity due to excess calories; I11.9 Hypertensive heart disease without heart failure; M79.3 Panniculitis, unspecified; M17.0 Bilateral primary osteoarthritis of knee; M16.0 Bilateral primary osteoarthritis of hip; M72.2 Plantar fascial fibromatosis; M79.7 Fibromyalgia; Z98.84 Bariatric surgery status; Z68.41 Body mass index [BMI] 40.0-44.9, adult; Z86.711 Personal history of pulmonary embolism; Z87.19 Personal history of other diseases of the digestive system; Z86.718 Personal history of other venous thrombosis and embolism
CPT/HCPCS: 99211

== ENCOUNTER → 2019-01-27 | Outpatient (CLI) | payer OTHER ==
[2019-01-27 15:54] VITALS: BP 109/76; PULSE 78; TEMP 98.4; BMI 42.7
--- NOTE | 2019-01-27 16:20 | P.PN ---
Subjective Progress Note Date: 01/27/19 DATE OF SERVICE: 01/27/2019 CHIEF COMPLAINT: Status post gastric bypass HISTORY OF PRESENT ILLNESS: Estefania Lynch is a 43-year-old female is post gastric bypass 01/18/2019. She is postop day 9. She is urinating well. No fevers or chills. No infection. She has 20-pound weight loss in 1 month. She is over 1 week out. Her protein intake is low at 29 grams. At height of 5 feet 3 inches, her ideal body weight is 140 pounds. Her highest weight is 293 pounds. Her body mass index highest is 47.4. She comes in 241 pounds from 248 pound, 1 week ago. She has lost 7 pounds in 1 week. Lifetime weight loss of 52 pounds. Lifetime percent excess weight loss of 34%. PHYSICAL EXAM: VITAL SIGNS: Height 5 foot 3 inches, weight 241 pounds. BMI 42.8 Vital Signs Temp 98.4 F 01/27/19 15:45 Pulse 78 01/27/19 15:45 Resp BP 109/76 01/27/19 15:45 Pulse Ox GENERAL: Well-developed in no acute distress. HEENT: No scleral icterus. Extraocular movements grossly intact. Hears conversational speech. No nasal drainage. NECK: Supple without lymphadenopathy. CHEST: Nonlabored respirations with equal bilateral excursions. CARDIOVASCULAR: Regular rate and regular rhythm. Distal 2+ pulses. ABDOMEN: Obese, soft. No infection. MUSCULOSKELETAL: No clubbing, cyanosis. Gross strength 5/5 distal lower extremities. NEURO: No focal or lateralizing signs. Cranial nerves 2 through 12 grossly within normal limits. PSYCH: Appropriate affect. Alert and oriented to person, place and time. SKIN: Good skin turgor. Well perfused. ASSESSMENT: 1. Morbid obesity due to excess calories 2. Body mass index of 52.0 to 42.8 3. Hypertensive heart disease. 4. Osteoarthritis of the lower back. 5. Panniculitis 6. Osteoarthritis of the bilateral knees 7. Osteoarthritis of the bilateral hips 8. Plantar fasciitis 9. DVTs during 10. Fibromyalgia 11. Pulmonary embolism, past history 12. History of pyloric stenosis 13. Status post gastric bypass. PLAN: 1. Recommend intake from protein 29 g to 75 g. 2. Follow up for 1 month post op with labs. Objective - Vital Signs Vital signs: Vital Signs Temp 98.4 F 01/27/19 15:45 Pulse 78 01/27/19 15:45 Resp BP 109/76 01/27/19 15:45 Pulse Ox Intake & Output 01/26/19 01/27/19 01/27/19 18:59 06:59 18:59 Weight 109.543 kg
== END ==
LOC: BARWHC3 15:21
PROVIDERS: ATTEND Surgery Plastic and Reconstructive Surgery
DX: E66.01 Morbid (severe) obesity due to excess calories (principal); Z68.41 Body mass index [BMI] 40.0-44.9, adult
CPT/HCPCS: 97803; G0463; 99211

== ENCOUNTER → 2019-02-08 | Outpatient (CLI) | payer OTHER ==
[2019-02-08 10:57] VITALS: BP 140/76; PULSE 55; RESP 16; TEMP 98.1
[2019-02-08] MEDS: SODIUM CHLORIDE 0.9% 1,000 ML IV SCH ×2 (10:57→11:56)
== END | disposition home or self-care (01) ==
LOC: PROCWHC3 10:45
PROVIDERS: ATTEND Surgery Plastic and Reconstructive Surgery
DX: E86.0 Dehydration (principal)
CPT/HCPCS: 96360; 96361

== ENCOUNTER → 2019-02-08 | Outpatient (CLI) | payer OTHER ==
[2019-02-08 11:33] LABS: Anisocytosis Slight; HCT 39.8 % (34.0-46.0); HGB 12.7 gm/dL (11.4-16.0); Hypochromasia Slight; MCV 81.1 fL (80.0-100.0); Platelet Count 351 k/uL (150-450); Poikilocytosis Slight; RBC 4.91 m/uL (3.80-5.40); RDW 16.7 % (11.5-15.5); WBC 5.1 k/uL (3.8-10.6)
[2019-02-08 11:39] LABS: Partial Thromboplastin Time 25.5 sec (22.0-30.0); Prothrombin Time 10.9 sec (9.0-12.0)
[2019-02-08 17:00] LABS: Iron Saturation 18.87 (12.00-45.00)
[2019-02-08 17:04] LABS: Albumin 4.5 g/dL (3.80-4.90); Albumin/Globulin Ratio 1.88 (1.60-3.17); Anion Gap 10.6 mmol/L (4.00-12.00); Calcium 9.6 mg/dL (8.7-10.3); Carbon Dioxide 27.4 mmol/L (21.6-31.8); Chol/HDL Ratio 3.84; Globulin 2.4 g/dL (1.6-3.3); Magnesium 2.1 mg/dL (1.5-2.4); Phosphorus 4.1 mg/dL (2.4-5.1); Potassium 4.2 mmol/L (3.5-5.5); Total Bilirubin 0.6 mg/dL (0.3-1.2); Total Protein 6.9 g/dL (6.2-8.2)
[2019-02-08 19:26] LABS: Folate, Serum 15.7 ng/mL
[2019-02-09 12:14] LABS: Zinc, Serum 77 ug/dL (60-130)
[2019-02-10 06:25] LABS: Vitamin A 52 ug/dL (38-106)
== END ==
LOC: LABWHC1 10:01
PROVIDERS: ATTEND Surgery Plastic and Reconstructive Surgery
DX: E66.01 Morbid (severe) obesity due to excess calories (principal); E21.1 Secondary hyperparathyroidism, not elsewhere classified; E89.1 Postprocedural hypoinsulinemia; D50.9 Iron deficiency anemia, unspecified; E55.9 Vitamin D deficiency, unspecified; E44.0 Moderate protein-calorie malnutrition; K74.1 Hepatic sclerosis; N19 Unspecified kidney failure; K50.90 Crohn's disease, unspecified, without complications; T56.894A Toxic effect of other metals, undetermined, initial encounter
CPT/HCPCS: 36415; 80053; 80061; 82306; 82525; 82607; 82728; 82746; 83036; 83540; 83550; 83735; 83970; 84100; 84134; 84255; 84425; 84443; 84590; 84630; 85027; 85610; 85730

== ENCOUNTER → 2019-02-18 | Outpatient (CLI) | payer OTHER ==
[~2019-02-18] MED LIST changes: -CHLORHEXIDINE GLUCONATE 15 ML CUP MUCOUS MEM ONE; -DEXAMETHASONE SOD PHOSPHATE 10 MG/ML 1 ML VIAL IV ONE; -ENOXAPARIN 40 MG/0.4 ML SYRINGE SQ STA; -MIDAZOLAM 2 MG/2 ML VIAL IV PRN; -ONDANSETRON 4 MG/2 ML VIAL IVP ONE; -PANTOPRAZOLE 40 MG/10 ML VIAL IV STA; -SCOPOLAMINE 1.5MG/72HR PATCH TRANSDERM ONE; +SODIUM CHLORIDE 0.9% 1,000 ML IV ONE
[2019-02-18 08:22] VITALS: BP 118/81; PULSE 56; RESP 14; TEMP 97.8
== END | disposition home or self-care (01) ==
LOC: PROCWHC3 08:07
PROVIDERS: ATTEND Surgery Plastic and Reconstructive Surgery
DX: E86.0 Dehydration (principal)
CPT/HCPCS: 96360

== ENCOUNTER 2019-02-19 09:21 | Day surgery (SDC) | payer OTHER ==
[2019-02-17 14:31] VITALS: BMI 42.6
--- NOTE | 2019-02-19 07:47 | P.GSHP ---
History of Present Illness H&P Date: 02/19/19 CHIEF COMPLAINT: GERD HISTORY OF PRESENT ILLNESS: The patient is a 43-year-old female who presents reports gastroesophageal reflux disease. Upper endoscopy was offered for further evaluation and management. PAST MEDICAL HISTORY: Please see list. PAST SURGICAL HISTORY: Please see list. MEDICATIONS: Please see list. ALLERGIES: Please see list. SOCIAL HISTORY: No illicit drug use FAMILY HISTORY: No reports of Crohn disease or ulcerative colitis. REVIEW OF ORGAN SYSTEMS: CONSTITUTIONAL: No reports of fevers or chills. GI: Denies any blood in stools or constipation. PHYSICAL EXAM: VITAL SIGNS: Stable GENERAL: Well-developed and pleasant in no acute distress. HEENT: No scleral icterus. Extraocular movements grossly intact. Moist buccal mucosa. NECK: Supple without lymphadenopathy. CHEST: Unlabored respirations. Equal bilateral excursions. CARDIOVASCULAR: Regular rate and rhythm. Distal 2+ pulses. ABDOMEN: Soft, nondistended. MUSCULOSKELETAL: No clubbing, cyanosis, or edema. ASSESSMENT: 1. Gastroesophageal reflux disease PLAN: 1. Recommend proceeding with an upper endoscopy Past Medical History Past Medical History: Deep Vein Thrombosis (DVT), Fibromyalgia, Hypertension, Osteoarthritis (OA), Pulmonary Embolus (PE) Additional Past Medical History / Comment(s): vomiting with both food and fluid intake-being tx as outpt [facility] Procedures for dehydration,Chronic back problems with herniated disc, migraines History of Any Multi-Drug Resistant Organisms: None Reported Past Surgical History: Appendectomy, Bariatric Surgery, Section, Orthopedic Surgery, Tubal Ligation Additional Past Surgical History / Comment(s): x1, arthroscopic knee sx (3x to RIGHT knee, 2x to LEFT),melissa-en-y gastric bypass 01-18-19 Past Anesthesia/Blood Transfusion Reactions: No Reported Reaction Additional Past Anesthesia/Blood Transfusion Reaction / Comment(s): No blood transfusion to date Smoking Status: Former smoker - Past Family History Father Family Medical History: Diabetes Mellitus, Myocardial Infarction ([place]) Additional Family Medical History / Comment(s): Grandmother and grandfather had diabetes. Grandfather had prostate cancer. Mother Family Medical History: No Reported History Medications and Allergies Home Medications Medication Instructions Recorded Confirmed Type HYDROcodone/APAP 7.5-325MG [[place] 1 tab PO TID PRN 07/03/19 09/05/19 History 7.5-325] Omeprazole 40 mg PO DAILY #30 capsule. 01/19/19 02/18/19 Rx Ondansetron Odt [Zofran Odt] 4 mg PO Q8HR PRN #9 tab 01/19/19 02/18/19 Rx Simethicone 40 mg/0.6 ml Drops 40 mg PO PCHS PRN #30 ml 01/19/19 02/18/19 Rx [Mylicon Drops] Allergies Allergy/AdvReac Type Severity Reaction Status Date / Time No Known Drug Allergies Allergy Unknown Verified 02/18/19 08:13 NSAIDS (Non-Steroidal AdvReac Rash/Hives Verified 02/18/19 08:13 Anti-Inflamma
[~2019-02-19 09:21] MED LIST changes: +LACTATED RINGERS 1,000 ML IV SCH; +LIDOCAINE 1% 20 ML VIAL (10MG/ML) FOR IV START INTRADERMA PRN; -SODIUM CHLORIDE 0.9% 1,000 ML IV ONE
[2019-02-19 09:37] VITALS: TEMP 97.7
[2019-02-19] MEDS ORDERED: ONDANSETRON 4 MG/2 ML VIAL IVP ONE (09:59)
[2019-02-19] MEDS ORDERED: LIDOCAINE 1% INJ 10MG/ML (20 ML MDV) ONE (10:21)
[2019-02-19] MEDS ORDERED: PROPOFOL 10 MG/ML 20 ML VIAL IV ONE (10:21)
--- NOTE | 2019-02-19 10:50 | P.PCN ---
Date of Procedure: 02/19/19 Description of Procedure: PREOPERATIVE DIAGNOSIS: Dysphagia. Nausea with vomiting. Morbid obesity. Epigastric abdominal pain POSTOPERATIVE DIAGNOSIS: Dysphagia. Nausea with vomiting. Morbid obesity. Epigastric abdominal pain Distal esophageal spasm Gastrojejunal stricture without chronic ulcer without perforation OPERATION: Esophagogastrojejunoscopy with balloon dilatation of gastrojejunal stricture from 9 to 13.5 mm. Esophagogastrojejunoscopy with esophageal dilation 15 mm SURGEON: Kareen Delacruz MD ANESTHESIA: MAC. INDICATIONS: The patient is a 43-year-old female who presents with a history of dysphagia, gastric bypass including new-onset nausea and vomiting. Benefits and risks of the procedure were described. Informed consent was obtained. DESCRIPTION: The patient was brought into the endoscopy suite and laid in the left lateral decubitus position. After a timeout was confirmed, the procedure was initiated. An Olympus gastroscope was passed along the posterior oropharynx down to the distal esophagus where the squamocolumnar junction was unremarkable. The gastric pouch was entered. A gastrojejunal stricture of 9 mm was found as the adult gastroscope was 9.5 mm in size. A [employer] balloon dilator was placed through the scope. Final insufflation up to 13.5 mm was performed with a total of 2 minutes for the gastrojejunal stricture. Separately, distal esophageal spasm was identified. The distal esophagus was dilated to 15 mm. The mucosa of the gastrojejunal anastomosis was intact with minimal bleeding. No chronic gastrojejunal marginal ulcer was encountered. No full-thickness injury was encountered. The GI tract was desufflated. The patient tolerated the procedure well. FINDINGS: Stricture of approximately 9 mm encountered. No chronic gastrojejunal ulceration encountered. Successful balloon dilatation to 13.5 mm. Distal esophageal spasm dilated to 15 mm Gastric pouch 5 cm. RECOMMENDATIONS: Omeprazole 40 mg daily Will need repeat upper endoscopy with balloon dilation for goal 20 mm. Plan - Discharge Summary Discharge Rx Participant: Yes New Discharge Prescriptions: New Omeprazole 40 mg PO DAILY #90 capsule.dr No Action HYDROcodone/APAP 7.5-325MG [[place] 7.5-325] 1 tab PO TID PRN PRN Reason: Pain Simethicone 40 mg/0.6 ml Drops [Mylicon Drops] 40 mg PO PCHS PRN #30 ml PRN Reason: gas Omeprazole 40 mg PO DAILY #30 capsule. Ondansetron Odt [Zofran Odt] 4 mg PO Q8HR PRN #9 tab PRN Reason: Nausea Discharge Medication List HYDROcodone/APAP 7.5-325MG [[place] 7.5-325] 1 tab PO TID PRN 12/16/18 [History] Omeprazole 40 mg PO DAILY #30 capsule. 01/19/19 [Rx] Ondansetron Odt [Zofran Odt] 4 mg PO Q8HR PRN #9 tab 01/19/19 [Rx] Simethicone 40 mg/0.6 ml Drops [Mylicon Drops] 40 mg PO PCHS PRN #30 ml 01/19/19 [Rx] Omeprazole 40 mg PO DAILY #90 capsule. 02/19/19 [Rx] Follow up Appointment(s)/Referral(s): [facility],. [NON-STAFF] - 02/25/19 Patient Instructions/Handouts: Esophageal Dilation (DC) Activity/Diet/Wound Care/Special Instructions: Liquid diet today. Please take omeprazole at home. Discharge Disposition: HOME SELF-CARE
[2019-02-19 10:58] VITALS: RESP 18
[2019-02-19 11:19] VITALS: BP 98/64; PULSE 56
== END 2019-02-19 11:24 | disposition home or self-care (01) ==
LOC: ORWHC2ENDO 09:21
PROVIDERS: ATTEND Surgery Plastic and Reconstructive Surgery
DX: K95.89 Other complications of other bariatric procedure (principal); Y83.6 Removal of other organ (partial) (total) as the cause of abnormal reaction of the patient, or of later complication, without mention of misadventure at the time of the procedure; E66.01 Morbid (severe) obesity due to excess calories; K22.4 Dyskinesia of esophagus; Z98.84 Bariatric surgery status; K22.2 Esophageal obstruction; Z68.41 Body mass index [BMI] 40.0-44.9, adult; I10 Essential (primary) hypertension; Z86.718 Personal history of other venous thrombosis and embolism; Z86.711 Personal history of pulmonary embolism; Z87.891 Personal history of nicotine dependence; Z79.891 Long term (current) use of opiate analgesic; Z79.899 Other long term (current) drug therapy; M79.7 Fibromyalgia
CPT/HCPCS: 81025; 43249; J2405; J2001; J2704; C1726

== ENCOUNTER → 2019-03-25 | Outpatient (CLI) | payer OTHER ==
[2019-03-25 11:55] VITALS: BP 111/62; PULSE 52; TEMP 98.1; BMI 38.9
--- NOTE | 2019-03-25 12:23 | P.PN ---
Subjective Progress Note Date: 03/25/19 HPI: She comes in with troubles with eating improved after scope. She cannot eat protein. PLAN: 1. EGD repeat Objective - Vital Signs Vital signs: Vital Signs Temp 98.1 F 03/25/19 11:49 Pulse 52 L 03/25/19 11:49 Resp BP 111/62 03/25/19 11:49 Pulse Ox Intake & Output 03/24/19 03/25/19 03/25/19 18:59 06:59 18:59 Weight 99.79 kg
== END | disposition home or self-care (01) ==
LOC: BARWHC3 11:23
PROVIDERS: ATTEND Surgery Plastic and Reconstructive Surgery
DX: E66.01 Morbid (severe) obesity due to excess calories (principal); Z68.39 Body mass index [BMI] 39.0-39.9, adult
CPT/HCPCS: 97803; G0463; 99211

== ENCOUNTER 2019-04-17 20:44 | Emergency (ER) | payer OTHER ==
[2019-04-17 20:55] VITALS: RESP 16
--- NOTE | 2019-04-17 21:47 | ED ---
Overdose HPI - General Chief Complaint: Recheck/Abnormal Lab/Rx Stated Complaint: Diff Breathing Time Seen by Provider: 04/17/19 20:47 Source: patient, EMS, RN notes reviewed, old records reviewed Mode of arrival: EMS Limitations: no limitations - History of Present Illness Initial Comments: This is a 43-year-old female who does admit to daily smoking of marijuana coming in for evaluation of not feeling well. Patient admits to taking 80 mg amenable of some sore prior to arrival. Patient states she's having difficulty filling her hands feeling her feet her mouth is significantly dry and tingling. Patient denies any other drug or alcohol abuse today. Patient's presented by EMS. is at bedside currently. Patient currently no acute distress appears calm. Patient does admit to taking the marijuana at a ball today. MD Complaint: accidental overdose (Patient was taking out of [place] for entertainment) -: hour(s) How Overdose Was Discovered: called family/friend, called 911 Context: Accidental Overdose: wanted to get high Treatments Prior to Arrival: none - Related Data Home Medications Medication Instructions Recorded Confirmed HYDROcodone/APAP 7.5-325MG [[place] 1 tab PO TID PRN 12/16/18 03/25/19 7.5-325] Previous Rx's Medication Instructions Recorded Omeprazole 40 mg PO DAILY #30 capsule. 01/19/19 Ondansetron Odt [Zofran Odt] 4 mg PO Q8HR PRN #9 tab 01/19/19 Simethicone 40 mg/0.6 ml Drops 40 mg PO PCHS PRN #30 ml 01/19/19 [Mylicon Drops] Omeprazole 40 mg PO DAILY #90 capsule. 02/19/19 Allergies Allergy/AdvReac Type Severity Reaction Status Date / Time NSAIDS (Non-Steroidal AdvReac Rash/Hives Verified 03/25/19 13:14 Anti-Inflamma Review of Systems ROS Statement: Those systems with pertinent positive or pertinent negative responses have been documented in the HPI. ROS Other: All systems not noted in ROS Statement are negative. Past Medical History Past Medical History: Deep Vein Thrombosis (DVT), Fibromyalgia, Hypertension, Osteoarthritis (OA), Pulmonary Embolus (PE) Additional Past Medical History / Comment(s): Chronic back problems with herniated disc, migraines History of Any Multi-Drug Resistant Organisms: None Reported Past Surgical History: Appendectomy, Bariatric Surgery, Section, Orthopedic Surgery, Tubal Ligation Additional Past Surgical History / Comment(s): x1, arthroscopic knee sx (3x to RIGHT knee, 2x to LEFT) gastric bypass 01-18-19 Past Anesthesia/Blood Transfusion Reactions: No Reported Reaction Additional Past Anesthesia/Blood Transfusion Reaction / Comment(s): No blood transfusion to date Past Psychological History: No Psychological Hx Reported Smoking Status: Former smoker Past Drug Use History: Marijuana - Past Family History Father Family Medical History: Diabetes Mellitus, Myocardial Infarction ([place]) Additional Family Medical History / Comment(s): Grandmother and grandfather had diabetes. Grandfather had prostate cancer. Mother Family Medical History: No Reported History General Exam Limitations: no limitations General appearance: anxious Head exam: Present: atraumatic, normocephalic, normal inspection Eye exam: Present: normal appearance, PERRL, EOMI. Absent: scleral icterus, conjunctival injection, periorbital swelling ENT exam: Present: normal exam, mucous membranes moist Neck exam: Present: normal inspection. Absent: tenderness, meningismus, lymphadenopathy Respiratory exam: Present: normal lung sounds bilaterally. Absent: respiratory distress, wheezes, rales, rhonchi, stridor Cardiovascular Exam: Present: regular rate, normal rhythm, normal heart sounds. Absent: systolic murmur, diastolic murmur, rubs, gallop, clicks GI/Abdominal exam: Present: soft, normal bowel sounds. Absent: distended, tenderness, guarding, rebound, rigid Extremities exam: Present: normal inspection, full ROM, normal capillary refill. Absent: tenderness, pedal edema, joint swelling, calf tenderness Back exam: Present: normal inspection Neurological exam: Present: alert, oriented X3, CN II-XII intact Psychiatric exam: Present: normal affect, normal mood Skin exam: Present: warm, dry, intact, normal color. Absent: rash Course Vital Signs 04/17/19 20:51 Temperature 98.1 F Pulse Rate 92 Respiratory 16 Rate Blood Pressure 146/93 O2 Sat by Pulse 98 Oximetry - Reevaluation(s) Reevaluation #1: 04/17/19 21:46 Medical records reviewed Reevaluation #2: 04/17/19 21:46 currently actively vomiting Medical Decision Making - Medical Decision Making 43 female the ER for evaluation of marijuana use. Patient is time spent normal symptoms are normal baseline. Patient can be discharged home Disposition Clinical Impression: Marijuana use Disposition: HOME SELF-CARE Condition: Good Instructions (If sedation given, give patient instructions): Medicinal Use of Cannabis (ED) Is patient prescribed a controlled substance at d/c from ED?: No Referrals: Lillian Vazquez MD [Primary Care Provider] - 1-2 days
[2019-04-18 00:23] VITALS: BP 121/80; PULSE 64; TEMP 98.2
== END 2019-04-18 00:28 | disposition home or self-care (01) ==
LOC: EC 20:44
DX: F12.90 Cannabis use, unspecified, uncomplicated (principal); G89.29 Other chronic pain; Z87.891 Personal history of nicotine dependence; Z88.6 Allergy status to analgesic agent; Z79.891 Long term (current) use of opiate analgesic
CPT/HCPCS: 99285

== ENCOUNTER → 2019-05-05 | Outpatient (CLI) | payer OTHER ==
[2019-05-05 12:15] VITALS: BP 122/85; PULSE 54; RESP 16; TEMP 97.8
[2019-05-05] MEDS: SODIUM CHLORIDE 0.9% 1,000 ML IV SCH ×2 (12:20→13:38)
[2019-05-05 16:10] LABS: HCT 41.7 % (34.0-46.0); HGB 13.5 gm/dL (11.4-16.0); MCH 27.4 pg (25.0-35.0); MCHC 32.5 g/dL (31.0-37.0); MCV 84.4 fL (80.0-100.0); Mean Platelet Volume 6.7; Platelet Count 247 k/uL (150-450); RBC 4.94 m/uL (3.80-5.40); RDW 15.4 % (11.5-15.5); WBC 5.9 k/uL (3.8-10.6)
[2019-05-05 16:14] LABS: ALT 33 U/L (9-52); AST 38 U/L (14-36); African American GFR (CKD) >90 (>60 ml/min/1.73 sqM); Albumin 3.9 g/dL (3.5-5.0); Alkaline Phosphatase 65 U/L (38-126); Anion Gap 5 mmol/L; Blood Urea Nitrogen 8 mg/dL (7-17); Calcium 9.1 mg/dL (8.4-10.2); Carbon Dioxide 30 mmol/L (22-30); Chloride 110 mmol/L (98-107); Cholesterol 160 mg/dL (<200); Glucose 91 mg/dL (74-99); HDL Cholesterol 43 mg/dL (40-60); LDL Cholesterol,Calculated 88 mg/dL (0-99); Non-African American GFR(CKD) >90 (>60 ml/min/1.73 sqM); Partial Thromboplastin Time 24.8 sec (22.0-30.0); Phosphorus 4.1 mg/dL (2.5-4.5); Potassium 4.4 mmol/L (3.5-5.1); Prothrombin Time 10.7 sec (9.0-12.0); Sodium 145 mmol/L (137-145); Total Bilirubin 0.6 mg/dL (0.2-1.3); Total Protein 6.8 g/dL (6.3-8.2); Triglycerides 144 mg/dL (<150)
[2019-05-06 01:42] LABS: % Iron Saturation 20.52 (12.00-45.00); Iron 55 ug/dL (50-170); Total Iron Binding Capacity 268 ug/dL (228-460)
[2019-05-06 01:51] LABS: Ferritin 98.4 ng/mL (10.0-291.0)
[2019-05-06 01:54] LABS: Folate, Serum 14.9 ng/mL
[2019-05-06 04:13] LABS: Hemoglobin A1C 5.1 % (4.0-6.0)
[2019-05-06 13:40] LABS: Zinc, Serum 61 ug/dL (60-130)
[2019-05-07 06:33] LABS: Vitamin A 36 ug/dL (38-106)
[2019-05-07 06:43] LABS: Vit B1(Thiamine) 38 ug/L (38-122)
== END | disposition home or self-care (01) ==
LOC: PROCWHC3 11:54
PROVIDERS: ATTEND Surgery Plastic and Reconstructive Surgery
DX: E86.0 Dehydration (principal); E66.01 Morbid (severe) obesity due to excess calories; E21.1 Secondary hyperparathyroidism, not elsewhere classified; E89.1 Postprocedural hypoinsulinemia; D50.9 Iron deficiency anemia, unspecified; K90.9 Intestinal malabsorption, unspecified; E55.9 Vitamin D deficiency, unspecified; K76.9 Liver disease, unspecified; N19 Unspecified kidney failure; K50.90 Crohn's disease, unspecified, without complications; Z68.36 Body mass index [BMI] 36.0-36.9, adult
CPT/HCPCS: 36415; 80053; 80061; 82306; 82525; 82607; 82728; 82746; 83036; 83540; 83550; 83735; 83970; 84100; 84134; 84255; 84425; 84443; 84590; 84630; 85027; 85610; 85730; 96360; 96361

== ENCOUNTER 2019-05-06 11:18 | Day surgery (SDC) | payer OTHER ==
[2019-05-05 09:16] VITALS: BMI 36.9
--- NOTE | 2019-05-06 08:40 | P.GSHP ---
History of Present Illness H&P Date: 05/06/19 CHIEF COMPLAINT: GERD HISTORY OF PRESENT ILLNESS: The patient is a 43-year-old female who presents reports gastroesophageal reflux disease. Upper endoscopy was offered for further evaluation and management. PAST MEDICAL HISTORY: Please see list. PAST SURGICAL HISTORY: Please see list. MEDICATIONS: Please see list. ALLERGIES: Please see list. SOCIAL HISTORY: No illicit drug use FAMILY HISTORY: No reports of Crohn disease or ulcerative colitis. REVIEW OF ORGAN SYSTEMS: CONSTITUTIONAL: No reports of fevers or chills. GI: Denies any blood in stools or constipation. PHYSICAL EXAM: VITAL SIGNS: Stable GENERAL: Well-developed and pleasant in no acute distress. HEENT: No scleral icterus. Extraocular movements grossly intact. Moist buccal mucosa. NECK: Supple without lymphadenopathy. CHEST: Unlabored respirations. Equal bilateral excursions. CARDIOVASCULAR: Regular rate and rhythm. Distal 2+ pulses. ABDOMEN: Soft, nondistended. MUSCULOSKELETAL: No clubbing, cyanosis, or edema. ASSESSMENT: 1. Gastroesophageal reflux disease PLAN: 1. Recommend proceeding with an upper endoscopy Past Medical History Past Medical History: Deep Vein Thrombosis (DVT), Fibromyalgia, Hypertension, Osteoarthritis (OA), Pulmonary Embolus (PE) Additional Past Medical History / Comment(s): Chronic back problems with herniated disc, migraines. History of Any Multi-Drug Resistant Organisms: None Reported Past Surgical History: Appendectomy, Bariatric Surgery, Section, Orthopedic Surgery, Tubal Ligation Additional Past Surgical History / Comment(s): Section X1, arthroscopic knee surgery (3X to RIGHT knee, 2X to LEFT), gastric bypass 819. Past Anesthesia/Blood Transfusion Reactions: No Reported Reaction Additional Past Anesthesia/Blood Transfusion Reaction / Comment(s): No blood transfusion to date. Past Psychological History: No Psychological Hx Reported Smoking Status: Former smoker Past Alcohol Use History: None Reported Additional Past Alcohol Use History / Comment(s): SMOKED 1 YEAR TEEN. Past Drug Use History: Marijuana Additional Drug Use History / Comment(s): Uses Marijuana once daily. Aware no use 24 hrs prior to procedure. - Past Family History Father Family Medical History: Diabetes Mellitus, Myocardial Infarction ([place]) Additional Family Medical History / Comment(s): Grandmother and grandfather had diabetes. Grandfather had prostate cancer. Mother Family Medical History: No Reported History Medications and Allergies Home Medications Medication Instructions Recorded Confirmed Type HYDROcodone/APAP 7.5-325MG [[place] 1 tab PO TID PRN 12/16/18 05/05/19 History 7.5-325] Allergies Allergy/AdvReac Type Severity Reaction Status Date / Time NSAIDS (Non-Steroidal AdvReac Rash/Hives Verified 05/05/19 12:13 Anti-Inflamma
[~2019-05-06 11:18] MED LIST changes: +DEXAMETHASONE SOD PHOSPHATE 10 MG/ML 1 ML VIAL IV ONE; +ONDANSETRON 4 MG/2 ML VIAL IVP ONE
[2019-05-06 12:09] VITALS: RESP 16; TEMP 97.5
[2019-05-06] MEDS ORDERED: PROPOFOL 10 MG/ML 20 ML VIAL IV ONE (12:51)
[2019-05-06] MEDS ORDERED: LIDOCAINE 1% INJ 10MG/ML (20 ML MDV) ONE (12:51)
--- NOTE | 2019-05-06 13:09 | P.PCN ---
Date of Procedure: 05/06/19 Description of Procedure: PREOPERATIVE DIAGNOSIS: Gastrojejunal stricture Dysphagia. Nausea with vomiting. Morbid obesity. Epigastric abdominal pain POSTOPERATIVE DIAGNOSIS: Dysphagia. Nausea with vomiting. Morbid obesity. Epigastric abdominal pain Gastrojejunal stricture with chronic ulcer without perforation OPERATION: Esophagogastrojejunoscopy with balloon dilation, 12 to 18.5 mm. SURGEON: Kareen Delacruz MD ANESTHESIA: MAC. INDICATIONS: The patient is a 43-year-old female who presents with a history of dysphagia including new-onset nausea and vomiting. Benefits and risks of the procedure were described. Informed consent was obtained. DESCRIPTION: The patient was brought into the endoscopy suite and laid in the left lateral decubitus position. After a timeout was confirmed, the procedure was initiated. An Olympus gastroscope was passed along the posterior oropharynx down to the di stal esophagus where the squamocolumnar junction was unremarkable. The gastric pouch was entered. A gastrojejunal stricture of 12 mm was found as the adult gastroscope was 9.5 mm in size. A [employer] balloon dilator was placed through the scope. Final insufflation up to 18.5 mm was performed with a total of 2 minutes for the gastrojejunal stricture. A chronic gastrojejunal marginal ulcer was encountered. No full-thickness injury was encountered. The GI tract was desufflated. The patient tolerated the procedure well. FINDINGS: Stricture of approximately 12 mm encountered. Chronic gastrojejunal ulceration encountered. Successful balloon dilatation to 18.5 mm. RECOMMENDATIONS: Omeprazole including Carafate therapy for 4 weeks
[2019-05-06 13:36] VITALS: BP 131/84; PULSE 50
== END 2019-05-06 13:57 | disposition home or self-care (01) ==
LOC: ORWHC2ENDO 11:18
PROVIDERS: ATTEND Surgery Plastic and Reconstructive Surgery
DX: K95.89 Other complications of other bariatric procedure (principal); K25.9 Gastric ulcer, unspecified as acute or chronic, without hemorrhage or perforation; I10 Essential (primary) hypertension; M19.90 Unspecified osteoarthritis, unspecified site; M79.7 Fibromyalgia; G43.909 Migraine, unspecified, not intractable, without status migrainosus; Z98.51 Tubal ligation status; Z87.891 Personal history of nicotine dependence; Z86.718 Personal history of other venous thrombosis and embolism; Z83.3 Family history of diabetes mellitus; Z82.49 Family history of ischemic heart disease and other diseases of the circulatory system; Z80.42 Family history of malignant neoplasm of prostate; Z79.891 Long term (current) use of opiate analgesic; Z88.6 Allergy status to analgesic agent
CPT/HCPCS: 81025; 43245; J2001; J2704; C1726; 43249

== ENCOUNTER → 2019-05-19 | Outpatient (CLI) | payer OTHER ==
[2019-05-19 11:59] VITALS: BP 122/72; PULSE 45; TEMP 98.2; BMI 35.0
--- NOTE | 2019-05-19 13:33 | P.PN ---
Subjective Progress Note Date: 05/19/19 DATE OF SERVICE: 05/19/2019 CHIEF COMPLAINT: Status post gastric bypass HISTORY OF PRESENT ILLNESS: Estefania Lynch is a 43-year-old female is post gastric bypass 01/18/2019. She is 4 months out. She comes in with history of marginal ulcers of the gastric bypass. She reports low heart rarte in the 40s. She denies stress. Her pain is of the epigastrium is better. She is more forgetfulness. She has mood swings. She has history of low vitamin D. She reports 8 to 9 hrs of sleep. At height of 5 feet 3 inches, her ideal body weight is 140 pounds. Her highest weight is 293 pounds. Her body mass index highest is 52.0. She comes in 198 pounds from 220 pounds, 2 months ago. She has lost 22 pounds in 2 months. Lifetime weight loss of 95 pounds. Lifetime percent excess weight loss of 62%. PHYSICAL EXAM: VITAL SIGNS: Height 5 foot 3 inches, weight 198 pounds. BMI 35.1 Vital Signs Temp 98.2 F 05/19/19 11:54 Pulse 45 L 05/19/19 11:54 Resp BP 122/72 05/19/19 11:54 Pulse Ox GENERAL: Well-developed in no acute distress. HEENT: No scleral icterus. Extraocular movements grossly intact. Hears conversational speech. No nasal drainage. NECK: Supple without lymphadenopathy. CHEST: Nonlabored respirations with equal bilateral excursions. CARDIOVASCULAR: Regular rate and regular rhythm. Distal 2+ pulses. ABDOMEN: Obese, soft. No infection. MUSCULOSKELETAL: No clubbing, cyanosis. Gross strength 5/5 distal lower extremities. NEURO: No focal or lateralizing signs. Cranial nerves 2 through 12 grossly within normal limits. PSYCH: Appropriate affect. Alert and oriented to person, place and time. SKIN: Good skin turgor. Well perfused. Labs: Reviewed Vitamin B1 is low, vitamin D is low, calcium, Pre-albumin is low, Vitamin A is low, PTH elevated, TSH suppressed ASSESSMENT: 1. Morbid obesity due to excess calories 2. Body mass index of 52.0 to 35.1 3. Hypertensive heart disease. 4. Osteoarthritis of the lower back. 5. Panniculitis 6. Osteoarthritis of the bilateral knees 7. Osteoarthritis of the bilateral hips 8. Plantar fasciitis 9. DVTs during 10. Fibromyalgia 11. Pulmonary embolism, past history 12. History of pyloric stenosis 13. Status post gastric bypass. 14. Gastrojejunal stricture 15. Thiamine deficiency 16. Vitamin D deficiency 17. Bradycardia 18. Vitamin A deficiency PLAN: 1. Recommend referral to market stall vendor for bradycardia. 2. Upper endoscopy as needed 3. Food sources reviewed for treatment for thiamine and Vitamin D deficiency Objective - Vital Signs Vital signs: Vital Signs Temp 98.2 F 05/19/19 11:54 Pulse 45 L 05/19/19 11:54 Resp BP 122/72 05/19/19 11:54 Pulse Ox Intake & Output 05/18/19 05/19/19 05/19/19 18:59 06:59 18:59 Weight 89.811 kg
== END | disposition home or self-care (01) ==
LOC: BARWHC3 11:16
PROVIDERS: ATTEND Surgery Plastic and Reconstructive Surgery
DX: Z48.815 Encounter for surgical aftercare following surgery on the digestive system (principal); E66.01 Morbid (severe) obesity due to excess calories; I11.9 Hypertensive heart disease without heart failure; M17.0 Bilateral primary osteoarthritis of knee; M16.0 Bilateral primary osteoarthritis of hip; M79.3 Panniculitis, unspecified; M72.2 Plantar fascial fibromatosis; M79.7 Fibromyalgia; K31.89 Other diseases of stomach and duodenum; K56.699 Other intestinal obstruction unspecified as to partial versus complete obstruction; E51.9 Thiamine deficiency, unspecified; E55.9 Vitamin D deficiency, unspecified; R00.1 Bradycardia, unspecified; E50.9 Vitamin A deficiency, unspecified; Z68.35 Body mass index [BMI] 35.0-35.9, adult; Z87.19 Personal history of other diseases of the digestive system; Z87.09 Personal history of other diseases of the respiratory system; Z86.718 Personal history of other venous thrombosis and embolism; Z98.84 Bariatric surgery status
CPT/HCPCS: 99211

== ENCOUNTER → 2019-11-24 | Outpatient (CLI) | payer OTHER ==
--- NOTE | 2019-11-24 15:59 | P.PN ---
Subjective Progress Note Date: 11/24/19 DATE OF SERVICE: 11/24/2019 CHIEF COMPLAINT: Status post gastric bypass HISTORY OF PRESENT ILLNESS: Estefania Lynch is a 43-year-old female is status post gastric bypass 01/18/2019. She is 9 months out. She comes in with new medical problem of her skin. She has severe panniculitis recalcitrant to treatment ongoing for over 6 months. She has tried nystatin, dermarest, hydrocortisone, apexicon, and topical certacort without improvement of symptoms. She has severe rash along the thighs, breast, and apron. She is looking into a panniculectomy. She brought in pictures for severe skin infection of her pannus. She peports moderate gas, no abdominal pain. At height of 5 feet 3 inches, her ideal body weight is 140 pounds. Her highest weight is 293 pounds. Her body mass index highest is 52.0. She comes in 168 pounds from 198 pounds, 6 months ago. She has lost 30 pounds in 6 months. Lifetime weight loss of 125 pounds. Lifetime percent excess weight loss of 82%. PAST MEDICAL HISTORY: 1. Morbid obesity due to excess calories 2. Body mass index of 52.0, initial 3. Hypertensive heart disease. 4. Osteoarthritis of the lower back. 5. Panniculitis 6. Osteoarthritis of the bilateral knees 7. Osteoarthritis of the bilateral hips 8. Plantar fasciitis 9. DVTs during 10. Fibromyalgia 11. Pulmonary embolism PAST SURGICAL HISTORY: 1. 2. Appendectomy 3. Bilateral arthroscopies 4. Pyloric stenosis 5. Status post gastric bypass HOME MEDICATIONS: ALLERGIES: Home Medications Medication Instructions Recorded Confirmed HYDROcodone/APAP 7.5-325MG [[place] 1 tab PO TID PRN 12/16/18 05/19/19 7.5-325] Citalopram Hydrobromide 20 mg PO HS 05/19/19 05/19/19 [Citalopram HBr] Nystatin [Nystop] 1 applic TOPICAL BID 11/23/19 11/23/19 Previous Rx's Medication Instructions Recorded Omeprazole 40 mg PO DAILY #90 capsule. 05/06/19 Sucralfate [Carafate] 1 gm PO BID #480 ml 05/06/19 SOCIAL HISTORY: No tobacco use. FAMILY HISTORY: No family history of ulcerative colitis disease or Crohn's disease. Family history of morbid obesity. No lupus in the family. No reports of stomach or esophageal cancer. REVIEW OF ORGAN SYSTEMS: CONSTITUTIONAL: At height of 5 feet 3 inches, her ideal body weight is 140 pounds. She comes in 267 pounds. Her highest weight is 293 pounds. Her body mass index highest is 47.4. She is 127 pounds overweight. HEENT: Denies any active troubles with vision or hearing. No troubles with swallowing. ENDOCRINE: No diabetes. No hypothyroidism. CARDIOVASCULAR: No reports of palpitations or heart attacks or chest pain. RESPIRATORY: No dyspnea on exertion. No pneumonia. GI: Denies any bright red blood per rectum. No diarrhea. MUSCULOSKELETAL: Has lower back pain and joint pain. No bilateral lower extremity edema. NEURO: No headaches. No seizure disorders. PSYCH: No depression. No suicidal ideation. RHEUMATOLOGIC: No lupus. No rheumatoid arthritis. HEMATOLOGIC: Denies any abnormal bleeding or bruising. No personal history of DVTs. SKIN: Has panniculitis. No skin cancer. PHYSICAL EXAM: VITAL SIGNS: Height 5 foot 3 inches, weight 168 pounds. BMI 29.8 Vital Signs Temp 98 F 11/24/19 15:56 Pulse 68 11/24/19 15:56 Resp BP 118/68 11/24/19 15:56 Pulse Ox GENERAL: Well-developed in no acute distress. HEENT: No scleral icterus. Extraocular movements grossly intact. Hears conversational speech. No nasal drainage. NECK: Supple without lymphadenopathy. CHEST: Nonlabored respirations with equal bilateral excursions. CARDIOVASCULAR: Regular rate and regular rhythm. Distal 2+ pulses. ABDOMEN: Obese, soft. Panniculitis with pannus over 10 pounds. MUSCULOSKELETAL: No clubbing, cyanosis. Gross strength 5/5 distal lower extremities. NEURO: No focal or lateralizing signs. Cranial nerves 2 through 12 grossly within normal limits. PSYCH: Appropriate affect. Alert and oriented to person, place and time. SKIN: Good skin turgor. Well perfused. ASSESSMENT: 1. Morbid obesity due to excess calories 2. Body mass index of 52.0 to 29.8 3. Hypertensive heart disease. 4. Osteoarthritis of the lower back. 5. Panniculitis 6. Osteoarthritis of the bilateral knees 7. Osteoarthritis of the bilateral hips 8. Plantar fasciitis 9. DVTs during 10. Fibromyalgia 11. Pulmonary embolism, past history 12. History of pyloric stenosis 13. Status post gastric bypass. 14. Gastrojejunal stricture 15. Thiamine deficiency 16. Vitamin D deficiency 17. Bradycardia 18. Vitamin A deficiency PLAN: 1. Recommend adobe layer helper referral for recurrent panniculitis 2. Will need pictures from clinic of her pannus. 3. Nystatin powder prescribed pending adobe layer helper recommendation 4. Recommend bariatric labs
[2019-11-25 08:45] VITALS: BP 118/68; PULSE 68; TEMP 98; BMI 29.7
== END | disposition home or self-care (01) ==
LOC: BARWHC3 15:23
PROVIDERS: ATTEND Surgery Plastic and Reconstructive Surgery
DX: E66.01 Morbid (severe) obesity due to excess calories (principal); Z68.29 Body mass index [BMI] 29.0-29.9, adult; I11.9 Hypertensive heart disease without heart failure; M47.816 Spondylosis without myelopathy or radiculopathy, lumbar region; M79.3 Panniculitis, unspecified; M16.0 Bilateral primary osteoarthritis of hip; M17.0 Bilateral primary osteoarthritis of knee; M72.2 Plantar fascial fibromatosis; M79.7 Fibromyalgia; Z86.711 Personal history of pulmonary embolism; E55.9 Vitamin D deficiency, unspecified; R00.1 Bradycardia, unspecified; E50.9 Vitamin A deficiency, unspecified; E51.9 Thiamine deficiency, unspecified; Z98.84 Bariatric surgery status; O22.30 Deep phlebothrombosis in pregnancy, unspecified trimester; Z3A.00 Weeks of gestation of pregnancy not specified; Z87.19 Personal history of other diseases of the digestive system; Z79.899 Other long term (current) drug therapy; Z98.890 Other specified postprocedural states
CPT/HCPCS: 99211

== ENCOUNTER 2020-01-05 15:49 | Observation (INO) | payer OTHER ==
[2020-01-05] MEDS ORDERED: NALOXONE 0.4 MG/ML 1 ML VIAL IV PRN (16:11)
[2020-01-05] MEDS ORDERED: ACETAMINOPHEN IV (For NPO) 1,000 MG in EMPTY BAG 1 BAG IVPB ONE (16:11)
[2020-01-05] MEDS ORDERED: ONDANSETRON 4 MG/2 ML VIAL IVP PRN (16:11)
[2020-01-05] MEDS ORDERED: METOCLOPRAMIDE 5 MG/ML 2 ML VIAL IVP PRN (16:11)
[2020-01-05] MEDS ORDERED: HYDROmorphone 1 MG/ML 1 ML SYRINGE IVP PRN (16:13)
[2020-01-05] MEDS ORDERED: SODIUM CHLORIDE 0.9% 1,000 ML IV ONE (16:13)
[2020-01-05] MEDS: PANTOPRAZOLE 40 MG/10 ML VIAL IV SCH (16:38)
[2020-01-05] MEDS: KETOROLAC 30 MG/ML 1 ML VIAL IVP SCH ×2 (16:38→23:15)
[2020-01-05] MEDS: SODIUM CHLORIDE 0.9% 1,000 ML IV SCH (16:38)
--- NOTE | 2020-01-05 17:15 | US ---
EXAMINATION TYPE: US gallbladder DATE OF EXAM: 01/05/2020 COMPARISON: 01/05/2019 CLINICAL HISTORY: acute cholecystitis. Pain EXAM MEASUREMENTS: Liver Length: 15.4 cm Gallbladder Wall: 0.1 cm CBD: 0.4 cm Right Kidney: 10.8 x 3.9 x 4.8 cm Pancreas: wnl Liver: wnl Gallbladder: Multiple, mobile gallstones Evidence for sonographic Ware's sign: Yes CBD: wnl Right Kidney: wnl IMPRESSION: There are numerous gallstones. No dilated ducts. No focal liver defect. Gallstones appear new compare d to old exam. There was tenderness over the gallbladder during the exam.
[2020-01-05 17:19] LABS: ALT 23 U/L (4-34); AST 30 U/L (14-36); African American GFR (CKD) >90 (>60 ml/min/1.73 sqM); Alkaline Phosphatase 106 U/L (38-126); Anion Gap 9 mmol/L; Blood Urea Nitrogen 9 mg/dL (7-17); Calcium 9.2 mg/dL (8.4-10.2); Carbon Dioxide 26 mmol/L (22-30); Chloride 105 mmol/L (98-107); Glucose 90 mg/dL (74-99); Non-African American GFR(CKD) >90 (>60 ml/min/1.73 sqM); Sodium 140 mmol/L (137-145); Total Bilirubin 0.7 mg/dL (0.2-1.3); Total Protein 6.8 g/dL (6.3-8.2)
[2020-01-05 17:24] LABS: Basophils % (A) 0 %; Eosinophils # (A) 0.1 k/uL (0-0.7); Eosinophils % (A) 2 %; HCT 40.9 % (34.0-46.0); HGB 13.5 gm/dL (11.4-16.0); Lymphocytes # (A) 2.6 k/uL (1.0-4.8); Lymphocytes % (A) 49 %; MCH 29.4 pg (25.0-35.0); MCHC 32.9 g/dL (31.0-37.0); MCV 89.1 fL (80.0-100.0); Monocytes # (A) 0.3 k/uL (0-1.0); Monocytes % (A) 5 %; Neutrophils # (A) 2.2 k/uL (1.3-7.7); Neutrophils % (A) 41 %; Platelet Count 266 k/uL (150-450); RBC 4.59 m/uL (3.80-5.40); RDW 13.8 % (11.5-15.5); WBC 5.2 k/uL (3.8-10.6)
[2020-01-06] MEDS: SODIUM CHLORIDE 0.9% 1,000 ML IV SCH ×4 (05:41→21:40)
[2020-01-06] MEDS: KETOROLAC 30 MG/ML 1 ML VIAL IVP SCH ×3 (05:41→19:08)
[2020-01-06] MEDS: PIPERACILLIN-TAZOBACTAM 3.375 GM in SODIUM CHLORIDE 0.9% 100 ML IVPB SCH ×2 (08:15→18:27)
[2020-01-06] MEDS: PANTOPRAZOLE 40 MG/10 ML VIAL IV SCH (08:15)
--- NOTE | 2020-01-06 10:17 | P.GSHP ---
History of Present Illness CHIEF COMPLAINT: Acute cholecystitis HISTORY OF PRESENT ILLNESS: Estefania Lynch is a 44-year-old female who comes in acutely with right upper quadrant abdominal pain including fevers and chills for the last 2-3 days. She reports eating a salad and yogurt yesterday and has severe right upper quadrant to right upper flank pain. She also reports diarrhea. She reports nausea. No previous episodes. She presented to the [facility] [place] with acute abdominal pain 10 out of 10. A result of her presentation and concern for acute cholecystitis with history of fevers and chills, admission for acute cholecystitis described. At height of 5 feet 3 inches, her ideal body weight is 140 pounds. She comes in 164 pounds from 267 pounds. Her highest weight is 293 pounds. Her body mass index highest is 47.4. She has lost 129 pounds lifetime. PAST MEDICAL HISTORY: 1. Morbid obesity due to excess calories 2. Body mass index of 52.0, initial 3. Hypertensive heart disease. 4. Osteoarthritis of the lower back. 5. Panniculitis 6. Osteoarthritis of the bilateral knees 7. Osteoarthritis of the bilateral hips 8. Plantar fasciitis 9. DVTs during 10. Fibromyalgia 11. Pulmonary embolism PAST SURGICAL HISTORY: 1. 2. Appendectomy 3. Bilateral arthroscopies 4. Pyloric stenosis 5. Robotic gastric bypass 6. Upper endoscopy with dilation HOME MEDICATIONS: Home Medications Medication Instructions Recorded Confirmed HYDROcodone/APAP 7.5-325MG [[place] 1 tab PO TID PRN 12/16/18 01/05/20 7.5-325] Previous Rx's Medication Instructions Recorded Omeprazole 40 mg PO DAILY #90 capsule. 05/06/19 ALLERGIES: Allergies Allergy/AdvReac Type Severity Reaction Status Date / Time NSAIDS (Non-Steroidal AdvReac Rash/Hives/ Verified 01/05/20 17:03 Anti-Inflamma Lethargic/D emaunel SOCIAL HISTORY: No active tobacco abuse FAMILY HISTORY: No family history of ulcerative colitis disease or Crohn's disease. Family history of morbid obesity. No lupus in the family. No reports of stomach or esophageal cancer. REVIEW OF ORGAN SYSTEMS: CONSTITUTIONAL: At height of 5 feet 3 inches, her ideal body weight is 140 pounds. Her highest weight is 293 pounds. Her body mass index highest is 47.4. HEENT: Denies any active troubles with vision or hearing. No troubles with swallowing. ENDOCRINE: No diabetes. No hypothyroidism. CARDIOVASCULAR: No reports of palpitations or heart attacks or chest pain. RESPIRATORY: No dyspnea on exertion. No pneumonia. GI: Denies any bright red blood per rectum. MUSCULOSKELETAL: Has lower back pain and joint pain. No bilateral lower extremity edema. NEURO: No headaches. No seizure disorders. PSYCH: No depression. No suicidal ideation. RHEUMATOLOGIC: No lupus. No rheumatoid arthritis. HEMATOLOGIC: Denies any abnormal bleeding or bruising. No personal history of DVTs. SKIN: Has panniculitis. No skin cancer. PHYSICAL EXAM: VITAL SIGNS: Height 5 foot 3 inches, weight 164 pounds. BMI 30.2 GENERAL: Well-developed in no acute distress. HEENT: No scleral icterus. Extraocular movements grossly intact. Hears conversational speech. No nasal drainage. NECK: Supple without lymphadenopathy. CHEST: Nonlabored respirations with equal bilateral excursions. CARDIOVASCULAR: Regular rate and regular rhythm. Distal 2+ pulses. ABDOMEN: Obese, moderate tenderness right upper quadrant with localized peritonitis. MUSCULOSKELETAL: No clubbing, cyanosis. NEURO: No focal or lateralizing signs. Cranial nerves 2 through 12 grossly within normal limits. PSYCH: Appropriate affect. Alert and oriented to person, place and time. SKIN: Good skin turgor. Well perfused. ASSESSMENT: 1. Acute right upper quadrant abdominal pain, acute cholecystitis 2. Body mass index of 52.0, initial 3. Hypertensive heart disease. 4. Osteoarthritis of the lower back. 5. Panniculitis 6. Osteoarthritis of the bilateral knees 7. Osteoarthritis of the bilateral hips 8. Plantar fasciitis 9. DVTs during 10. Fibromyalgia 11. Pulmonary embolism 12. History of pyloric stenosis 13. Status post gastric bypass, massive weight loss 130 pounds, lifetime PLAN: 1. Patient presents acutely with right upper quadrant abdominal pain as well as fevers and chills for acute cholecystitis. 2. Obtain CBC and comprehensive metabolic panel 3. Nothing by mouth except ice chips and medication 4. Abdominal ultrasound for gallbladder. 5. Antibiotic prophylaxis for cholecystectomy 6. Recommend robotic cholecystectomy for acute cholecystitis 7. Inpatient hospitalization anticipated for more than 2 nights. 8. All questions and concerns were addressed with the patient. Past Medical History Past Medical History: Deep Vein Thrombosis (DVT), Fibromyalgia, Hypertension, Osteoarthritis (OA), Pulmonary Embolus (PE) Additional Past Medical History / Comment(s): Chronic back problems with herniated disc, migraines. Bradycardia History of Any Multi-Drug Resistant Organisms: None Reported Past Surgical History: Appendectomy, Bariatric Surgery, Section, Orthopedic Surgery, Tubal Ligation Additional Past Surgical History / Comment(s): x1, arthroscopic knee sx (3x to RIGHT knee, 2x to LEFT) gastric bypass 01-18-19 Past Anesthesia/Blood Transfusion Reactions: No Reported Reaction Additional Past Anesthesia/Blood Transfusion Reaction / Comment(s): No blood transfusion to date Past Psychological History: No Psychological Hx Reported Smoking Status: Unknown if ever smoked Past Alcohol Use History: None Reported Additional Past Alcohol Use History / Comment(s): SMOKED 1 YEAR TEEN. Past Drug Use History: Marijuana - Past Family History Father Family Medical History: Diabetes Mellitus, Myocardial Infarction ([place]) Additional Family Medical History / Comment(s): Grandmother and grandfather had diabetes. Grandfather had prostate cancer. Mother Family Medical History: No Reported History Medications and Allergies Home Medications Medication Instructions Recorded Confirmed Type HYDROcodone/APAP 7.5-325MG [[place] 1 tab PO TID PRN 12/16/18 01/05/20 History 7.5-325] Omeprazole 40 mg PO DAILY #90 capsule. 05/06/19 01/05/20 Rx Allergies Allergy/AdvReac Type Severity Reaction Status Date / Time NSAIDS (Non-Steroidal AdvReac Rash/Hives/ Verified 01/05/20 17:03 Anti-Inflamma Lethargic/D emanuel Surgical - Exam Vital Signs Temp Pulse Resp BP Pulse Ox 98.8 F 60 16 124/80 99 01/05/20 16:08 01/05/20 16:08 01/05/20 16:08 01/05/20 16:08 01/05/20 16:08 Results - Labs 01/05/20 16:42 01/05/20 16:42 Diabetes panel 01/05/20 Range/Units 16:42 Sodium 140 (137-145) mmol/L Potassium 4.0 (3.5-5.1) mmol/L Chloride 105 (98-107) mmol/L Carbon Dioxide 26 (22-30) mmol/L BUN 9 (7-17) mg/dL Creatinine 0.70 (0.52-1.04) mg/dL Glucose 90 (74-99) mg/dL Calcium 9.2 (8.4-10.2) mg/dL AST 30 (14-36) U/L ALT 23 (4-34) U/L Alkaline Phosphatase 106 (38-126) U/L Total Protein 6.8 (6.3-8.2) g/dL Albumin 4.0 (3.5-5.0) g/dL Calcium panel 01/05/20 Range/Units 16:42 Calcium 9.2 (8.4-10.2) mg/dL Albumin 4.0 (3.5-5.0) g/dL Pituitary panel 01/05/20 Range/Units 16:42 Sodium 140 (137-145) mmol/L Potassium 4.0 (3.5-5.1) mmol/L Chloride 105 (98-107) mmol/L Carbon Dioxide 26 (22-30) mmol/L BUN 9 (7-17) mg/dL Creatinine 0.70 (0.52-1.04) mg/dL Glucose 90 (74-99) mg/dL Calcium 9.2 (8.4-10.2) mg/dL Adrenal panel 01/05/20 Range/Units 16:42 Sodium 140 (137-145) mmol/L Potassium 4.0 (3.5-5.1) mmol/L Chloride 105 (98-107) mmol/L Carbon Dioxide 26 (22-30) mmol/L BUN 9 (7-17) mg/dL Creatinine 0.70 (0.52-1.04) mg/dL Glucose 90 (74-99) mg/dL Calcium 9.2 (8.4-10.2) mg/dL Total Bilirubin 0.7 (0.2-1.3) mg/dL AST 30 (14-36) U/L ALT 23 (4-34) U/L Alkaline Phosphatase 106 (38-126) U/L Total Protein 6.8 (6.3-8.2) g/dL Albumin 4.0 (3.5-5.0) g/dL Assessment and Plan (1) Acute cholecystitis due to biliary calculus Current Visit: Yes Status: Acute Code(s): K80.00 - CALCULUS OF GALLBLADDER W ACUTE CHOLECYST W/O OBSTRUCTION SNOMED Code(s): 79142123082206
[2020-01-06] MEDS ORDERED: IV FLUID CONTINUATION 1,000 ML IV ONE (14:20)
[2020-01-06] MEDS ORDERED: LACTATED RINGERS 1,000 ML IV ONE (14:35)
[2020-01-06] MEDS ORDERED: LIDOCAINE 1% (10MG/ML) FOR IV START INTRADERMA ONE (14:35)
[2020-01-06] MEDS ORDERED: ONDANSETRON 4 MG/2 ML VIAL ONE (14:38)
[2020-01-06] MEDS ORDERED: DEXAMETHASONE SOD PHOSPHATE 10 MG/ML 1 ML VIAL INTRAARTIC ONE (14:42)
[2020-01-06] MEDS ORDERED: ONDANSETRON 4 MG/2 ML VIAL IVP ONE (14:43)
[2020-01-06] MEDS: ENOXAPARIN 30 MG/0.3 ML SYRINGE SQ SCH (15:36)
--- NOTE | 2020-01-06 15:46 | P.HPADDEND ---
H&P Addendum H&P Addendum Date: 01/06/20 Patient seen and evaluated. Benefits and risks of robotic ostectomy described in detail.
[2020-01-06] MEDS ORDERED: INDOCYANINE GREEN 25 MG VIAL IV STA (15:47)
[2020-01-06] MEDS ORDERED: ROCURONIUM BROMIDE 10 MG/ML 5 ML VIAL IV ONE (16:02)
[2020-01-06] MEDS ORDERED: METOPROLOL TARTRATE 5 MG/5 ML VIAL IVP ONE (16:02)
[2020-01-06] MEDS ORDERED: fentaNYL (PF) 50 MCG/ML 2 ML AMP ONE (16:02)
[2020-01-06] MEDS ORDERED: LIDOCAINE 1% INJ 10MG/ML (20 ML MDV) ONE (16:02)
[2020-01-06] MEDS ORDERED: LABETALOL 5 MG/ML VIAL MDV ONE (16:02)
[2020-01-06] MEDS ORDERED: HYDROmorphone (PF) 1 MG/ML ONE (16:02)
[2020-01-06] MEDS ORDERED: NEOSTIGMINE 1 MG/ML 10 ML VIAL ONE (16:02)
[2020-01-06] MEDS ORDERED: MIDAZOLAM 2 MG/2 ML VIAL ONE (16:02)
[2020-01-06] MEDS ORDERED: PROPOFOL 10 MG/ML 20 ML VIAL IV ONE (16:02)
[2020-01-06] MEDS ORDERED: GLYCOPYRROLATE 0.2 MG/ML 2 ML VIAL ONE (16:02)
[2020-01-06] MEDS ORDERED: SUCCINYLCHOLINE CHLORIDE 100 MG/5 ML SYR IV ONE (16:02)
[2020-01-06] MEDS ORDERED: SODIUM CHLORIDE 0.9% 100 ML with ceFAZolin 2,000 MG IV ONE ×2 (16:26)
[2020-01-06] MEDS ORDERED: BUPIVACAIN-EPI 0.25%-1:200,000 30 ML VIAL SQ ONE (16:29)
[2020-01-06] MEDS ORDERED: ACETAMINOPHEN TAB 325 MG TAB PO PRN (17:59)
[2020-01-06] MEDS ORDERED: HYDROmorphone 0.5 MG/0.5 ML SYRINGE IVP ONE (18:00)
[2020-01-06] MEDS ORDERED: ACETAMINOPHEN IV (For NPO) 1,000 MG in EMPTY BAG 1 BAG IVPB ONE (18:30)
--- NOTE | 2020-01-06 19:37 | P.OP ---
Date of Procedure: 01/06/20 Description of Procedure: SURGEON: KAREN LUCAS MD PREOPERATIVE DIAGNOSES: 1. Acute cholecystitis 2. Symptomatic gallstones 3. Obesity due to excess calories, BMI 30.2 4. Status post gastric bypass 5. Chronic pain syndrome POSTOPERATIVE DIAGNOSES: 1. Acute cholecystitis 2. Symptomatic gallstones 3. Obesity due to excess calories, BMI 30.2 4. Status post gastric bypass 5. Chronic pain syndrome OPERATION: Robotic-assisted da Leonel Xi laparoscopic cholecystectomy, multiport with FIREFLY ESTIMATED BLOOD LOSS: 5 mL. SPECIMENS REMOVED: Gallbladder. COMPLICATIONS: None. OPERATIVE FINDINGS: 1. Acute cholecystitis due to cystic duct obstruction INDICATIONS: The patient is a 44-year-old female who presents with acute cholecystitis due to cystic duct obstruction. Surgical intervention with a laparoscopic cholecystectomy was described. Robotic assisted laparoscopic approach was described. Benefits and risks of the procedure including but not limited to bleeding, infection, injury to the biliary tree was described. Informed consent was obtained. DESCRIPTION OF PROCEDURE: Patient was brought to the operating room, placed in supine position. After general induction, the abdomen had been prepped and draped in standard sterile fashion. The robotic da Leonel XI system was primed. After a timeout protocol was performed, the patient had been prepped and draped in standard sterile fashion. The patient was injected with indocyanine green. A 5 mm 0 degrees laparoscopic trocar entry was performed along the left upper quadrant. The abdomen insufflated to 15 mmHg pressure which was tolerated well. Diagnostic laparoscopy demonstrated no injury to bowel viscera or mesentery. The liver surface was unremarkable. Next, two 8 mm robotic ports were placed along the right upper abdomen. The camera 8-mm port was maintained along the epigastrium. Another 8 mm port was placed along the left upper abdominal wall after exchanging the 5 mm port. Please note that the ports were placed at least 10 to 15 cm away from the target anatomy of the gallbladder. The robot was docked along the left lateral abdomen. The patient was repositioned in reverse Trendelenburg position. Using a grasper for arm 3, a grasper for arm 4, including hook cautery for arm 1, the robotic system was docked and primed as described. Instruments were interchanged by the assistant shift supervisor including hook cautery, Bovie cautery and clip appliers. I had sat at the console. The gallbladder fundus was retracted over the dome of the liver. Initial attention was brought to the infundibulum including cystic lymph node. Initial dissection was performed over the cystic lymph node at the infundibulum using hook cautery. The infundibulum was retracted laterally to expose the cystic duct away from the common bile duct. The cystic duct including the cystic artery were dissected free from its surrounding tissue. FIREFLY was used to identify the cystic artery and cystic structures. A critical view of safety was obtained. Large PLASTIC clips were used throughout the entire case. Using a clip sql server developer, 2 clips were placed at the junction of the infundibulum and cystic duct. The cystic duct was divided between clips. Next, the cystic artery was similarly clipped and cauterized. Electro-Bovie cautery was used to remove the gallbladder from the hepatic fossa. Hemostasis was checked and found to be adequate. The robot was undocked. I re-scrubbed into the case. Using a 10 mm Endo Catch bag via the left upper quadrant incision, the specimen was removed from the abdominal cavity. All pneumoperitoneum instruments were evacuated from the abdominal cavity. The incisions were reapproximated using 4-0 Monocryl in an interrupted subcuticular fashion. Fascial defects were less than 8 mm in size. Please note along the trocar sites, local anesthetic was placed as a field block prior to insertion of all instruments. Liquid glue was applied to the skin. At the end of the procedure needle, sponge, and instrument count had been verified correct by the surgical scrub technician. The patient was transferred to postanesthesia care unit in stable condition. Intraoperative films were shared with the patient's family who were pleased with the level of care.
[2020-01-06] MEDS ORDERED: DEXAMETHASONE SOD PHOSPHATE 10 MG/ML 1 ML VIAL IV PRN (19:57)
[2020-01-06 20:04] VITALS: RESP 16
[2020-01-06] MEDS ORDERED: LORazepam 2 MG/ML INJ IV PRN (20:12)
[2020-01-06] MEDS ORDERED: SCOPOLAMINE 1.5MG/72HR PATCH TRANSDERM SCH (20:30)
[2020-01-07] MEDS: PIPERACILLIN-TAZOBACTAM 3.375 GM in SODIUM CHLORIDE 0.9% 100 ML IVPB SCH ×2 (00:37→09:25)
[2020-01-07] MEDS: KETOROLAC 30 MG/ML 1 ML VIAL IVP SCH ×2 (00:37→05:53)
[2020-01-07 03:07] VITALS: PULSE 44
[2020-01-07 08:50] VITALS: BP 117/72; TEMP 97.5
[2020-01-07] MEDS: SODIUM CHLORIDE 0.9% 1,000 ML IV SCH (09:26)
[2020-01-07] MEDS: PANTOPRAZOLE 40 MG/10 ML VIAL IV SCH (09:26)
--- NOTE | 2020-01-07 10:13 | P.DS ---
Providers Date of admission: 01/05/20 15:53 Expected date of discharge: 01/07/20 Attending physician: Kareen Delacruz Primary care physician: Taylor Snyder Hospital Course: 44-year-old female who underwent robotic-assisted laparoscopic cholecystectomy with Dr. Wu on 01/06/2020. Patient is doing well postoperatively without any immediate complications. She is tolerating diet. Pain controlled on oral medications. Vital signs are stable. She is stable for discharge home today. Please see EMR for further hospital course details. Discharge Diagnosis 1. Acute cholecystitis 2. Symptomatic gallstones 3. Obesity due to excess calories, BMI 30.2 4. Status post gastric bypass 5. Chronic pain syndrome Nurse practitioner note has been reviewed by physician. Signing provider agrees with the documented findings, assessment, and plan of care. Plan - Discharge Summary New Discharge Prescriptions: New Acetaminophen Tab [Tylenol Tab] 1,000 mg PO Q6HR PRN #30 tablet PRN Reason: Pain Continue HYDROcodone/APAP 7.5-325MG [[place] 7.5-325] 1 tab PO TID PRN PRN Reason: Pain Omeprazole 40 mg PO DAILY #90 capsule. Discharge Medication List HYDROcodone/APAP 7.5-325MG [[place] 7.5-325] 1 tab PO TID PRN 12/16/18 [History] Omeprazole 40 mg PO DAILY #90 capsule. 05/06/19 [Rx] Acetaminophen Tab [Tylenol Tab] 1,000 mg PO Q6HR PRN #30 tablet 01/06/20 [Rx] [facility]Ref[facility] [place] [facility] [place] [facility] Patient Instructions/Handouts: *Surgery [facility] - Scopalamine Patch Instructions, Laparoscopic Cholecystectomy (DC) Activity/Diet/Wound Care/Special Instructions: Take home pain medications. No lifting over 10 pounds in 2 weeks until Jan 19. October shower. No bath tub soaks for two weeks until Jan 19. Diet as tolerated. No driving while on narcotics. Use Tylenol scheduled for the next 24-48 hours for best pain relief. Use ice along incisions for the today to prevent swelling. Discharge Disposition: HOME SELF-CARE
[2020-01-07] MEDS ORDERED: DEXAMETHASONE SOD PHOSPHATE 10 MG/ML 1 ML VIAL IV STA (10:16)
[2020-01-07] MEDS: ENOXAPARIN 30 MG/0.3 ML SYRINGE SQ SCH (10:25)
== END 2020-01-07 11:00 | disposition home or self-care (01) ==
LOC: 4SSUR 15:53 → INTOOBSV 15:53 → UNDODISIN 01-07 11:00
PROVIDERS: ADMIT Surgery Plastic and Reconstructive Surgery; ATTEND Surgery Plastic and Reconstructive Surgery
DX: K81.0 Acute cholecystitis (principal); K82.0 Obstruction of gallbladder; K82.8 Other specified diseases of gallbladder; E66.01 Morbid (severe) obesity due to excess calories; G89.4 Chronic pain syndrome; R19.7 Diarrhea, unspecified; R11.0 Nausea; I11.9 Hypertensive heart disease without heart failure; M47.896 Other spondylosis, lumbar region; M79.3 Panniculitis, unspecified; M17.0 Bilateral primary osteoarthritis of knee; M16.0 Bilateral primary osteoarthritis of hip; M72.2 Plantar fascial fibromatosis; M79.7 Fibromyalgia; M51.9 Unspecified thoracic, thoracolumbar and lumbosacral intervertebral disc disorder; K08.409 Partial loss of teeth, unspecified cause, unspecified class; Z68.30 Body mass index [BMI] 30.0-30.9, adult; Z98.84 Bariatric surgery status; Z86.718 Personal history of other venous thrombosis and embolism; Z86.711 Personal history of pulmonary embolism; Z98.890 Other specified postprocedural states; Z90.49 Acquired absence of other specified parts of digestive tract; Z87.19 Personal history of other diseases of the digestive system; Z79.891 Long term (current) use of opiate analgesic; Z88.6 Allergy status to analgesic agent; Z86.69 Personal history of other diseases of the nervous system and sense organs; Z98.51 Tubal ligation status; Z87.891 Personal history of nicotine dependence; K21.9 Gastro-esophageal reflux disease without esophagitis; Z79.01 Long term (current) use of anticoagulants; Z79.1 Long term (current) use of non-steroidal anti-inflammatories (NSAID); Z79.899 Other long term (current) drug therapy; Z83.49 Family history of other endocrine, nutritional and metabolic diseases; Z83.3 Family history of diabetes mellitus; Z82.49 Family history of ischemic heart disease and other diseases of the circulatory system; Z80.42 Family history of malignant neoplasm of prostate
CPT/HCPCS: 47562; S2900; 76705; 80053; 81025; 85025; 87635; 88304; 93005; 96374; 96375; 96376; 99211

== ENCOUNTER → 2020-01-05 | Outpatient (CLI) | payer OTHER ==
[2020-01-05 15:05] VITALS: BP 127/83; PULSE 60; RESP 16; TEMP 98.3; BMI 29.2
--- NOTE | 2020-01-05 15:42 | P.PN ---
Subjective Progress Note Date: 01/05/20 CHIEF COMPLAINT: Acute cholecystitis HISTORY OF PRESENT ILLNESS: Estefania Lynch is a 44-year-old female who comes in acutely with right upper quadrant abdominal pain including fevers and chills for the last 2-3 days. She reports eating a salad, banana and yogurt yesterday and has severe right upper quadrant to right upper flank pain. She also reports diarrhea and gas pain for 1 week. She reports nausea. No previous episodes. She presented to the bariatric center with acute abdominal pain 10 out of 10. A result of her presentation and concern for acute cholecystitis with history of fevers and chills, admission for acute cholecystitis described. At height of 5 feet 3 inches, her ideal body weight is 140 pounds. She comes in 164 pounds from 267 pounds. Her highest weight is 293 pounds. Her body mass index highest is 47.4. She has lost 129 pounds lifetime. PAST MEDICAL HISTORY: 1. Morbid obesity due to excess calories 2. Body mass index of 52.0, initial 3. Hypertensive heart disease. 4. Osteoarthritis of the lower back. 5. Panniculitis 6. Osteoarthritis of the bilateral knees 7. Osteoarthritis of the bilateral hips 8. Plantar fasciitis 9. DVTs during 10. Fibromyalgia 11. Pulmonary embolism PAST SURGICAL HISTORY: 1. 2. Appendectomy 3. Bilateral arthroscopies 4. Pyloric stenosis 5. Robotic gastric bypass 6. Upper endoscopy with dilation HOME MEDICATIONS: Home Medications Medication Instructions Recorded Confirmed HYDROcodone/APAP 7.5-325MG [[place] 1 tab PO TID PRN 12/16/18 01/05/20 7.5-325] Previous Rx's Medication Instructions Recorded Omeprazole 40 mg PO DAILY #90 capsule. 05/06/19 ALLERGIES: Allergies Allergy/AdvReac Type Severity Reaction Status Date / Time NSAIDS (Non-Steroidal AdvReac Rash/Hives/ Verified 01/05/20 17:03 Anti-Inflamma Lethargic/D emanuel SOCIAL HISTORY: No active tobacco abuse FAMILY HISTORY: No family history of ulcerative colitis disease or Crohn's disease. Family history of morbid obesity. No lupus in the family. No reports of stomach or esophageal cancer. REVIEW OF ORGAN SYSTEMS: CONSTITUTIONAL: At height of 5 feet 3 inches, her ideal body weight is 140 pounds. Her highest weight is 293 pounds. Her body mass index highest is 47.4. HEENT: Denies any active troubles with vision or hearing. No troubles with swallowing. ENDOCRINE: No diabetes. No hypothyroidism. CARDIOVASCULAR: No reports of palpitations or heart attacks or chest pain. RESPIRATORY: No dyspnea on exertion. No pneumonia. GI: Denies any bright red blood per rectum. MUSCULOSKELETAL: Has lower back pain and joint pain. No bilateral lower extremity edema. NEURO: No headaches. No seizure disorders. PSYCH: No depression. No suicidal ideation. RHEUMATOLOGIC: No lupus. No rheumatoid arthritis. HEMATOLOGIC: Denies any abnormal bleeding or bruising. No personal history of DVTs. SKIN: Has panniculitis. No skin cancer. PHYSICAL EXAM: VITAL SIGNS: Height 5 foot 3 inches, weight 164 pounds. BMI 30.2 Vital Signs Temp 98.3 F 01/05/20 15:02 Pulse 60 01/05/20 15:02 Resp 16 01/05/20 15:02 BP 127/83 01/05/20 15:02 Pulse Ox GENERAL: Well-developed in no acute distress. HEENT: No scleral icterus. Extraocular movements grossly intact. Hears conversational speech. No nasal drainage. NECK: Supple without lymphadenopathy. CHEST: Nonlabored respirations with equal bilateral excursions. CARDIOVASCULAR: Regular rate and regular rhythm. Distal 2+ pulses. ABDOMEN: Obese, moderate tenderness right upper quadrant with localized peritonitis. MUSCULOSKELETAL: No clubbing, cyanosis. NEURO: No focal or lateralizing signs. Cranial nerves 2 through 12 grossly within normal limits. PSYCH: Appropriate affect. Alert and oriented to person, place and time. SKIN: Good skin turgor. Well perfused. ASSESSMENT: 1. Acute right upper quadrant abdominal pain, acute cholecystitis 2. Body mass index of 52.0, initial 3. Hypertensive heart disease. 4. Osteoarthritis of the lower back. 5. Panniculitis 6. Osteoarthritis of the bilateral knees 7. Osteoarthritis of the bilateral hips 8. Plantar fasciitis 9. DVTs during 10. Fibromyalgia 11. Pulmonary embolism 12. History of pyloric stenosis 13. Status post gastric bypass, massive weight loss 130 pounds, lifetime PLAN: 1. Patient presents acutely with right upper quadrant abdominal pain as well as fevers and chills for acute cholecystitis. 2. Obtain CBC and comprehensive metabolic panel 3. Nothing by mouth except ice chips and medication 4. Abdominal ultrasound for gallbladder. 5. Antibiotic prophylaxis for cholecystectomy 6. Recommend robotic cholecystectomy for acute cholecystitis 7. Inpatient hospitalization anticipated for more than 2 nights. 8. All questions and concerns were addressed with the patient. Objective - Vital Signs Vital signs: Vital Signs Temp 98.3 F 01/05/20 15:02 Pulse 60 01/05/20 15:02 Resp 16 01/05/20 15:02 BP 127/83 01/05/20 15:02 Pulse Ox Intake & Output 01/04/20 01/05/20 01/05/20 18:59 06:59 18:59 Weight 74.843 kg
== END | disposition home or self-care (01) ==
LOC: BARWHC3 14:45
PROVIDERS: ATTEND Surgery Plastic and Reconstructive Surgery
DX: R10.11 Right upper quadrant pain (principal); R19.7 Diarrhea, unspecified; R50.9 Fever, unspecified
CPT/HCPCS: 99211

== ENCOUNTER → 2020-05-03 | Outpatient (CLI) | payer OTHER ==
[2020-05-03 12:56] VITALS: BP 117/66; PULSE 62; RESP 16; TEMP 98.3; BMI 27.3
--- NOTE | 2020-05-03 13:44 | P.PN ---
Subjective Progress Note Date: 05/03/20 DATE OF SERVICE: 05/03/2020 CHIEF COMPLAINT: Panniculitis HISTORY OF PRESENT ILLNESS: Estefania Lynch is a 44-year-old female is status post gastric bypass 01/18/2019. She is over one year out. Similarly, she reports over 1+ year history of severe panniculitis despite treatment. She has maintained over 100+ pound weight loss for over 1 year. She denies abdominal pain. She is still using nystatin powder. She has worked with the director of clinical trials without improvement of her symptoms. She has tried nystatin, dermarest, hydrocortisone, apexicon, and topical certacort without improvement of symptoms. She is seeking panniculectomy for correction of functional deficits including limitations of her activities of daily living as well as chronic infections and lower back pain. At height of 5 feet 3 inches, her ideal body weight is 140 pounds. Her highest weight is 293 pounds. Her body mass index highest is 52.0. She comes in 154 pounds from 159 pounds, 2 months ago. She has lost 5 pounds in 2 months. Weight loss is stable. Lifetime weight loss of 139 pounds. Lifetime percent excess weight loss of 91%. PAST MEDICAL HISTORY: 1. Morbid obesity due to excess calories 2. Body mass index of 52.0, initial 3. Hypertensive heart disease. 4. Osteoarthritis of the lower back. 5. Panniculitis 6. Osteoarthritis of the bilateral knees 7. Osteoarthritis of the bilateral hips 8. Plantar fasciitis 9. DVTs during 10. Fibromyalgia 11. Pulmonary embolism PAST SURGICAL HISTORY: 1. 2. Appendectomy 3. Bilateral arthroscopies 4. Pyloric stenosis 5. Status post gastric bypass 6. Cholecystectomy HOME MEDICATIONS: ALLERGIES: Home Medications Medication Instructions Recorded Confirmed HYDROcodone/APAP 7.5-325MG [[place] 1 tab PO TID PRN 12/16/18 05/04/20 7.5-325] Calcium Citrate 1,500 mg PO DAILY 03/13/20 05/04/20 Ergocalciferol [Vitamin D2 50,000 unit PO WEEKLY 03/13/20 05/04/20 (DRISDOL)] Vitamin A 10,000 unit PO DAILY 03/13/20 05/04/20 Previous Rx's Medication Instructions Recorded Omeprazole 40 mg PO DAILY #90 capsule. 05/06/19 Acetaminophen Tab [Tylenol Tab] 1,000 mg PO Q6HR PRN #30 tablet 01/06/20 SOCIAL HISTORY: No tobacco use. FAMILY HISTORY: No family history of ulcerative colitis disease or Crohn's disease. Family history of morbid obesity. No lupus in the family. No reports of stomach or esophageal cancer. REVIEW OF ORGAN SYSTEMS: CONSTITUTIONAL: At height of 5 feet 3 inches, her ideal body weight is 140 pounds. Her highest weight is 293 pounds. Her body mass index highest is 52.0. HEENT: Denies any active troubles with vision or hearing. No troubles with swallowing. ENDOCRINE: No diabetes. No hypothyroidism. CARDIOVASCULAR: No reports of palpitations or heart attacks or chest pain. RESPIRATORY: No dyspnea on exertion. No pneumonia. GI: Denies any bright red blood per rectum. No diarrhea. MUSCULOSKELETAL: Has lower back pain and joint pain. No bilateral lower extremity edema. NEURO: No headaches. No seizure disorders. PSYCH: No depression. No suicidal ideation. RHEUMATOLOGIC: No lupus. No rheumatoid arthritis. HEMATOLOGIC: Denies any abnormal bleeding or bruising. No personal history of DVTs. SKIN: Has panniculitis. No skin cancer. PHYSICAL EXAM: VITAL SIGNS: Height 5 foot 3 inches, weight 154 pounds. BMI 27.3 Vital Signs Temp 98.3 F 05/03/20 12:53 Pulse 62 05/03/20 12:53 Resp 16 05/03/20 12:53 BP 117/66 05/03/20 12:53 Pulse Ox GENERAL: Well-developed in no acute distress. HEENT: No scleral icterus. Extraocular movements grossly intact. Hears conversational speech. No nasal drainage. NECK: Supple without lymphadenopathy. CHEST: Nonlabored respirations with equal bilateral excursions. CARDIOVASCULAR: Regular rate and regular rhythm. Distal 2+ pulses. ABDOMEN: Obese, soft. Moderate hyperemia of the pannus. Has multiple skin rolls. Pannus over pubis at least 8 cm. Weight of pannus over 15 pounds. MUSCULOSKELETAL: No clubbing, cyanosis. Gross strength 5/5 distal lower extremities. NEURO: No focal or lateralizing signs. Cranial nerves 2 through 12 grossly within normal limits. PSYCH: Appropriate affect. Alert and oriented to person, place and time. SKIN: Good skin turgor. Well perfused. ASSESSMENT: 1. Morbid obesity due to excess calories 2. Body mass index of 52.0 to 27.3 3. Hypertensive heart disease. 4. Osteoarthritis of the lower back. 5. Panniculitis, moderate to severe 6. Osteoarthritis of the bilateral knees 7. Osteoarthritis of the bilateral hips 8. Plantar fasciitis 9. DVTs during 10. Fibromyalgia 11. Pulmonary embolism, past history 12. History of pyloric stenosis 13. Status post gastric bypass. 14. Gastrojejunal stricture, resolved 15. Thiamine deficiency, corrected 16. Vitamin D deficiency 17. Bradycardia 18. Vitamin A deficiency 19. Secondary hyperparathyroidism PLAN: 1. Recommend panniculectomy to restore her global function including activities of daily living and correction of chronic panniculitis. 2. Postoperative management including limited lifting and wearing compression garments were reviewed. 3. Risks of bleeding, needs for drains, flap failure, infection, need for further surgery were described. She is high risk for yulia-operative complications with anticipated 15+ pound skin resection. 4. Inpatient hospitalization also described 5. DVT prophylaxis. 6 Antibiotic prophylaxis 7. Will need correction of all vitamin deficiencies prior to panniculectomy. 8. Extended recovery more than 6-8 weeks described including placement of drains more than 2 weeks reviewed. 9. Non-opiate pain management also reviewed the perioperative period. 10. Recommend 2 week high-protein low-carb diet to improve protein stores and postoperative recovery. Objective - Vital Signs Vital signs: Vital Signs Temp 98.3 F 05/03/20 12:53 Pulse 62 05/03/20 12:53 Resp 16 05/03/20 12:53 BP 117/66 05/03/20 12:53 Pulse Ox Intake & Output 05/02/20 05/03/20 05/03/20 18:59 06:59 18:59 Weight 69.853 kg
== END | disposition home or self-care (01) ==
LOC: BARWHC3 12:36
PROVIDERS: ATTEND Surgery Plastic and Reconstructive Surgery
DX: Z48.815 Encounter for surgical aftercare following surgery on the digestive system (principal); E66.01 Morbid (severe) obesity due to excess calories; I11.9 Hypertensive heart disease without heart failure; M19.90 Unspecified osteoarthritis, unspecified site; M79.3 Panniculitis, unspecified; M17.0 Bilateral primary osteoarthritis of knee; M16.0 Bilateral primary osteoarthritis of hip; M72.2 Plantar fascial fibromatosis; M79.7 Fibromyalgia; Z86.711 Personal history of pulmonary embolism; Z87.19 Personal history of other diseases of the digestive system; E55.9 Vitamin D deficiency, unspecified; R00.1 Bradycardia, unspecified; E50.9 Vitamin A deficiency, unspecified; E21.1 Secondary hyperparathyroidism, not elsewhere classified; Z68.43 Body mass index [BMI] 50.0-59.9, adult; Z83.49 Family history of other endocrine, nutritional and metabolic diseases; Z98.84 Bariatric surgery status; Z79.891 Long term (current) use of opiate analgesic; Z79.1 Long term (current) use of non-steroidal anti-inflammatories (NSAID); Z79.899 Other long term (current) drug therapy
CPT/HCPCS: 99211

== ENCOUNTER → 2020-07-12 | Outpatient (CLI) | payer OTHER ==
[2020-07-12 13:25] VITALS: BP 116/74; PULSE 64; RESP 18; TEMP 98.2; BMI 26.5
--- NOTE | 2020-07-12 14:24 | P.PN ---
Subjective Progress Note Date: 07/12/20 DATE OF SERVICE: 07/12/2020 CHIEF COMPLAINT: Panniculitis HISTORY OF PRESENT ILLNESS: Estefania Lynch is a 45-year-old female is status post gastric bypass 01/18/2019. She is over 1 year out. She comes in with moderate sized pannus including recurrent panniculitis despite topical prescriptions. She reports moderate lower back pain including activities of daily living compromised from her pannus. Her symptoms have been present over 3 years. She has pulling sensation along her lower back from her pannus. She has troubles with grooming and hygiene as a result of her pannus. Her pannus interferes with her activities of daily living including dressing, bathing, and hygiene. She presents for panniculectomy. At height of 5 feet 3 inches, her ideal body weight is 140 pounds. Her highest weight is 293 pounds. Her body mass index highest is 52.0. She comes in 150 pounds from 154 pounds, 2 months ago. She has lost 4 pounds in 2 months. Lifetime weight loss of 143 pounds. Lifetime percent excess weight loss of 94%. PAST MEDICAL HISTORY: 1. Morbid obesity due to excess calories 2. Body mass index of 52.0, initial 3. Hypertensive heart disease. 4. Osteoarthritis of the lower back. 5. Panniculitis 6. Osteoarthritis of the bilateral knees 7. Osteoarthritis of the bilateral hips 8. Plantar fasciitis 9. DVTs during 10. Fibromyalgia 11. Pulmonary embolism PAST SURGICAL HISTORY: 1. 2. Appendectomy 3. Bilateral arthroscopies 4. Pyloric stenosis 5. Status post gastric bypass 6. Cholecystectomy HOME MEDICATIONS: ALLERGIES: Home Medications Medication Instructions Recorded Confirmed HYDROcodone/APAP 7.5-325MG [[place] 1 tab PO TID PRN 12/16/18 05/04/20 7.5-325] Calcium Citrate 1,500 mg PO DAILY 03/13/20 05/04/20 Ergocalciferol [Vitamin D2 50,000 unit PO WEEKLY 03/13/20 05/04/20 (DRISDOL)] Vitamin A 10,000 unit PO DAILY 03/13/20 05/04/20 Previous Rx's Medication Instructions Recorded Omeprazole 40 mg PO DAILY #90 capsule. 05/06/19 Acetaminophen Tab [Tylenol Tab] 1,000 mg PO Q6HR PRN #30 tablet 01/06/20 SOCIAL HISTORY: No tobacco use. FAMILY HISTORY: No family history of ulcerative colitis disease or Crohn's disease. Family history of morbid obesity. No lupus in the family. No reports of stomach or esophageal cancer. REVIEW OF ORGAN SYSTEMS: CONSTITUTIONAL: At height of 5 feet 3 inches, her ideal body weight is 140 pounds. Her highest weight is 293 pounds. Her body mass index highest is 52.0. HEENT: Denies any active troubles with vision or hearing. No troubles with swallowing. ENDOCRINE: No diabetes. No hypothyroidism. CARDIOVASCULAR: No reports of palpitations or heart attacks or chest pain. RESPIRATORY: No dyspnea on exertion. No pneumonia. GI: Denies any bright red blood per rectum. No diarrhea. MUSCULOSKELETAL: Has lower back pain and joint pain. No bilateral lower extremity edema. NEURO: No headaches. No seizure disorders. PSYCH: No depression. No suicidal ideation. RHEUMATOLOGIC: No lupus. No rheumatoid arthritis. HEMATOLOGIC: Denies any abnormal bleeding or bruising. No personal history of DVTs. SKIN: Has panniculitis. No skin cancer. PHYSICAL EXAM: VITAL SIGNS: Height 5 foot 3 inches, weight 150 pounds. BMI 26.6 Vital Signs Temp 98.2 F 07/12/20 13:21 Pulse 64 07/12/20 13:21 Resp 18 07/12/20 13:21 BP 116/74 07/12/20 13:21 Pulse Ox GENERAL: Well-developed in no acute distress. HEENT: No scleral icterus. Extraocular movements grossly intact. Hears conversational speech. No nasal drainage. NECK: Supple without lymphadenopathy. CHEST: Nonlabored respirations with equal bilateral excursions. CARDIOVASCULAR: Regular rate and regular rhythm. Distal 2+ pulses. ABDOMEN: Obese, soft. Grade 4 panniculosis. Weight of pannus over 20 pounds. MUSCULOSKELETAL: No clubbing, cyanosis. NEURO: No focal or lateralizing signs. Cranial nerves 2 through 12 grossly within normal limits. PSYCH: Appropriate affect. Alert and oriented to person, place and time. SKIN: Good skin turgor. Well perfused. ASSESSMENT: 1. Morbid obesity due to excess calories 2. Body mass index of 52.0 to 26.6 3. Hypertensive heart disease. 4. Osteoarthritis of the lower back. 5. Panniculitis, moderate to severe 6. Osteoarthritis of the bilateral knees 7. Osteoarthritis of the bilateral hips 8. Plantar fasciitis 9. DVTs during 10. Fibromyalgia 11. Pulmonary embolism, past history 12. History of pyloric stenosis 13. Status post gastric bypass. 14. Gastrojejunal stricture, resolved 15. Thiamine deficiency, corrected 16. Vitamin D deficiency 17. Bradycardia 18. Vitamin A deficiency 19. Secondary hyperparathyroidism PLAN: 1. Recommend panniculectomy to correct her panniculitis and restore her activities of daily living. 2. Risks of bleeding, needs for drains, flap failure, infection, need for further surgery were described. Drain management over 2 to 3 weeks described. 3. DVT prophylaxis. 4 Antibiotic prophylaxis 5. Recommend 2 week high-protein low-carb diet to improve protein stores and postoperative recovery. 6. She is elevated risk for complications with over 10+ pound pannus resection anticipated. Objective - Vital Signs Vital signs: Vital Signs Temp 98.2 F 07/12/20 13:21 Pulse 64 07/12/20 13:21 Resp 18 07/12/20 13:21 BP 116/74 07/12/20 13:21 Pulse Ox Intake & Output 07/11/20 07/12/20 07/12/20 18:59 06:59 18:59 Weight 68.039 kg
== END | disposition home or self-care (01) ==
LOC: BARWHC3 12:58
PROVIDERS: ATTEND Surgery Plastic and Reconstructive Surgery
DX: E66.01 Morbid (severe) obesity due to excess calories (principal); I11.9 Hypertensive heart disease without heart failure; M47.816 Spondylosis without myelopathy or radiculopathy, lumbar region; M79.3 Panniculitis, unspecified; M17.0 Bilateral primary osteoarthritis of knee; M16.0 Bilateral primary osteoarthritis of hip; M72.2 Plantar fascial fibromatosis; M79.7 Fibromyalgia; E55.9 Vitamin D deficiency, unspecified; R00.1 Bradycardia, unspecified; E50.9 Vitamin A deficiency, unspecified; E21.1 Secondary hyperparathyroidism, not elsewhere classified; Z86.2 Personal history of diseases of the blood and blood-forming organs and certain disorders involving the immune mechanism; Z87.19 Personal history of other diseases of the digestive system; Z79.899 Other long term (current) drug therapy; Z90.49 Acquired absence of other specified parts of digestive tract; Z98.890 Other specified postprocedural states; Z68.43 Body mass index [BMI] 50.0-59.9, adult; Z98.84 Bariatric surgery status; Z86.718 Personal history of other venous thrombosis and embolism; Z86.711 Personal history of pulmonary embolism
CPT/HCPCS: 99211

== ENCOUNTER → 2020-07-21 | Outpatient (CLI) | payer OTHER ==
[2020-07-21 13:20] LABS: HCT 43.6 % (34.0-46.0); HGB 15.1 gm/dL (11.4-16.0); MCH 30.2 pg (25.0-35.0); MCHC 34.7 g/dL (31.0-37.0); MCV 87.1 fL (80.0-100.0); Mean Platelet Volume 6.8; Platelet Count 253 k/uL (150-450); RBC 5.01 m/uL (3.80-5.40); RDW 13.1 % (11.5-15.5); WBC 5.4 k/uL (3.8-10.6)
[2020-07-21 13:31] LABS: ALT 27 U/L (4-34); AST 33 U/L (14-36); African American GFR (CKD) >90 (>60 ml/min/1.73 sqM); Albumin 4.5 g/dL (3.5-5.0); Alkaline Phosphatase 100 U/L (38-126); Anion Gap 7 mmol/L; Blood Urea Nitrogen 14 mg/dL (7-17); Carbon Dioxide 28 mmol/L (22-30); Chloride 105 mmol/L (98-107); Glucose 91 mg/dL (74-99); Non-African American GFR(CKD) >90 (>60 ml/min/1.73 sqM); Potassium 4.3 mmol/L (3.5-5.1); Sodium 140 mmol/L (137-145); Total Protein 7.5 g/dL (6.3-8.2)
== END | disposition home or self-care (01) ==
LOC: LABPAT 10:59
PROVIDERS: ATTEND Surgery Plastic and Reconstructive Surgery
DX: Z01.818 Encounter for other preprocedural examination (principal)
CPT/HCPCS: 80053; 85027

== ENCOUNTER → 2020-07-26 | Outpatient (CLI) | payer OTHER | END | disposition home or self-care (01) | LOC: LABPAT 15:51 | PROVIDERS: ATTEND Surgery Plastic and Reconstructive Surgery | DX: Z01.818 Encounter for other preprocedural examination (principal) | CPT/HCPCS: 93005 ==

== ENCOUNTER → 2020-07-26 | Outpatient (CLI) | payer OTHER ==
--- NOTE | 2020-07-26 15:33 | P.PN ---
Subjective Progress Note Date: 07/26/20 DATE OF SERVICE: 07/26/2020 CHIEF COMPLAINT: Abdominal pain HISTORY OF PRESENT ILLNESS: Estefania Lynch is a 45-year-old female is status post gastric bypass 01/18/2019. She is over 1 year out. She comes in with new epigastric abdominal pain. No reports or nausea at present. Her pain was achy and intermittent in nature of mild to moderate intensity going on for over 1 week. At height of 5 feet 3 inches, her ideal body weight is 140 pounds. Her highest weight is 293 pounds. Her body mass index highest is 52.0. She comes in 149 pounds from 150 pounds, 2 weeks ago. She has lost 1 pounds in 2 weeks. Lifetime weight loss of 144 pounds. Lifetime percent excess weight loss of 94%. PHYSICAL EXAM: VITAL SIGNS: Height 5 foot 3 inches, weight 149 pounds. BMI 26.4 Vital Signs Temp 98.1 F 07/26/20 15:42 Pulse 59 L 07/26/20 15:42 Resp BP 109/76 07/26/20 15:42 Pulse Ox GENERAL: Well-developed in no acute distress. HEENT: No scleral icterus. Extraocular movements grossly intact. Hears conversational speech. No nasal drainage. NECK: Supple without lymphadenopathy. CHEST: Nonlabored respirations with equal bilateral excursions. CARDIOVASCULAR: Regular rate and regular rhythm. Distal 2+ pulses. ABDOMEN: Obese, soft. Grade 4 panniculosis. Non-tender. No peritonitis. MUSCULOSKELETAL: No clubbing, cyanosis. NEURO: No focal or lateralizing signs. Cranial nerves 2 through 12 grossly within normal limits. PSYCH: Appropriate affect. Alert and oriented to person, place and time. SKIN: Good skin turgor. Well perfused. ASSESSMENT: 1. Morbid obesity due to excess calories 2. Body mass index of 52.0 to 26.4 3. Hypertensive heart disease. 4. Osteoarthritis of the lower back. 5. Panniculitis, moderate to severe 6. Osteoarthritis of the bilateral knees 7. Osteoarthritis of the bilateral hips 8. Plantar fasciitis 9. DVTs during 10. Fibromyalgia 11. Pulmonary embolism, past history 12. History of pyloric stenosis 13. Status post gastric bypass. 14. Gastrojejunal stricture, resolved 15. Thiamine deficiency, corrected 16. Vitamin D deficiency 17. Bradycardia 18. Vitamin A deficiency 19. Secondary hyperparathyroidism 20. Epigastric abdominal pain PLAN: 1. On assessment, her abdominal pain has resolved. 2. She has symptomatic pannus for which panniculectomy is described. Benefits and risks were reviewed.
[2020-07-26 15:44] VITALS: BP 109/76; PULSE 59; TEMP 98.1; BMI 26.4
== END | disposition home or self-care (01) ==
LOC: BARWHC3 14:39
PROVIDERS: ATTEND Surgery Plastic and Reconstructive Surgery
DX: E66.01 Morbid (severe) obesity due to excess calories (principal); M47.816 Spondylosis without myelopathy or radiculopathy, lumbar region; M17.0 Bilateral primary osteoarthritis of knee; M16.0 Bilateral primary osteoarthritis of hip; M72.2 Plantar fascial fibromatosis; M79.7 Fibromyalgia; E55.9 Vitamin D deficiency, unspecified; E21.1 Secondary hyperparathyroidism, not elsewhere classified; R10.13 Epigastric pain; R00.1 Bradycardia, unspecified; E50.9 Vitamin A deficiency, unspecified; M79.3 Panniculitis, unspecified; I11.9 Hypertensive heart disease without heart failure; Z98.84 Bariatric surgery status; Z68.43 Body mass index [BMI] 50.0-59.9, adult; Z86.79 Personal history of other diseases of the circulatory system; Z87.19 Personal history of other diseases of the digestive system; Z86.39 Personal history of other endocrine, nutritional and metabolic disease
CPT/HCPCS: 93005; 99211

== ENCOUNTER 2020-07-31 07:30 | Inpatient (IN) | payer OTHER ==
[2020-07-26 15:19] VITALS: BMI 26.4
--- NOTE | 2020-07-31 05:21 | P.GSHP ---
History of Present Illness H&P Date: 07/31/20 CHIEF COMPLAINT: Panniculitis HISTORY OF PRESENT ILLNESS: Estefania Lynch is a 45-year-old female is status post gastric bypass 01/18/2019. She is over 1 year out. She comes in with moderate sized pannus including recurrent panniculitis despite topical prescriptions. She reports moderate lower back pain including activities of daily living compromised from her pannus. Her pannus interferes with her activities of daily living including dressing, bathing, and hygiene. She presents for panniculectomy. At height of 5 feet 3 inches, her ideal body weight is 140 pounds. Her highest weight is 293 pounds. Her body mass index highest is 52.0. She comes in 150 pounds from 154 pounds, 2 months ago. She has lost 4 pounds in 2 months. Lifetime weight loss of 143 pounds. Lifetime percent excess weight loss of 94%. PAST MEDICAL HISTORY: 1. Morbid obesity due to excess calories 2. Body mass index of 52.0, initial 3. Hypertensive heart disease. 4. Osteoarthritis of the lower back. 5. Panniculitis 6. Osteoarthritis of the bilateral knees 7. Osteoarthritis of the bilateral hips 8. Plantar fasciitis 9. DVTs during 10. Fibromyalgia 11. Pulmonary embolism PAST SURGICAL HISTORY: 1. 2. Appendectomy 3. Bilateral arthroscopies 4. Pyloric stenosis 5. Status post gastric bypass 6. Cholecystectomy HOME MEDICATIONS: ALLERGIES: SOCIAL HISTORY: No tobacco use. FAMILY HISTORY: No family history of ulcerative colitis disease or Crohn's disease. Family history of morbid obesity. No lupus in the family. No reports of stomach or esophageal cancer. REVIEW OF ORGAN SYSTEMS: CONSTITUTIONAL: At height of 5 feet 3 inches, her ideal body weight is 140 p ounds. Her highest weight is 293 pounds. Her body mass index highest is 52.0. HEENT: Denies any active troubles with vision or hearing. No troubles with swallowing. ENDOCRINE: No diabetes. No hypothyroidism. CARDIOVASCULAR: No reports of palpitations or heart attacks or chest pain. RESPIRATORY: No dyspnea on exertion. No pneumonia. GI: Denies any bright red blood per rectum. No diarrhea. MUSCULOSKELETAL: Has lower back pain and joint pain. No bilateral lower extremity edema. NEURO: No headaches. No seizure disorders. PSYCH: No depression. No suicidal ideation. RHEUMATOLOGIC: No lupus. No rheumatoid arthritis. HEMATOLOGIC: Denies any abnormal bleeding or bruising. No personal history of DVTs. SKIN: Has panniculitis. No skin cancer. PHYSICAL EXAM: VITAL SIGNS: Height 5 foot 3 inches, weight 150 pounds. BMI 26.6 GENERAL: Well-developed in no acute distress. HEENT: No scleral icterus. Extraocular movements grossly intact. Hears conversational speech. No nasal drainage. NECK: Supple without lymphadenopathy. CHEST: Nonlabored respirations with equal bilateral excursions. CARDIOVASCULAR: Regular rate and regular rhythm. Distal 2+ pulses. ABDOMEN: Obese, soft. Grade 4 panniculosis. Weight of pannus over 20 pounds. MUSCULOSKELETAL: No clubbing, cyanosis. NEURO: No focal or lateralizing signs. Cranial nerves 2 through 12 grossly within normal limits. PSYCH: Appropriate affect. Alert and oriented to person, place and time. SKIN: Good skin turgor. Well perfused. ASSESSMENT: 1. Morbid obesity due to excess calories 2. Body mass index of 52.0 to 26.6 3. Hypertensive heart disease. 4. Osteoarthritis of the lower back. 5. Panniculitis, moderate to severe 6. Osteoarthritis of the bilateral knees 7. Osteoarthritis of the bilateral hips 8. Plantar fasciitis 9. DVTs during 10. Fibromyalgia 11. Pulmonary embolism, past history 12. History of pyloric stenosis 13. Status post gastric bypass. 14. Gastrojejunal stricture, resolved 15. Thiamine deficiency, corrected 16. Vitamin D deficiency 17. Bradycardia 18. Vitamin A deficiency 19. Secondary hyperparathyroidism PLAN: 1. Panniculectomy is described to correct her panniculitis and restore her activities of daily living. 2. Risks of bleeding, needs for drains, flap failure, infection, need for further surgery were described. Drain management over 2 to 3 weeks described. 3. DVT prophylaxis. 4 Antibiotic prophylaxis 5. She is elevated risk for complications with over 10+ pound pannus resection anticipated. Past Medical History Past Medical History: Deep Vein Thrombosis (DVT), Fibromyalgia, Hypertension, Osteoarthritis (OA), Pulmonary Embolus (PE) Additional Past Medical History / Comment(s): HERNIATED DISC WITH CHRONIC BACK PAIN. , HYPERTENSION & DVT & PE WHILE ., BRADYCARDIA, GASTRIC BYPASS 01/2019. History of Any Multi-Drug Resistant Organisms: None Reported Past Surgical History: Appendectomy, Bariatric Surgery, Section, Orthopedic Surgery, Tubal Ligation Additional Past Surgical History / Comment(s): x1, arthroscopic knee sx (3x to RIGHT knee, 2x to LEFT) gastric bypass 01-18-19 Past Anesthesia/Blood Transfusion Reactions: Previous Problems w/ Anesthesia, Postoperative Nausea & Vomiting (PONV) Additional Past Anesthesia/Blood Transfusion Reaction / Comment(s): STATES SHE USUALLY GETS A PATCH TO PREVENT NAUSEA Past Psychological History: No Psychological Hx Reported Smoking Status: Never smoker Past Alcohol Use History: None Reported Additional Past Alcohol Use History / Comment(s): SMOKED 1 YEAR TEEN. Past Drug Use History: Marijuana Additional Drug Use History / Comment(s): OCCASIONAL MARIJUANA - Past Family History Father Family Medical History: Diabetes Mellitus, Myocardial Infarction ([place]) Additional Family Medical History / Comment(s): Grandmother and grandfather had diabetes. Grandfather had prostate cancer. Mother Family Medical History: No Reported History Medications and Allergies Home Medications Medication Instructions Recorded Confirmed Type HYDROcodone/APAP 7.5-325MG [[place] 1 tab PO TID PRN 12/16/18 07/26/20 History 7.5-325] Allergies Allergy/AdvReac Type Severity Reaction Status Date / Time NSAIDS (Non-Steroidal AdvReac Rash/Hives/ Verified 07/26/20 14:53 Anti-Inflamma Lethargic/D emanuel
[~2020-07-31 07:30] MED LIST changes: +ACETAMINOPHEN TAB 500 MG TAB PO STA; -DEXAMETHASONE SOD PHOSPHATE 10 MG/ML 1 ML VIAL IV ONE; +DEXAMETHASONE SOD PHOSPHATE 4 MG/ML 1 ML VIAL IV ONE; +GABAPENTIN 300 MG CAP PO STA; -LACTATED RINGERS 1,000 ML IV SCH; -LIDOCAINE 1% 20 ML VIAL (10MG/ML) FOR IV START INTRADERMA PRN; +MIDAZOLAM 2 MG/2 ML VIAL IV PRN; +SCOPOLAMINE 1.5MG/72HR PATCH TRANSDERM ONE; +SCOPOLAMINE 1.5MG/72HR PATCH TRANSDERM STA
[2020-07-31] MEDS: LACTATED RINGERS 1,000 ML IV SCH (11:42)
[2020-07-31 11:52] LABS: Basophils % (A) 0 %; Eosinophils # (A) 0.1 k/uL (0-0.7); Eosinophils % (A) 2 %; HCT 40.6 % (34.0-46.0); HGB 13.9 gm/dL (11.4-16.0); Lymphocytes # (A) 2.7 k/uL (1.0-4.8); Lymphocytes % (A) 54 %; MCH 29.9 pg (25.0-35.0); MCHC 34.3 g/dL (31.0-37.0); MCV 87.3 fL (80.0-100.0); Mean Platelet Volume 6.8; Monocytes # (A) 0.2 k/uL (0-1.0); Monocytes % (A) 5 %; Neutrophils # (A) 1.8 k/uL (1.3-7.7); Neutrophils % (A) 37 %; Platelet Count 230 k/uL (150-450); RBC 4.65 m/uL (3.80-5.40); RDW 13.1 % (11.5-15.5); WBC 4.9 k/uL (3.8-10.6)
[2020-07-31] MEDS ORDERED: MIDAZOLAM 2 MG/2 ML VIAL IV ONE (11:59)
[2020-07-31] MEDS ORDERED: fentaNYL (PF) 50 MCG/ML 2 ML AMP IV ONE (11:59)
--- NOTE | 2020-07-31 12:11 | P.ANPRN ---
Procedure Note - Anesthesia - Nerve Block Performed Bilateral Rectus Abdominis Single Time Out Performed: Yes ([id number]) Date of Procedure: 07/31/20 Procedure Start Time: 11:59 Procedure Stop Time: 12:09 Location of Patient: PreOp Indication: Acute Post-Operative Pain, Analgesia, Requested by Surgeon Specifically requested for management of pain by DrNicolasa: Kareen Delacruz Sedation Type: Sedate with meaningful contact maintained Preparation: Sterile Prep Position: Supine Needle Types: Pajunk Needle Gauge: 20 Ultrasound used to visualize needle placement: Yes Ultrasound used to observe medication spread: Yes Injectate: 0.5% Ropivacaine (see comment for volume) (15 mL each side of ropivacaine 0.5%) Blood Aspirated: No Pain Paresthesia on Injection Noted: No Resistance on Injection: Normal Image Stored and Saved: Yes Events: Uneventful and Well Tolerated
[2020-07-31] MEDS ORDERED: HEPARIN SODIUM,PORCINE 5,000 UNIT/ML 1 ML VIAL ONE (12:28)
[2020-07-31] MEDS ORDERED: HEPARIN SODIUM,PORCINE 5,000 UNIT/ML 1 ML VIAL SQ ONE (12:30)
[2020-07-31] MEDS ORDERED: ROPIVACAINE 5 MG/ML 30 ML VIAL ONE (12:52)
[2020-07-31] MEDS ORDERED: MIDAZOLAM 2 MG/2 ML VIAL ONE (12:52)
[2020-07-31] MEDS ORDERED: HYDROmorphone (PF) 1 MG/ML ONE (12:52)
[2020-07-31] MEDS ORDERED: SUCCINYLCHOLINE CHLORIDE 100 MG/5 ML SYR IV ONE (12:52)
[2020-07-31] MEDS ORDERED: fentaNYL (PF) 50 MCG/ML 2 ML AMP ONE (12:52)
[2020-07-31] MEDS ORDERED: PROPOFOL 10 MG/ML 20 ML VIAL IV ONE (12:52)
[2020-07-31] MEDS ORDERED: ePHEDrine SULFATE/0.9% NACL/PF 50 MG/5 ML SYRINGE IV ONE (12:52)
[2020-07-31] MEDS ORDERED: LIDOCAINE 1% INJ 10MG/ML (20 ML MDV) ONE (12:52)
[2020-07-31] MEDS ORDERED: LACTATED RINGERS 1,000 ML IV ONE ×2 (14:16→16:02)
[2020-07-31] MEDS ORDERED: TRIMETHOBENZAMIDE 100 MG/ML 2 ML VIAL IM PRN (16:31)
[2020-07-31] MEDS ORDERED: NALOXONE 0.4 MG/ML 1 ML VIAL IV PRN (16:31)
[2020-07-31] MEDS ORDERED: ONDANSETRON 4 MG/2 ML VIAL IVP PRN (16:31)
[2020-07-31] MEDS ORDERED: HYDROmorphone 1 MG/ML 1 ML SYRINGE IVP PRN (16:31)
[2020-07-31] MEDS ORDERED: HYDROcodone/APAP 7.5-325MG 1 EACH TAB PO PRN (16:37)
--- NOTE | 2020-07-31 16:41 | P.OP ---
Date of Procedure: 07/31/20 Description of Procedure: SURGEON: KAREN LUCAS MD PREOPERATIVE DIAGNOSES: 1. Panniculitis, moderate to severe 2. Body mass index of 52.0 to 26.6 3. Hypertensive heart disease. 4. Osteoarthritis of the lower back. 5. Central adiposity 6. Osteoarthritis of the bilateral knees 7. Osteoarthritis of the bilateral hips 8. Plantar fasciitis 9. DVTs during 10. Fibromyalgia 11. Pulmonary embolism, past history 12. History of pyloric stenosis 13. Status post gastric bypass. 14. Gastrojejunal stricture, resolved 15. Thiamine deficiency, corrected 16. Vitamin D deficiency 17. Bradycardia 18. Vitamin A deficiency 19. Secondary hyperparathyroidism 20. Status post massive weight loss, 143 pounds. POSTOPERATIVE DIAGNOSES: 1. Panniculitis, moderate to severe 2. Body mass index of 52.0 to 26.6 3. Hypertensive heart disease. 4. Osteoarthritis of the lower back. 5. Central adiposity 6. Osteoarthritis of the bilateral knees 7. Osteoarthritis of the bilateral hips 8. Plantar fasciitis 9. DVTs during 10. Fibromyalgia 11. Pulmonary embolism, past history 12. History of pyloric stenosis 13. Status post gastric bypass. 14. Gastrojejunal stricture, resolved 15. Thiamine deficiency, corrected 16. Vitamin D deficiency 17. Bradycardia 18. Vitamin A deficiency 19. Secondary hyperparathyroidism 20. Status post massive weight loss, 143 pounds. OPERATION: 1. Panniculectomy, 9.10 pounds. ANESTHESIA: General ESTIMATED BLOOD LOSS: 350 mL SPECIMENS REMOVED: Pannus 9.10 pounds. COMPLICATIONS: None. CONDITION: Stable. DRAINS: Two #19 Perez drains below abdominal flap extending through the pubis. OPERATIVE FINDINGS: 1. Pannus weighing 9.10 pounds, excised. INDICATIONS: Estefania Lynch is a 45-year-old female is status post gastric bypass 01/18/2019. She is over 1 year out. She comes in with moderate sized pannus including recurrent panniculitis despite topical prescriptions. She reports moderate lower back pain including activities of daily living compromised from her pannus. Her pannus interferes with her activities of daily living including dressing, bathing, and hygiene. She presents for panniculectomy. At height of 5 feet 3 inches, her ideal body weight is 140 pounds. Her highest weight is 293 pounds. Her body mass index highest is 52.0. She comes in 150 pounds from 154 pounds, 2 months ago. She has lost 4 pounds in 2 months. Lifetime weight loss of 143 pounds. Lifetime percent excess weight loss of 94%. Despite medical therapy with prescription powders, she has developed severe medical refractory panniculitis. Given her clinical symptoms, including massive weight loss, she elected for surgical intervention with a panniculectomy. Benefits and risks of the procedure including bleeding, infection, risk of flap failure, abdominal wall seromas, chronic pain were described at length. Informed consent was obtained. DESCRIPTION: In the preanesthesia care unit the patient was marked with an indelible marker. She had also been given heparin subcutaneously. The patient was brought into the operating room and laid in supine position. After general induction, a Vale catheter was placed. The abdomen was then prepped and draped in standard sterile fashion using ChloraPrep. The skin was prepped as far laterally to the back, inferiorly to the upper thighs and superiorly to above the bilateral breasts. A timeout protocol was confirmed with the surgical team regarding patient's name, procedure to be performed, including preoperative medications. She had received Ancef 2 grams IV antibiotics. Once the time-out protocol was confirmed with the surgical team, the patient was re-marked with indelible marker whereby the midline of the xiphoid to the mons pubis was marked. The anterior/superior iliac spine along the bilateral hips was also marked. Approximately 7 cm above the pubis commissure a transverse incision was made for the inferior portion of the flap. Using a #10 blade, the incision was taken from the midline laterally to above the anterior/superior iliac spine, initially on the left side of the patient and then on the right side of the patient. The umbilicus was transected. Electro-Bovie cautery was used to control for hemostasis. The dissection was taken down to the level of the fascia. Landmarks used were the xiphoid process as well as the bilateral costal margins for the superior margin. Care was taken to avoid any creation of dog ears during the dissection. Hemostasis was once again checked with electro-Bovie cautery and all defects were addressed. Attention was now brought to closure of the flap. Using stainless steel skin idris, the midline was once again marked of the upper flap as well as the pubic commissure. The patient was placed in a flexed position of approximately 20 degrees at the hips. The pannus was extended inferiorly to the feet. The upper flap was created once the excess skin was excised. Again care was taken to avoid any dog ears along the lateral aspect of the incisions. Once excised, the pannus was weighed at 9.10 pounds. The upper and lower flaps were reapproximated at the midline and then laterally to the skin with skin idris. Once reapproximated, the skin was closed in layers using 0 Vicryl for the superficial fascial system followed by running 3-0 Monocryl for the deep dermis in a running subcuticular fashion. Prior to skin closure, two round #19 Perez drains were placed underneath the flap and brought out just inferior to the incision along the pubis. Drain stitch using 2-0 nylon was placed. Once the incision was closed, bulb suction was attached. Hemostasis was checked. At the end of the procedure, the needle, sponge and instrument count was verified correct. Exofin tape was placed along the length of the incision. Optifoam dressings were applied over the incision and used as a drain sponge. The patient was then transferred to a hospital bed in a beach chair position. An abdominal binder was placed and marked. The patient was taken to the postanesthesia care unit in stable condition, awake and extubated.
[2020-07-31] MEDS ORDERED: ACETAMINOPHEN IV (For NPO) 1,000 MG/100 ML VIAL IVPB ONE (16:48)
[2020-07-31] MEDS: HYDROmorphone 0.5 MG/0.5 ML SYRINGE IVP PRN ×3 (17:10→18:07)
[2020-07-31] MEDS ORDERED: ONDANSETRON 4 MG/2 ML VIAL IVP ONE ×2 (18:20)
[2020-07-31] MEDS ORDERED: diphenhydrAMINE 50 MG/ML 1 ML VIAL IVP ONE (18:38)
[2020-07-31] MEDS ORDERED: SODIUM CHLORIDE 0.9% 1,000 ML IV ONE (18:42)
[2020-07-31] MEDS: KETOROLAC 15 MG/ML 1 ML VIAL IVP SCH (20:36)
[2020-07-31] MEDS: ACETAMINOPHEN TAB 500 MG TAB PO SCH (20:36)
[2020-08-01] MEDS: 0.9% NACL WITH KCL 20 MEQ/L 1,000 ML IV SCH ×2 (00:40→07:08)
[2020-08-01] MEDS: KETOROLAC 15 MG/ML 1 ML VIAL IVP SCH ×3 (01:17→12:55)
[2020-08-01] MEDS: ACETAMINOPHEN TAB 500 MG TAB PO SCH ×3 (01:17→12:54)
[2020-08-01 06:40] VITALS: BP 95/61
[2020-08-01] MEDS: LACTATED RINGERS 1,000 ML IV SCH (07:08)
[2020-08-01] MEDS ORDERED: 0.9% NACL WITH KCL 20 MEQ/L 1,000 ML IV SCH (08:00)
[2020-08-01] MEDS ORDERED: PANTOPRAZOLE 40 MG/10 ML VIAL IV SCH (09:00)
[2020-08-01] MEDS ORDERED: ENOXAPARIN 30 MG/0.3 ML SYRINGE SQ SCH (09:00)
[2020-08-01 12:03] LABS: Basophils # (A) 0.02 X 10*3/uL (0.00-0.10); Basophils % (A) 0.3 %; Eosinophils # (A) 0.08 X 10*3/uL (0.04-0.35); Eosinophils % (A) 1.1 %; HCT 32.8 % (37.2-46.3); HGB 11.1 g/dL (12.0-15.0); Lymphocytes # (A) 2.32 X 10*3/uL (0.90-5.00); Lymphocytes % (A) 33.2 %; MCH 30.2 pg (27.0-32.0); MCHC 33.8 g/dL (32.0-37.0); MCV 89.1 fL (80.0-97.0); Monocytes # (A) 0.53 X 10*3/uL (0.20-1.00); Monocytes % (A) 7.6 %; Neutrophils # (A) 4.02 X 10*3/uL (1.80-7.70); Neutrophils % (A) 57.7 %; Platelet Count 190 X 10*3/uL (140-440); RBC 3.68 X 10*6/uL (4.10-5.20); RDW 13.1 % (11.5-14.5); WBC 6.98 X 10*3/uL (4.50-10.00)
[2020-08-01 14:04] VITALS: PULSE 56; RESP 18; TEMP 98.1
--- NOTE | 2020-08-01 15:29 | P.DS ---
Providers Date of admission: 07/31/20 10:54 Expected date of discharge: 08/01/20 Attending physician: Kareen Delacruz Consults: 07/31/20 05:17 Consult Physician Routine Consulting Provider: [facility] Consult Reason/Comments: Abdominal wall block Do you want consulting provider notified?: Yes Primary care physician: Taylor Snyder [facility] Course: Discharge diagnosis 1. Panniculitis, moderate to severe status post panniculectomy 2. Body mass index of 52.0 to 26.6 3. Hypertensive heart disease. 4. Osteoarthritis of the lower back. 5. Central adiposity 6. Osteoarthritis of the bilateral knees 7. Osteoarthritis of the bilateral hips 8. Plantar fasciitis 9. DVTs during 10. Fibromyalgia 11. Pulmonary embolism, past history 12. History of pyloric stenosis 13. Status post gastric bypass. 14. Gastrojejunal stricture, resolved 15. Thiamine deficiency, corrected 16. Vitamin D deficiency 17. Bradycardia 18. Vitamin A deficiency 19. Secondary hyperparathyroidism 20. Status post massive weight loss, 143 pounds. Hospital course Estefania Lynch is a 45-year-old female is status post gastric bypass 01/18/2019. She is over 1 year out. She comes in with moderate sized pannus including recurrent panniculitis despite topical prescriptions. She reports moderate lower back pain including activities of daily living compromised from her pannus. Her pannus interferes with her activities of daily living including dressing, bathing, and hygiene. She presents for panniculectomy. Patient is status post panniculectomy. She tolerated surgery well. Her pain is controlled. She is tolerating diet. She is ambulating without difficulty. She is passing gas. She denies any difficulty with urinating. She is afebrile. She is stable for discharge. Physician Fur Trimmer note has been reviewed by physician. Signing provider agrees with the documented findings, assessment, and plan of care. Patient Condition at Discharge: Stable Plan - Discharge Summary Discharge Rx Participant: Yes New Discharge Prescriptions: New Acetaminophen Tab [Tylenol Tab] 1,000 mg PO Q6HR PRN #30 tablet PRN Reason: pain No Action HYDROcodone/APAP 7.5-325MG [[place] 7.5-325] 1 tab PO TID PRN PRN Reason: Pain Discharge Medication List HYDROcodone/APAP 7.5-325MG [[place] 7.5-325] 1 tab PO TID PRN 12/16/18 [History] Acetaminophen Tab [Tylenol Tab] 1,000 mg PO Q6HR PRN #30 tablet 08/01/20 [Rx] Follow [facility]Ref[place] [facility] [place] [place] [facility] - 08/04/20 9:00 am Patient Instructions/Handouts: [facility] Drain Care (DC), Panniculectomy (GEN) Activity/Diet/Wound Care/Special Instructions: No lifting over 4 pounds in 4 weeks, August 28 No bathtub soaks. No shower. No stretching or twisting. Sleep in a recliner. DO NOT REMOVE DRESSINGS. DO NOT REMOVE BINDER. Keep record of LIDIA outputs daily. Discharge Disposition: HOME SELF-CARE
[2020-08-02] MEDS ORDERED: bisacodyL 5 MG TABLET.DR PO PRN (08:00)
[2020-08-02] MEDS ORDERED: PANTOPRAZOLE 40 MG TABLET PO SCH (09:00)
== END 2020-08-01 17:10 | disposition home or self-care (01) | DRG 571 ==
LOC: 2ORMAIN 10:54 → 4SSUR 17:54
PROVIDERS: ADMIT Surgery Plastic and Reconstructive Surgery; ATTEND Surgery Plastic and Reconstructive Surgery
PROC: 0JB80ZZ Excision of Abdomen Subcutaneous Tissue and Fascia, Open Approach (ICD-10-PCS; principal; 2020-07-31 13:20)
DX: M79.3 Panniculitis, unspecified (principal); N25.81 Secondary hyperparathyroidism of renal origin; E51.9 Thiamine deficiency, unspecified; Z68.43 Body mass index [BMI] 50.0-59.9, adult; M16.0 Bilateral primary osteoarthritis of hip; M79.7 Fibromyalgia; M17.0 Bilateral primary osteoarthritis of knee; E50.9 Vitamin A deficiency, unspecified; M72.2 Plantar fascial fibromatosis; M47.9 Spondylosis, unspecified; I11.9 Hypertensive heart disease without heart failure; E55.9 Vitamin D deficiency, unspecified; E66.01 Morbid (severe) obesity due to excess calories; Z98.84 Bariatric surgery status; Z86.711 Personal history of pulmonary embolism; Z83.3 Family history of diabetes mellitus; Z82.49 Family history of ischemic heart disease and other diseases of the circulatory system; Z88.6 Allergy status to analgesic agent
CPT/HCPCS: 64488; 85025; 86850; 86900; 86901

== ENCOUNTER → 2020-08-04 | Outpatient (CLI) | payer OTHER ==
--- NOTE | 2020-08-04 09:31 | P.PN ---
Subjective Progress Note Date: 08/04/20 DATE OF SERVICE: 08/04/2020 CHIEF COMPLAINT: Status post panniculectomy HISTORY OF PRESENT ILLNESS: Estefania Lynch is a 45-year-old female is status post gastric bypass 01/18/2019. She is now status post panniculectomy, 07/31/20. She is POD 4. She is happy with her cosmetic result. No signs of infe ction. Her pain is well-controlled. Her LIDIA outputs are barely 25 mL daily. At height of 5 feet 3 inches, her ideal body weight is 140 pounds. Her highest weight is 293 pounds. Her body mass index highest is 52.0. She comes in 144 pounds from 149 pounds, 2 weeks ago. She has lost 5 pounds in 2 weeks. Lifetime weight loss of 149 pounds. Lifetime percent excess weight loss of 98%. PHYSICAL EXAM: VITAL SIGNS: Height 5 foot 3 inches, weight 144 pounds. BMI 25.5 Vital Signs Temp 98.1 F 08/04/20 09:52 Pulse 57 L 08/04/20 09:52 Resp BP 107/61 08/04/20 09:52 Pulse Ox GENERAL: Well-developed in no acute distress. HEENT: No scleral icterus. Extraocular movements grossly intact. Hears conversational speech. No nasal drainage. NECK: Supple without lymphadenopathy. CHEST: Nonlabored respirations with equal bilateral excursions. CARDIOVASCULAR: Regular rate and regular rhythm. Distal 2+ pulses. ABDOMEN: Mild excoriations along the hip flexures noted. All dressings intact without shadowing or drainage. Her LIDIA outputs are serosanguinous. Abdominal binder present and re-positioned. MUSCULOSKELETAL: No clubbing, cyanosis. No signs of infection. NEURO: No focal or lateralizing signs. Cranial nerves 2 through 12 grossly within normal limits. PSYCH: Appropriate affect. Alert and oriented to person, place and time. SKIN: Good skin turgor. Well perfused. ASSESSMENT: 1. Morbid obesity due to excess calories 2. Body mass index of 52.0 to 25.5 3. Hypertensive heart disease. 4. Osteoarthritis of the lower back. 5. Panniculitis, moderate to severe 6. Osteoarthritis of the bilateral knees 7. Osteoarthritis of the bilateral hips 8. Plantar fasciitis 9. DVTs during 10. Fibromyalgia 11. Pulmonary embolism, past history 12. History of pyloric stenosis 13. Status post gastric bypass. 14. Gastrojejunal stricture, resolved 15. Thiamine deficiency, corrected 16. Vitamin D deficiency 17. Bradycardia 18. Vitamin A deficiency 19. Secondary hyperparathyroidism 20. Status post panniculectomy PLAN: 1. Follow-up in 5 days with discontinuation of external dressings. 2. LIDIA drain care reviewed.
[2020-08-04 09:56] VITALS: BP 107/61; PULSE 57; TEMP 98.1; BMI 25.4
== END | disposition home or self-care (01) ==
LOC: BARWHC3 08:43
PROVIDERS: ATTEND Surgery Plastic and Reconstructive Surgery
DX: E66.01 Morbid (severe) obesity due to excess calories (principal); Z72.0 Tobacco use; Z68.43 Body mass index [BMI] 50.0-59.9, adult; I11.9 Hypertensive heart disease without heart failure; M16.0 Bilateral primary osteoarthritis of hip; M79.3 Panniculitis, unspecified; M17.0 Bilateral primary osteoarthritis of knee; M72.2 Plantar fascial fibromatosis; M79.7 Fibromyalgia; E55.9 Vitamin D deficiency, unspecified; R00.1 Bradycardia, unspecified; N25.81 Secondary hyperparathyroidism of renal origin
CPT/HCPCS: 99212

== ENCOUNTER → 2020-08-09 | Outpatient (CLI) | payer OTHER ==
[2020-08-09 13:27] VITALS: BP 113/72; PULSE 75; RESP 18; TEMP 98.3; BMI 25.0
--- NOTE | 2020-08-09 14:11 | P.PN ---
Subjective Progress Note Date: 08/09/20 DATE OF SERVICE: 08/09/2020 CHIEF COMPLAINT: Status post panniculectomy HISTORY OF PRESENT ILLNESS: Estefania Lynch is a 45-year-old female is status post gastric bypass 01/18/2019. She is now status post panniculectomy 9.10 pounds, 07/31/20. She is 1 week out. She reports her pain is controlled. JPs are less than 10 to 20 ml/day. All serous. Her protein intake is increased. At height of 5 feet 3 inches, her ideal body weight is 140 pounds. Her highest weight is 293 pounds. Her body mass index highest is 52.0. She comes in 141 pounds from 144 pounds, 1 week ago. She has lost 3 pounds in 1 week. Lifetime weight loss of 152 pounds. Lifetime percent excess weight loss of 100%. PHYSICAL EXAM: VITAL SIGNS: Height 5 foot 3 inches, weight 144 pounds. BMI 25.5 Vital Signs Temp 98.3 F 08/09/20 13:21 Pulse 75 08/09/20 13:21 Resp 18 08/09/20 13:21 BP 113/72 08/09/20 13:21 Pulse Ox GENERAL: Well-developed in no acute distress. HEENT: No scleral icterus. Extraocular movements grossly intact. Hears conversational speech. No nasal drainage. NECK: Supple without lymphadenopathy. CHEST: Nonlabored respirations with equal bilateral excursions. CARDIOVASCULAR: Regular rate and regular rhythm. Distal 2+ pulses. ABDOMEN: Incisions are clean dry and intact. External dressing tape removed. No signs of infection. JPs are serous. Incisional care with chloraprep performed along LIDIA sites and incisions. MUSCULOSKELETAL: No clubbing, cyanosis. No signs of infection. NEURO: No focal or lateralizing signs. Cranial nerves 2 through 12 grossly within normal limits. PSYCH: Appropriate affect. Alert and oriented to person, place and time. SKIN: Good skin turgor. Well perfused. ASSESSMENT: 1. Morbid obesity due to excess calories 2. Body mass index of 52.0 to 25.5 3. Hypertensive heart disease. 4. Osteoarthritis of the lower back. 5. Panniculitis, moderate to severe 6. Osteoarthritis of the bilateral knees 7. Osteoarthritis of the bilateral hips 8. Plantar fasciitis 9. DVTs during 10. Fibromyalgia 11. Pulmonary embolism, past history 12. History of pyloric stenosis 13. Status post gastric bypass. 14. Gastrojejunal stricture, resolved 15. Thiamine deficiency, corrected 16. Vitamin D deficiency 17. Bradycardia 18. Vitamin A deficiency 19. Secondary hyperparathyroidism 20. Status post panniculectomy PLAN: 1. Plan for follow up next week for wound care. 2. External dressing removed of Optifoam tape. 3. Plan for LIDIA removal next week pending low LIDIA outputs. Objective - Vital Signs Vital signs: Vital Signs Temp 98.3 F 08/09/20 13:21 Pulse 75 08/09/20 13:21 Resp 18 08/09/20 13:21 BP 113/72 08/09/20 13:21 Pulse Ox Intake & Output 08/08/20 08/09/20 08/09/20 18:59 06:59 18:59 Weight 63.957 kg
== END | disposition home or self-care (01) ==
LOC: BARWHC3 12:50
PROVIDERS: ATTEND Surgery Plastic and Reconstructive Surgery
DX: E66.01 Morbid (severe) obesity due to excess calories (principal); I11.9 Hypertensive heart disease without heart failure; M17.0 Bilateral primary osteoarthritis of knee; M47.9 Spondylosis, unspecified; M79.3 Panniculitis, unspecified; M16.0 Bilateral primary osteoarthritis of hip; M72.2 Plantar fascial fibromatosis; M79.7 Fibromyalgia; E55.9 Vitamin D deficiency, unspecified; E51.9 Thiamine deficiency, unspecified; E50.9 Vitamin A deficiency, unspecified; N25.81 Secondary hyperparathyroidism of renal origin; Z68.25 Body mass index [BMI] 25.0-25.9, adult; Z86.711 Personal history of pulmonary embolism; Z98.890 Other specified postprocedural states; Z98.84 Bariatric surgery status
CPT/HCPCS: 99212

== ENCOUNTER → 2020-08-16 | Outpatient (CLI) | payer OTHER ==
[2020-08-16 13:53] VITALS: BP 112/76; PULSE 82; RESP 18; TEMP 98.4; BMI 24.6
--- NOTE | 2020-08-16 14:30 | P.PN ---
Subjective Progress Note Date: 08/16/20 LIDIA drains are removed. No infection. Follow up 1 week. Binder re-adjusted. Objective - Vital Signs Vital signs: Vital Signs Temp 98.4 F 08/16/20 13:49 Pulse 82 08/16/20 13:49 Resp 18 08/16/20 13:49 BP 112/76 08/16/20 13:49 Pulse Ox Intake & Output 08/15/20 08/16/20 08/16/20 18:59 06:59 18:59 Weight 63.049 kg
== END ==
LOC: BARWHC3 13:00
PROVIDERS: ATTEND Surgery Plastic and Reconstructive Surgery
DX: E66.01 Morbid (severe) obesity due to excess calories (principal); I10 Essential (primary) hypertension; Z46.51 Encounter for fitting and adjustment of gastric lap band; Z98.84 Bariatric surgery status
CPT/HCPCS: 99212

== ENCOUNTER → 2020-08-23 | Outpatient (CLI) | payer OTHER ==
[2020-08-23 14:59] VITALS: BP 116/76; PULSE 58; RESP 18; TEMP 99.5; BMI 24.7
--- NOTE | 2020-08-23 15:42 | P.PN ---
Subjective Progress Note Date: 08/23/20 She has seroma. Plan for abdominal binder. Needs US of abdomen. She has nausea. Scopolamine patch Objective - Vital Signs Vital signs: Vital Signs Temp 99.5 F 08/23/20 14:52 Pulse 58 L 08/23/20 14:52 Resp 18 08/23/20 14:52 BP 116/76 08/23/20 14:52 Pulse Ox Intake & Output 08/22/20 08/23/20 08/23/20 18:59 06:59 18:59 Weight 63.367 kg
== END | disposition home or self-care (01) ==
LOC: BARWHC3 14:22
PROVIDERS: ATTEND Surgery Plastic and Reconstructive Surgery
DX: E66.01 Morbid (severe) obesity due to excess calories (principal); I10 Essential (primary) hypertension
CPT/HCPCS: 99212

== ENCOUNTER 2020-08-25 12:54 | Day surgery (SDC) | payer OTHER ==
--- NOTE | 2020-08-25 14:21 | US ---
Ultrasound-guided aspiration of seroma EXAMINATION TYPE: US guided soft tissue drainage DATE OF EXAM: 08/25/2020 HISTORY: Seroma FINDINGS: Maximal barrier technique was utilized. The skin overlying a suitable path to the fluid wa s localized with ultrasound and the overlying skin prepped and draped. Lidocaine was used for local anesthesia. A skin iftikhar made with a scalpel. Access was gained under direct ultrasound guidance to the fluid with a one-step system. Ultrasound was utilized using sterile technique. 70 cc serous flui d returned. Catheter was removed without incident from skin. Hemostasis achieved. No immediate com plication and the patient remained in stable condition. IMPRESSION: STATUS POST ULTRASOUND GUIDED SEROMA DRAINAGE, THIS PROCEDURE WAS PERFORMED BY THE UNDERS IGNED.
[2020-08-25 14:24] VITALS: BP 102/65; PULSE 49; RESP 16; TEMP 98
== END 2020-08-25 14:05 | disposition home or self-care (01) ==
LOC: RADPROMAIN 12:54
PROVIDERS: ATTEND Surgery Plastic and Reconstructive Surgery
DX: L76.34 Postprocedural seroma of skin and subcutaneous tissue following other procedure (principal)
CPT/HCPCS: 10030; 76942

== ENCOUNTER → 2020-09-06 | Outpatient (CLI) | payer OTHER ==
--- NOTE | 2020-09-06 15:10 | P.PN ---
Subjective Progress Note Date: 09/06/20 She is losing more weight. She is happy with her skin. Continue with binder for 1 month. Objective - Vital Signs Vital signs: Intake & Output 09/05/20 09/06/20 09/06/20 18:59 06:59 18:59 Weight 62.596 kg
[2020-09-06 15:12] VITALS: BP 101/70; PULSE 75; RESP 18; TEMP 98.3; BMI 24.4
== END ==
LOC: BARWHC3 14:24
PROVIDERS: ATTEND Surgery Plastic and Reconstructive Surgery
DX: E66.01 Morbid (severe) obesity due to excess calories (principal)
CPT/HCPCS: 99212

== ENCOUNTER 2020-10-16 16:02 | Emergency (ER) | payer OTHER ==
[2020-10-16] MEDS ORDERED: SODIUM CHLORIDE 0.9% 1,000 ML IV STA (17:13)
[2020-10-16] MEDS ORDERED: ONDANSETRON 4 MG/2 ML VIAL IVP STA (17:13)
[2020-10-16] MEDS ORDERED: MORPHINE SULFATE 4 MG/ML SYRINGE IV STA (17:13)
[2020-10-16] MEDS ORDERED: diphenhydrAMINE 50 MG/ML 1 ML VIAL IVP STA (17:13)
--- NOTE | 2020-10-16 17:16 | ED ---
Abdominal Pain HPI - General Chief Complaint: Abdominal Pain Stated Complaint: Abd pain, unable to eat Time Seen by Provider: 10/16/20 17:09 Source: patient, RN notes reviewed Mode of arrival: ambulatory Limitations: no limitations - History of Present Illness Initial Comments: Patient is a 45-year-old female that presents to emergency department compla ining of generalized abdominal pain with decreased appetite over the last 5 days. She'll that she's been nauseous and vomiting for approximately a week to week and a half. She notes that she did try Dr. Dr. Delacruz but wasn't able to get in for several weeks with Dr. Meeks toilenichelle come in today to ER to get evaluated. She did not appear to be in any distress or pain while sitting up in bed in exam interview. She did note that she does have a history of an appendectomy cholecystectomy bariatric surgery and tummy tuck. She denied any chest pain shortness of breath headache diarrhea constipation fever fatigue chills. - Related Data Home Medications Medication Instructions Recorded Confirmed HYDROcodone/APAP 7.5-325MG [[place] 1 tab PO TID PRN 12/16/18 10/16/20 7.5-325] Previous Rx's Medication Instructions Recorded Nitrofurantoin Monohyd/M-Cryst 100 mg PO Q12HR #14 cap 10/16/20 [Macrobid] Allergies Allergy/AdvReac Type Severity Reaction Status Date / Time NSAIDS (Non-Steroidal AdvReac Rash/Hives/ Verified 10/16/20 18:39 Anti-Inflamma Lethargic/D emanuel Review of Systems ROS Statement: Those systems with pertinent positive or pertinent negative responses have been documented in the HPI. ROS Other: All systems not noted in ROS Statement are negative. Past Medical History Past Medical History: Deep Vein Thrombosis (DVT), Fibromyalgia, Hypertension, Osteoarthritis (OA), Pulmonary Embolus (PE) Additional Past Medical History / Comment(s): Chronic back problems with herniated disc, migraines. Bradycardia History of Any Multi-Drug Resistant Organisms: None Reported Past Surgical History: Appendectomy, Bariatric Surgery, Section, Cholecystectomy, Orthopedic Surgery, Tubal Ligation Additional Past Surgical History / Comment(s): x1, arthroscopic knee sx (3x to RIGHT knee, 2x to LEFT) gastric bypass 01-18-19 panniculectomy 07-31-20 Past Anesthesia/Blood Transfusion Reactions: No Reported Reaction Additional Past Anesthesia/Blood Transfusion Reaction / Comment(s): No blood t ransfusion to date Past Psychological History: No Psychological Hx Reported Smoking Status: Former smoker Past Alcohol Use History: None Reported Past Drug Use History: Marijuana - Past Family History Father Family Medical History: Diabetes Mellitus, Myocardial Infarction ([place]) Additional Family Medical History / Comment(s): Grandmother and grandfather had diabetes. Grandfather had prostate cancer. Mother Family Medical History: No Reported History General Exam Limitations: no limitations General appearance: alert, in no apparent distress Head exam: Present: atraumatic, normocephalic, normal inspection Eye exam: Present: normal appearance, PERRL, EOMI. Absent: scleral icterus, conjunctival injection, periorbital swelling Neck exam: Present: normal inspection. Absent: tenderness, meningismus, lymphadenopathy Respiratory exam: Present: normal lung sounds bilaterally. Absent: respiratory distress, wheezes, rales, rhonchi, stridor Cardiovascular Exam: Present: regular rate, normal rhythm, normal heart sounds. Absent: systolic murmur, diastolic murmur, rubs, gallop, clicks GI/Abdominal exam: Present: soft, tenderness (Generalized to palpation), normal bowel sounds. Absent: distended, guarding, rebound, rigid Extremities exam: Present: normal inspection, full ROM, normal capillary refill. Absent: tenderness, pedal edema, joint swelling, calf tenderness Neurological exam: Present: alert, oriented X3, CN II-XII intact Psychiatric exam: Present: normal affect, normal mood Skin exam: Present: warm, dry, intact, normal color. Absent: rash Course Vital Signs 10/16/20 16:10 Temperature 97.8 F Pulse Rate 57 L Respiratory 16 Rate Blood Pressure 117/81 O2 Sat by Pulse 99 Oximetry Medical Decision Making - Medical Decision Making 45-year-old female complaining of generalized abdominal pain with nausea and vomiting for the last week and a half. Labs, 1 L normal saline, 4 mg morphine, 4 mg Zofran, 50 g Benadryl, CT of the abdomen and pelvis ordered. Labs unremarkable. CT negative for any acute process. Urinalysis shows urinary tract infection. Case discussed with Dr. Conley, patient can discharge home with follow-up with Dr. Alonzo as scheduled. - Lab Data Result diagrams: 10/16/20 17:19 10/16/20 17:19 Lab Results 10/16/20 10/16/20 10/16/20 Range/Units 17:19 17:19 17:19 WBC 6.9 (3.8-10.6) k/uL RBC 4.99 (3.80-5.40) m/uL Hgb 14.6 (11.4-16.0) gm/dL Hct 42.2 (34.0-46.0) % MCV 84.5 (80.0-100.0) fL MCH 29.1 (25.0-35.0) pg MCHC 34.5 (31.0-37.0) g/dL RDW 13.1 (11.5-15.5) % Plt Count 291 (150-450) k/uL MPV 6.5 Neutrophils % 53 % Lymphocytes % 40 % Monocytes % 4 % Eosinophils % 1 % Basophils % 0 % Neutrophils # 3.7 (1.3-7.7) k/uL Lymphocytes # 2.8 (1.0-4.8) k/uL Monocytes # 0.3 (0-1.0) k/uL Eosinophils # 0.1 (0-0.7) k/uL Basophils # 0.0 (0-0.2) k/uL Sodium 140 (137-145) mmol/L Potassium 4.5 (3.5-5.1) mmol/L Chloride 104 (98-107) mmol/L Carbon Dioxide 28 (22-30) mmol/L Anion Gap 8 mmol/L BUN 11 (7-17) mg/dL Creatinine 0.68 (0.52-1.04) mg/dL Est GFR (CKD-EPI)AfAm >90 (>60 ml/min/1.73 sqM) Est GFR (CKD-EPI)NonAf >90 (>60 ml/min/1.73 sqM) Glucose 92 (74-99) mg/dL Calcium 9.6 (8.4-10.2) mg/dL Total Bilirubin 0.8 (0.2-1.3) mg/dL AST 34 (14-36) U/L ALT 22 (4-34) U/L Alkaline Phosphatase 105 (38-126) U/L Total Protein 7.5 (6.3-8.2) g/dL Albumin 4.5 (3.5-5.0) g/dL Amylase 35 (30-110) U/L Lipase 141 (23-300) U/L Urine Color Light Yellow Urine Appearance Cloudy H (Clear) Urine pH 6.5 (5.0-8.0) Ur Specific [place] 1.021 (1.001-1.035) Urine Protein Negative (Negative) Urine Glucose (UA) Negative (Negative) Urine Ketones Negative (Negative) Urine Blood Small H (Negative) Urine Nitrite Positive H (Negative) Urine Bilirubin Negative (Negative) Urine Urobilinogen <2.0 (<2.0) mg/dL Ur Leukocyte Esterase Large H (Negative) Urine RBC 1 (0-5) /hpf Urine WBC 11 H (0-5) /hpf Ur Squamous Epith Cells 5 H (0-4) /hpf Urine Bacteria Moderate H (None) /hpf - Radiology Data Radiology results: report reviewed, image reviewed CT of the abdomen and pelvis: No acute abnormality. Disposition Clinical Impression: Abdominal pain, Nausea & vomiting, Urinary tract infection Disposition: HOME SELF-CARE Condition: Stable Instructions (If sedation given, give patient instructions): Abdominal Pain (ED) Additional Instructions: Please return to the Emergency Department if symptoms worsen or any other concerns. Follow-up with Dr. Wu as scheduled. Increase oral fluids, give bowel rest by eating simple diet. Continue to take at home medications as prescribed. Is patient prescribed a controlled substance at d/c from ED?: No Referrals: Lillian Vazquez MD [Primary Care Provider] - 1-2 days Time of Disposition: 19:44
[2020-10-16 17:33] LABS: Basophils % (A) 0 %; Eosinophils # (A) 0.1 k/uL (0-0.7); Eosinophils % (A) 1 %; HCT 42.2 % (34.0-46.0); HGB 14.6 gm/dL (11.4-16.0); Lymphocytes # (A) 2.8 k/uL (1.0-4.8); Lymphocytes % (A) 40 %; MCH 29.1 pg (25.0-35.0); MCHC 34.5 g/dL (31.0-37.0); MCV 84.5 fL (80.0-100.0); Mean Platelet Volume 6.5; Monocytes # (A) 0.3 k/uL (0-1.0); Monocytes % (A) 4 %; Neutrophils # (A) 3.7 k/uL (1.3-7.7); Neutrophils % (A) 53 %; Platelet Count 291 k/uL (150-450); RBC 4.99 m/uL (3.80-5.40); RDW 13.1 % (11.5-15.5); WBC 6.9 k/uL (3.8-10.6)
[2020-10-16 17:45] LABS: ALT 22 U/L (4-34); AST 34 U/L (14-36); African American GFR (CKD) >90 (>60 ml/min/1.73 sqM); Albumin 4.5 g/dL (3.5-5.0); Alkaline Phosphatase 105 U/L (38-126); Amylase 35 U/L (30-110); Anion Gap 8 mmol/L; Blood Urea Nitrogen 11 mg/dL (7-17); Calcium 9.6 mg/dL (8.4-10.2); Carbon Dioxide 28 mmol/L (22-30); Chloride 104 mmol/L (98-107); Glucose 92 mg/dL (74-99); Lipase 141 U/L (23-300); Non-African American GFR(CKD) >90 (>60 ml/min/1.73 sqM); Potassium 4.5 mmol/L (3.5-5.1); Sodium 140 mmol/L (137-145); Total Bilirubin 0.8 mg/dL (0.2-1.3); Total Protein 7.5 g/dL (6.3-8.2)
[2020-10-16 18:55] LABS: Appearance,Urine Cloudy (Clear); Bacteria,Urine Moderate /hpf; Bilirubin,Urine Negative (Negative); Blood,Urine Small (Negative); Color,Urine Light Yellow; Glucose,Urine (UA) Negative (Negative); Ketones,Urine Negative (Negative); Leukocyte Esterase,Urine Large (Negative); Nitrite,Urine Positive (Negative); PH, Urine 6.5 (5.0-8.0); Protein,Urine Negative (Negative); RBC,Urine 1 /hpf (0-5); Specific Gravity,Urine 1.021 (1.001-1.035); Squamous Epithelial Cell,Urine 5 /hpf (0-4); Urobilinogen,Urine <2.0 mg/dL (<2.0); WBC,Urine 11 /hpf (0-5)
--- NOTE | 2020-10-16 19:39 | CT ---
EXAMINATION TYPE: CT abdomen pelvis w con DATE OF EXAM: 10/16/2020 COMPARISON: 09/22/2018. HISTORY: Generalized abdominal pain with decreased appetite x [address] DLP: 695.7 mGycm Automated exposure control for dose reduction was used. TECHNIQUE: Helical acquisition of images was performed from the lung bases through the pelvis. CONTRAST: Performed without Oral Contrast and with IV Contrast, patient injected with 100 mL of Isovue 300. FINDINGS: LUNG BASES: No significant abnormality is appreciated. LIVER/GB: No significant abnormality is appreciated. PANCREAS: No significant abnormality is seen. SPLEEN: No acute abnormality is seen. Scattered multiple small benign splenic calcifications, in keep ing with prior granulomatous disease. ADRENALS: No significant abnormality is seen. KIDNEYS: No bilateral renal pelvic ectasia without significant hydronephrosis or nephrolithiasis. 5 m m simple appearing right renal upper pole cyst seen. FREE AIR: No free air is visualized. RETROPERITONEAL ADENOPATHY: None visualized REPRODUCTIVE ORGANS: No significant abnormality is seen URINARY BLADDER: No significant abnormality is seen. PELVIC ADENOPATHY: None visualized. OSSEOUS STRUCTURES: No significant abnormality is seen. BOWEL: No acute abnormality is seen. Gastric bypass seen. OTHER: None IMPRESSION: NO ACUTE ABNORMALITY. INCIDENTAL FINDINGS ABOVE.
[2020-10-16] MEDS ORDERED: cefTRIAXone IN SWFI 1,000 MG/10 ML SYRINGE IVP STA (19:52)
[2020-10-16 20:35] VITALS: BP 100/65; PULSE 81; RESP 18; TEMP 98.3
== END 2020-10-16 20:34 | disposition home or self-care (01) ==
LOC: EC 16:02
DX: N39.0 Urinary tract infection, site not specified (principal); R11.2 Nausea with vomiting, unspecified; I10 Essential (primary) hypertension; M19.90 Unspecified osteoarthritis, unspecified site; M79.7 Fibromyalgia; Z86.711 Personal history of pulmonary embolism; Z86.718 Personal history of other venous thrombosis and embolism; Z87.891 Personal history of nicotine dependence; Z90.49 Acquired absence of other specified parts of digestive tract; Z98.84 Bariatric surgery status; Z88.6 Allergy status to analgesic agent; Z82.49 Family history of ischemic heart disease and other diseases of the circulatory system; Z83.3 Family history of diabetes mellitus
CPT/HCPCS: 99284; 96374; 96375; 96361; 36415; 80053; 82150; 83690; 85025; 81001; 87086; 87077; 87186; 74177; J2270; J1200; J2405; J0696; Q9967

== ENCOUNTER 2021-01-22 08:58 | Emergency (ER) | payer OTHER ==
[2021-01-22 09:13] VITALS: RESP 18
[2021-01-22] MEDS ORDERED: MORPHINE SULFATE 4 MG/ML SYRINGE IVP STA (10:12)
[2021-01-22] MEDS ORDERED: DIAZEPAM 5 MG/ML 2 ML INJ IVP STA (10:12)
[2021-01-22] MEDS ORDERED: ONDANSETRON 4 MG/2 ML VIAL IVP STA (10:12)
--- NOTE | 2021-01-22 10:41 | ED ---
Back Pain HPI - General Chief Complaint: Back Pain/Injury Stated Complaint: low back pain Time Seen by Provider: 01/22/21 09:32 Source: patient Limitations: no limitations - History of Present Illness Initial Comments: Patient is a 45-year-old female presenting to the emergency Department with complaints of lower back pain for the past 2 days. Patient denies any falls or trauma states that she woke up 2 days ago with pain. She describes it as bilaterally in lower back with some mild radiation into her glutes. She does have history of back pain with herniated disc but feels like it's usually higher than this. She does follow with pain management, does take [place]'s, she states that has not been helping with the pain. She denies any bowel or bladder incontinence, no saddle paresthesias, numbness and tingling down her lower legs. She is able to ambulate. Pain medicine this morning. She denies any fevers or chills, no neck pain, no chest pain or shortness of breath, no abdominal pain or dysuria. She has no further complaints. Her vitals are stable upon arrival. - Related Data Home Medications Medication Instructions Recorded Confirmed HYDROcodone/APAP 10-325MG [[place] 1 tab PO TID PRN 01/22/21 01/22/21 10-325] Previous Rx's Medication Instructions Recorded Cyclobenzaprine [Flexeril] 5 mg PO TID PRN #15 tablet 01/22/21 Allergies Allergy/AdvReac Type Severity Reaction Status Date / Time NSAIDS (Non-Steroidal AdvReac Rash/Hives/ Verified 01/22/21 10:55 Anti-Inflamma Lethargic/D emanuel Review of Systems ROS Statement: Those systems with pertinent positive or pertinent negative responses have been documented in the HPI. ROS Other: All systems not noted in ROS Statement are negative. Past Medical History Past Medical History: Deep Vein Thrombosis (DVT), Fibromyalgia, Hypertension, Osteoarthritis (OA), Pulmonary Embolus (PE) Additional Past Medical History / Comment(s): Chronic back problems with herniated disc, migraines. Bradycardia History of Any Multi-Drug Resistant Organisms: None Reported Past Surgical History: Appendectomy, Bariatric Surgery, Section, Cholecystectomy, Orthopedic Surgery, Tubal Ligation Additional Past Surgical History / Comment(s): x1, arthroscopic knee sx (3x to RIGHT knee, 2x to LEFT) gastric bypass 8-5-19 panniculectomy 07-31-20 Past Anesthesia/Blood Transfusion Reactions: No Reported Reaction Additional Past Anesthesia/Blood Transfusion Reaction / Comment(s): No blood transfusion to date Past Psychological History: No Psychological Hx Reported Smoking Status: Former smoker Past Alcohol Use History: None Reported Past Drug Use History: Marijuana - Past Family History Father Family Medical History: Diabetes Mellitus, Myocardial Infarction ([place]) Additional Family Medical History / Comment(s): Grandmother and grandfather had diabetes. Grandfather had prostate cancer. Mother Family Medical History: No Reported History General Exam - General Exam Comments Initial Comments: GENERAL: Patient is well-developed and well-nourished. Patient is nontoxic and in moderate distress. HEAD: Atraumatic, normocephalic. EYES: Pupils equal round and reactive to light, extraocular movements intact, sclera anicteric, conjunctiva are normal. Eyelids were unremarkable. ENT: TMs normal, nares patent, oropharynx clear without exudates. Moist mucous membranes. NECK: Normal range of motion, supple without lymphadenopathy or JVD. LUNGS: Unlabored respirations. Breath sounds clear to auscultation bilaterally and equal. No wheezes rales or rhonchi. HEART: Regular rate and rhythm without murmurs, rubs or gallops. ABDOMEN: Soft, nontender, normoactive bowel sounds. No guarding, no rebound. No masses appreciated. : Deferred MUSCULOSKELETAL: Normal extremities with adequate strength and normal range of motion, no pitting or edema. No clubbing or cyanosis. Pain with palpation of the lower lumbar spine midline and extends outward bilaterally and the paraspinals. Increased pain with trunk extension and flexion. NEUROLOGICAL: Patient is alert and oriented x 3. Motor and sensory are also intact. Cranial nerves II through XII grossly intact. Symmetrical smile. Normal speech, normal gait. PSYCH: Normal mood, normal affect. SKIN: Warm, Dry, normal turgor, no rashes or lesions noted. Limitations: no limitations Course Vital Signs 01/22/21 01/22/21 09:11 11:56 Temperature 97.7 F 98.4 F Pulse Rate 57 L 60 Respiratory 18 18 Rate Blood Pressure 139/90 98/56 O2 Sat by Pulse 100 97 Oximetry Medical Decision Making - Medical Decision Making Patient is a 45-year-old female here with bilateral lumbar pain for the past 2-3 days. She has a history of chronic back pain, takes [place]'s. Did not take any pain medicine this morning. No falls or trauma. No saddle paresthesia, bowel or bladder incontinence, no acute neural findings on exam. Lumbar x-rays reveal no acute findings. Patient was given pain medicine as well as a muscle relaxer, reports improvement in her symptoms. Discussed with her is most likely muscle spasm recommended continuing with early prescribed pain medicines as well as a trial of muscle relaxer. Recommended heat to the area and gentle massage as well. She is agreeable to this and is stable for discharge. She'll follow-up with her pain management physician for further management. Case discussed with Dr. Aleman. Disposition Clinical Impression: Lumbar back pain, Lumbar paraspinal muscle spasm Disposition: HOME SELF-CARE Condition: Stable Instructions (If sedation given, give patient instructions): Acute Low Back Pain (ED) Additional Instructions: Please return to the Emergency Department if symptoms worsen or any other concerns. Use heat to the low back, trial of muscle relaxers for spasms. Please follow-up with your pain management physician. Prescriptions: Cyclobenzaprine [Flexeril] 5 mg PO TID PRN #15 tablet PRN Reason: Muscle Spasm Is patient prescribed a controlled substance at d/c from ED?: No Referrals: Lillian Vazquez MD [Primary Care Provider] - 1-2 days Time of Disposition: 11:42
--- NOTE | 2021-01-22 10:56 | XR ---
EXAMINATION TYPE: XR lumbar spine 2 or 3V DATE OF EXAM: 01/22/2021 COMPARISON: 06/07/2016 HISTORY: Back pain TECHNIQUE: 3 view lumbar spine FINDINGS: There are 5 lumbar-type vertebral bodies. Pedicles are intact. Disc heights are preserved. Vertebral body heights are preserved. IMPRESSION: 1. Normal three-view lumbar spine
[2021-01-22 11:57] VITALS: BP 98/56; PULSE 60; TEMP 98.4
== END 2021-01-22 11:56 | disposition home or self-care (01) ==
LOC: EC 08:58
DX: M54.5 Low back pain (principal); M62.830 Muscle spasm of back; I10 Essential (primary) hypertension; M19.90 Unspecified osteoarthritis, unspecified site; Z90.49 Acquired absence of other specified parts of digestive tract; Z98.51 Tubal ligation status; Z98.84 Bariatric surgery status; Z86.718 Personal history of other venous thrombosis and embolism; Z86.711 Personal history of pulmonary embolism; Z87.891 Personal history of nicotine dependence; F12.90 Cannabis use, unspecified, uncomplicated; Z88.6 Allergy status to analgesic agent
CPT/HCPCS: 99283; 96374; 96375 ×2; 72100; J2270; J3360; J2405

== ENCOUNTER 2021-01-23 22:20 | Emergency (ER) | payer OTHER ==
[2021-01-23 22:31] VITALS: RESP 18
[2021-01-23] MEDS ORDERED: SODIUM CHLORIDE 0.9% 1,000 ML IV STA (22:48)
[2021-01-23] MEDS ORDERED: HYDROmorphone 0.5 MG/0.5 ML SYRINGE IVP STA (22:48)
[2021-01-23] MEDS ORDERED: SODIUM CHLORIDE 0.9% 500 ML 500 ML IV STA (22:48)
[2021-01-23] MEDS ORDERED: ONDANSETRON 4 MG/2 ML VIAL IVP STA (22:48)
[2021-01-23 23:36] LABS: Basophils % (A) 0 %; Eosinophils # (A) 0.2 k/uL (0-0.7); Eosinophils % (A) 2 %; HCT 42.6 % (34.0-46.0); HGB 14.6 gm/dL (11.4-16.0); Lymphocytes # (A) 2.2 k/uL (1.0-4.8); Lymphocytes % (A) 29 %; MCH 30.4 pg (25.0-35.0); MCHC 34.3 g/dL (31.0-37.0); MCV 88.6 fL (80.0-100.0); Mean Platelet Volume 7.1; Monocytes # (A) 0.5 k/uL (0-1.0); Monocytes % (A) 6 %; Neutrophils # (A) 4.7 k/uL (1.3-7.7); Neutrophils % (A) 60 %; Platelet Count 257 k/uL (150-450); RDW 13.9 % (11.5-15.5); WBC 7.8 k/uL (3.8-10.6)
--- NOTE | 2021-01-23 23:42 | ED ---
Abdominal Pain HPI - General Chief Complaint: Abdominal Pain Stated Complaint: Back/Abd Pain Time Seen by Provider: 01/23/21 22:35 Source: patient Mode of arrival: ambulatory Limitations: no limitations - History of Present Illness Initial Comments: 45-year-old female presents to the emergency room with a chief complaint of back and abdominal pain. Patient reports she was evaluated in the emergency department 3 days ago for back pain. States it started around then the lower back region and she was given symptomatically relief. Discharged with a muscle relaxer but that did not improve her symptoms. Patient states now the pain is rating across to the side and then into the periumbilical epigastric region of the abdomen. Patient is a bariatric patient of Dr. Wu. States she called the surgeon who advised to come from the department due to her radiation into the abdomen. Patient reports nausea but no vomiting. Does report decreased intake due to the nausea. It has any constipation or diarrhea. States she still able to pass gas. Does report feeling bloated. Denies any fevers or chills. Denies any chest pain or shortness of breath. Denies any vaginal or urinary symptoms. She denies any similar seizure, urinary retention with overflow or bowel incontinence. - Related Data Home Medications Medication Instructions Recorded Confirmed HYDROcodone/APAP 10-325MG [[place] 1 tab PO TID PRN 01/22/21 01/23/21 10-325] Previous Rx's Medication Instructions Recorded Cyclobenzaprine [Flexeril] 5 mg PO TID PRN #15 tablet 01/22/21 Ondansetron Odt [Zofran Odt] 4 mg PO Q8HR PRN #20 tab 01/24/21 Allergies Allergy/AdvReac Type Severity Reaction Status Date / Time NSAIDS (Non-Steroidal AdvReac Rash/Hives/ Verified 01/22/21 10:55 Anti-Inflamma Lethargic/D emanuel Review of Systems ROS Statement: Those systems with pertinent positive or pertinent negative responses have been documented in the HPI. ROS Other: All systems not noted in ROS Statement are negative. Past Medical History Past Medical History: Deep Vein Thrombosis (DVT), Fibromyalgia, Hypertension, Osteoarthritis (OA), Pulmonary Embolus ([place]) Additional Past Medical History / Comment(s): Chronic back problems with herniated disc, migraines. Bradycardia History of Any Multi-Drug Resistant Organisms: None Reported Past Surgical History: Appendectomy, Bariatric Surgery, Section, Cholecystectomy, Orthopedic Surgery, Tubal Ligation Additional Past Surgical History / Comment(s): x1, arthroscopic knee sx (3x to RIGHT knee, 2x to LEFT) gastric bypass 01-18-19 panniculectomy 07-31-20 Past Anesthesia/Blood Transfusion Reactions: No Reported Reaction Additional Past Anesthesia/Blood Transfusion Reaction / Comment(s): No blood transfusion to date Past Psychological History: No Psychological Hx Reported Smoking Status: Former smoker Past Alcohol Use History: None Reported Past Drug Use History: Marijuana - Past Family History Father Family Medical History: Diabetes Mellitus, Myocardial Infarction ([place]) Additional Family Medical History / Comment(s): Grandmother and grandfather had diabetes. Grandfather had prostate cancer. Mother Family Medical History: No Reported History General Exam Limitations: no limitations General appearance: alert, in no apparent distress Head exam: Present: atraumatic, normocephalic, normal inspection Eye exam: Present: normal appearance Pupils: Present: normal accommodation ENT exam: Present: normal exam, normal oropharynx, mucous membranes moist Neck exam: Present: normal inspection, full ROM. Absent: tenderness Respiratory exam: Present: normal lung sounds bilaterally. Absent: respiratory distress, wheezes, rhonchi, stridor Cardiovascular Exam: Present: regular rate, normal rhythm, normal heart sounds. Absent: systolic murmur, diastolic murmur GI/Abdominal exam: Present: soft, tenderness (Epigastric left upper quadrant tenderness). Absent: distended, guarding, rebound, rigid Extremities exam: Present: normal inspection, full ROM, normal capillary refill. Absent: tenderness Back exam: Present: normal inspection, full ROM, tenderness, paraspinal tenderness (Diffuse lower abdominal tenderness), vertebral tenderness Neurological exam: Present: alert, oriented X3 Psychiatric exam: Present: normal affect, normal mood Skin exam: Present: warm, dry, intact, normal color Course Vital Signs 01/23/21 01/23/21 01/24/21 22:29 23:35 01:00 Temperature 98.2 F Pulse Rate 72 59 L 68 Respiratory 18 18 18 Rate Blood Pressure 120/83 98/65 98/66 O2 Sat by Pulse 99 98 97 Oximetry Medical Decision Making - Medical Decision Making 45-year-old female presents to the emergency room with a chief complaint of back and abdominal pain. On physical examination, left upper quadrant and epigastric tenderness. Lower lumbar tenderness as well. Patient is otherwise well- appearing. Patient was given IV fluids, analgesia and antiemetics. On reevaluation, she reports improvement of symptoms. Laboratory work reveals transaminitis. She does not have a gallbladder. CT of the pelvis shows free fluid of unknown significance. No other acute findings. I advised the patient to follow-up with Dr. Delacruz. We will discharge her with Zofran and Tylenol 3 starter pack. Case discussed with - Lab Data Result diagrams: 01/23/21 23:08 01/23/21 23:08 Lab Results 01/23/21 01/23/21 Range/Units 23:08 23:08 WBC 7.8 (3.8-10.6) k/uL RBC 4.80 (3.80-5.40) m/uL Hgb 14.6 (11.4-16.0) gm/dL Hct 42.6 (34.0-46.0) % MCV 88.6 (80.0-100.0) fL MCH 30.4 (25.0-35.0) pg MCHC 34.3 (31.0-37.0) g/dL RDW 13.9 (11.5-15.5) % Plt Count 257 (150-450) k/uL MPV 7.1 Neutrophils % 60 % Lymphocytes % 29 % Monocytes % 6 % Eosinophils % 2 % Basophils % 0 % Neutrophils # 4.7 (1.3-7.7) k/uL Lymphocytes # 2.2 (1.0-4.8) k/uL Monocytes # 0.5 (0-1.0) k/uL Eosinophils # 0.2 (0-0.7) k/uL Basophils # 0.0 (0-0.2) k/uL Sodium 137 (137-145) mmol/L Potassium 4.5 (3.5-5.1) mmol/L Chloride 102 (98-107) mmol/L Carbon Dioxide 27 (22-30) mmol/L Anion Gap 8 mmol/L BUN 13 (7-17) mg/dL Creatinine 0.69 (0.52-1.04) mg/dL Est GFR (CKD-EPI)AfAm >90 (>60 ml/min/1.73 sqM) Est GFR (CKD-EPI)NonAf >90 (>60 ml/min/1.73 sqM) Glucose 104 H (74-99) mg/dL Calcium 9.1 (8.4-10.2) mg/dL Total Bilirubin 1.2 (0.2-1.3) mg/dL AST 171 H (14-36) U/L ALT 270 H (4-34) U/L Alkaline Phosphatase 240 H (38-126) U/L Total Protein 7.1 (6.3-8.2) g/dL Albumin 4.2 (3.5-5.0) g/dL Lipase 141 (23-300) U/L Disposition Clinical Impression: Abdominal pain Disposition: HOME SELF-CARE Condition: Stable Instructions (If sedation given, give patient instructions): Abdominal Pain (ED) Additional Instructions: Please return to the Emergency Department if symptoms worsen or any other concerns. Prescriptions: Ondansetron Odt [Zofran Odt] 4 mg PO Q8HR PRN #20 tab PRN Reason: Nausea Is patient prescribed a controlled substance at d/c from ED?: No Referrals: Lillian Vazquez MD [Primary Care Provider] - 1-2 days Time of Disposition: 01:36
[2021-01-23 23:53] LABS: ALT 270 U/L (4-34); AST 171 U/L (14-36); African American GFR (CKD) >90 (>60 ml/min/1.73 sqM); Albumin 4.2 g/dL (3.5-5.0); Alkaline Phosphatase 240 U/L (38-126); Anion Gap 8 mmol/L; Blood Urea Nitrogen 13 mg/dL (7-17); Calcium 9.1 mg/dL (8.4-10.2); Carbon Dioxide 27 mmol/L (22-30); Chloride 102 mmol/L (98-107); Glucose 104 mg/dL (74-99); Lipase 141 U/L (23-300); Non-African American GFR(CKD) >90 (>60 ml/min/1.73 sqM); Potassium 4.5 mmol/L (3.5-5.1); Sodium 137 mmol/L (137-145); Total Bilirubin 1.2 mg/dL (0.2-1.3); Total Protein 7.1 g/dL (6.3-8.2)
[2021-01-24] MEDS ORDERED: HYDROmorphone 1 MG/ML 1 ML SYRINGE IVP STA (00:59)
--- NOTE | 2021-01-24 01:00 | CT ---
EXAMINATION TYPE: CT abdomen pelvis w con DATE OF EXAM: 01/23/2021 COMPARISON: 10/16/2020 HISTORY: Abd. pain CT DLP: 748.4 mGycm Automated exposure control for dose reduction was used. CONTRAST: Performed with IV Contrast, patient injected with 100 mL of Isovue 300. Lung bases are clear. There is no pleural effusion. Heart size is normal. There is no pericardial eff usion. Liver spleen appear intact. There is gastric surgery. There is no pancreatic mass. Gallbladder is abs ent. The bile ducts are not dilated. There is no adrenal mass. There are small calcified splenic granulomata. Kidneys show satisfactory co ntrast opacification. There is no hydronephrosis. There is some mild deformity of the left kidney wit h nonrotation. There is no evidence of a renal mass. Delayed images show normal renal excretion. Ther e is no retroperitoneal adenopathy. Bladder distends smoothly. There is no inguinal hernia. Uterus is anteverted. There is tiny amount of low-density free fluid in the pelvis on the right side. There is some mild fat stranding over the anterior lower abdomen consistent with previous surgery. There is no mesenteric edema. There is no ascites or free air. There is no sign of a bowel obstructio n. There is some retained fecal material in the right colon. Appendix is not seen. There is no sign o f thickened appendix. The lumbar vertebra have normal alignment. Disc spaces are fairly normal. There is no compression fra cture. The bony pelvis is intact. Hip joints are intact. IMPRESSION: Tiny amount of free fluid of uncertain significance. This appears new compared to old exam. Previous gastric surgery.
[2021-01-24] MEDS ORDERED: ACET/COD 300 MG/30 MG STARTER PACK 6 TAB BTL PO STA (01:35)
[2021-01-24] MEDS ORDERED: ONDANSETRON 4 MG ODT STARTER PACK 2 TAB BTL PO STA (01:35)
[2021-01-24 01:54] VITALS: BP 95/57; PULSE 65; TEMP 98.3
== END 2021-01-24 01:45 | disposition home or self-care (01) ==
LOC: EC 22:20
DX: R10.12 Left upper quadrant pain (principal); R10.13 Epigastric pain; M54.5 Low back pain; I10 Essential (primary) hypertension; M19.90 Unspecified osteoarthritis, unspecified site; M79.7 Fibromyalgia; F12.90 Cannabis use, unspecified, uncomplicated; Z79.899 Other long term (current) drug therapy; Z86.711 Personal history of pulmonary embolism; Z86.718 Personal history of other venous thrombosis and embolism; Z88.6 Allergy status to analgesic agent; Z87.891 Personal history of nicotine dependence; Z82.49 Family history of ischemic heart disease and other diseases of the circulatory system; Z83.3 Family history of diabetes mellitus
CPT/HCPCS: 80053; 83690; 85025; 74177; 99284; 96374; 96375; 96376; 96361; J2405; J1170 ×2; S0119; Q9967

== ENCOUNTER 2021-02-24 21:49 | Emergency (ER) | payer OTHER ==
[2021-02-24 22:07] VITALS: TEMP 97.9
[2021-02-24] MEDS ORDERED: HYDROmorphone 1 MG/ML 1 ML SYRINGE IM STA (22:33)
[2021-02-24] MEDS ORDERED: diphenhydrAMINE 50 MG CAP PO STA (22:33)
[2021-02-24] MEDS ORDERED: ACETAMINOPHEN TAB 500 MG TAB PO STA (22:33)
--- NOTE | 2021-02-24 22:34 | ED ---
Back Pain HPI - General Chief Complaint: Back Pain/Injury Stated Complaint: back pain, numbness in both legs Time Seen by Provider: 02/24/21 22:16 Source: patient, RN notes reviewed, old records reviewed Limitations: no limitations - History of Present Illness Initial Comments: This is a 45-year-old female to the emergency department today. Patient Dese for evaluation of back pain acute on chronic back pain with no neurological findings or deficits. Patient has mild nausea no vomiting no recent travel history or sick contacts. Patient does have again history of back pain and degenerative disc disease a close down both legs. No loss of bowels or bladder, no other complaints MD Complaint: back pain -: month(s) Similar Symptoms Previously: Yes Place: home Radiation: none Severity: moderate Severity scale (1-10): 6 Quality: sharp Consistency: intermittent Improves With: none Worsens With: movement, walking Context: while lifting, turning/twisting Associated Symptoms: denies other symptoms Treatments Prior to Arrival: other (none) - Related Data Home Medications Medication Instructions Recorded Confirmed HYDROcodone/APAP 10-325MG [[place] 1 tab PO TID PRN 01/22/21 01/23/21 10-325] Previous Rx's Medication Instructions Recorded Cyclobenzaprine [Flexeril] 5 mg PO TID PRN #15 tablet 01/22/21 Ondansetron Odt [Zofran Odt] 4 mg PO Q8HR PRN #20 tab 01/24/21 Allergies Allergy/AdvReac Type Severity Reaction Status Date / Time NSAIDS (Non-Steroidal AdvReac Rash/Hives/ Verified 02/24/21 22:07 Anti-Inflamma Lethargic/D emanuel Review of Systems ROS Statement: Those systems with pertinent positive or pertinent negative responses have been documented in the HPI. ROS Other: All systems not noted in ROS Statement are negative. Past Medical History Past Medical History: Deep Vein Thrombosis (DVT), Fibromyalgia, Hypertension, Osteoarthritis (OA), Pulmonary Embolus (PE) Additional Past Medical History / Comment(s): Chronic back problems with herniated disc, migraines. Bradycardia History of Any Multi-Drug Resistant Organisms: None Reported Past Surgical History: Appendectomy, Bariatric Surgery, Section, Cholecystectomy, Orthopedic Surgery, Tubal Ligation Additional Past Surgical History / Comment(s): x1, arthroscopic knee sx (3x to RIGHT knee, 2x to LEFT) gastric bypass 01-18-19 panniculectomy 07-31-20 Past Anesthesia/Blood Transfusion Reactions: No Reported Reaction Additional Past Anesthesia/Blood Transfusion Reaction / Comment(s): No blood transfusion to date Past Psychological History: No Psychological Hx Reported Smoking Status: Former smoker Past Alcohol Use History: None Reported Past Drug Use History: Marijuana - Past Family History Father Family Medical History: Diabetes Mellitus, Myocardial Infarction ([place]) Additional Family Medical History / Comment(s): Grandmother and grandfather had diabetes. Grandfather had prostate cancer. Mother Family Medical History: No Reported History General Exam Limitations: no limitations General appearance: alert, in no apparent distress Head exam: Present: atraumatic, normocephalic, normal inspection Eye exam: Present: normal appearance, PERRL, EOMI. Absent: scleral icterus, conjunctival injection, periorbital swelling ENT exam: Present: normal exam, mucous membranes moist Neck exam: Present: normal inspection. Absent: tenderness, meningismus, lymphadenopathy Respiratory exam: Present: normal lung sounds bilaterally. Absent: respiratory distress, wheezes, rales, rhonchi, stridor Cardiovascular Exam: Present: regular rate, normal rhythm, normal heart sounds. Absent: systolic murmur, diastolic murmur, rubs, gallop, clicks GI/Abdominal exam: Present: soft, normal bowel sounds. Absent: distended, tenderness, guarding, rebound, rigid Extremities exam: Present: normal inspection, full ROM, normal capillary refill. Absent: tenderness, pedal edema, joint swelling, calf tenderness Back exam: Present: normal inspection Neurological exam: Present: alert, oriented X3, CN II-XII intact Psychiatric exam: Present: normal affect, normal mood Skin exam: Present: warm, dry, intact, normal color. Absent: rash Course Vital Signs 02/24/21 02/24/21 22:05 23:33 Temperature 97.9 F Pulse Rate 75 84 Respiratory 20 16 Rate Blood Pressure 140/106 132/76 O2 Sat by Pulse 99 99 Oximetry - Reevaluation(s) Reevaluation #1: Medical record is reviewed Patient symptoms are improved here in the emergency department Patient is informed of results and questions are answered Patient no significant distress Medical Decision Making - Medical Decision Making 45 female D to the emergency department EL with back pain back pain is controlled here in the emergency room. Patient can be discharged home Disposition Clinical Impression: Mechanical back pain, Strain of lumbar region, Sciatica Disposition: HOME SELF-CARE Condition: Good Instructions (If sedation given, give patient instructions): Acute Low Back Pain (ED) Is patient prescribed a controlled substance at d/c from ED?: No Referrals: Lillian Vazquez MD [Primary Care Provider] - 1-2 days
[2021-02-24] MEDS ORDERED: traMADol 50 MG STARTER PACK 3 TAB BTL PO STA (23:21)
[2021-02-24 23:34] VITALS: BP 132/76; PULSE 84; RESP 16
== END 2021-02-24 23:35 | disposition home or self-care (01) ==
LOC: EC 21:49
DX: S39.012A Strain of muscle, fascia and tendon of lower back, initial encounter (principal); M54.40 Lumbago with sciatica, unspecified side; I10 Essential (primary) hypertension; M19.90 Unspecified osteoarthritis, unspecified site; M79.7 Fibromyalgia; Z79.899 Other long term (current) drug therapy; Z86.711 Personal history of pulmonary embolism; Z86.718 Personal history of other venous thrombosis and embolism; Z83.3 Family history of diabetes mellitus; Z82.49 Family history of ischemic heart disease and other diseases of the circulatory system; Z87.891 Personal history of nicotine dependence; Z88.6 Allergy status to analgesic agent; Z98.84 Bariatric surgery status; Z90.49 Acquired absence of other specified parts of digestive tract; X50.0XXA Overexertion from strenuous movement or load, initial encounter
CPT/HCPCS: 96372; 99283; J1170

== ENCOUNTER → 2021-10-25 | Outpatient (CLI) | payer OTHER ==
[2021-10-25 14:21] LABS: HGB 13.4 g/dL (12.0-15.0); MCHC 32.7 g/dL (32.0-37.0); MCV 88.7 fL (80.0-97.0); NRBC Per 100 WBC 0 /100 WBCS (0.0-0.0); Platelet Count 172 X 10*3/uL (140-440); RBC 4.62 X 10*6/uL (4.10-5.20); RDW 12.7 % (11.5-14.5); WBC 4.29 X 10*3/uL (4.50-10.00)
[2021-10-25 16:35] LABS: LDL Cholesterol,Calculated 91.5 mg/dL (0.0-131.0); Prealbumin 15.3 mg/dL (18.0-42.0); VLDL Calculation 17.18 mg/dL (5.00-40.00)
[2021-10-25 16:45] LABS: % Iron Saturation 21.28 (12.00-45.00); ALT 12 U/L (8-44); AST 19 U/L (13-35); African American GFR (CKD) 107.8 (60.0-200.0); Albumin 4.4 g/dL (3.8-4.9); Albumin/Globulin Ratio 1.67 (1.60-3.17); Alkaline Phosphatase 118 U/L (41-126); BUN/Creat Ratio 10.59 Ratio (12.00-20.00); Blood Urea Nitrogen 8.2 mg/dL (9.0-27.0); Calcium 9.5 mg/dL (8.7-10.3); Carbon Dioxide 26.7 mmol/L (20.0-27.5); Chloride 103 mmol/L (96-109); Ferritin 80.9 ng/mL (10.0-291.0); Globulin 2.6 g/dL (1.6-3.3); Glucose 85 mg/dL (70-110); Iron 83 ug/dL (50-170); Magnesium 2.1 mg/dL (1.5-2.4); Potassium 4.3 mmol/L (3.5-5.5); Sodium 142 mmol/L (135-145); Total Iron Binding Capacity 392 ug/dL (228-460)
[2021-10-26 12:40] LABS: Zinc, Serum 86 ug/dL (60-130)
[2021-10-29 09:20] LABS: Vitamin A 28 ug/dL (38-106)
[2021-10-29 09:53] LABS: Vit B1(Thiamine) 63 ug/L (38-122)
== END | disposition home or self-care (01) ==
LOC: LABWHC1 08:56
PROVIDERS: ATTEND Surgery Plastic and Reconstructive Surgery
DX: E66.01 Morbid (severe) obesity due to excess calories (principal); E89.1 Postprocedural hypoinsulinemia; D50.8 Other iron deficiency anemias; E44.0 Moderate protein-calorie malnutrition; E44.1 Mild protein-calorie malnutrition; E45 Retarded development following protein-calorie malnutrition; E55.9 Vitamin D deficiency, unspecified; K74.1 Hepatic sclerosis; N19 Unspecified kidney failure; T56.894A Toxic effect of other metals, undetermined, initial encounter; K50.90 Crohn's disease, unspecified, without complications
CPT/HCPCS: 36415; 80053; 80061; 82306; 82525; 82607; 82728; 82746; 83036; 83540; 83550; 83735; 83970; 84100; 84134; 84255; 84425; 84443; 84590; 84630; 85027

== ENCOUNTER → 2021-11-27 | Outpatient (CLI) | payer OTHER ==
--- NOTE | 2021-11-27 11:03 | CT ---
EXAMINATION TYPE: CT abdomen pelvis w con DATE OF EXAM: 11/27/2021 COMPARISON: CT dated 01/23/2021 HISTORY: Left lower quadrant abdominal pain and nausea x6 months. CT DLP: 686.6 mGycm Automated exposure control for dose reduction was used. TECHNIQUE: Helical acquisition of images was performed from the lung bases through the pelvis. CONTRAST: Performed with Oral Contrast and with IV Contrast, patient injected with 100ml mL of Isovue 300. FINDINGS: LUNG BASES: No significant abnormality is appreciated. LIVER/GB: No definite hepatic focal lesion. Previous cholecystectomy. PANCREAS: No significant abnormality is seen. SPLEEN: Scattered tiny splenic calcifications likely related to previous granulomatous infection. ADRENALS: No significant abnormality is seen. KIDNEYS: Few bilateral renal hypodensities likely representing renal cysts. Duplex left kidney, other dias unremarkable kidneys. FREE AIR: No free air is visualized. RETROPERITONEAL ADENOPATHY: None visualized REPRODUCTIVE ORGANS: No gross uterine or adnexal mass. URINARY BLADDER: Nondistended. PELVIC ADENOPATHY: No pathologically enlarged pelvic lymph nodes. OSSEOUS STRUCTURES: Bilateral L4-L5 and L5-S1 facet osteoarthropathy. Degenerative changes of the lo wer thoracic spine. No aggressive bone lesion. BOWEL: Previous gastric surgery. Gastrojejunostomy. No evidence of bowel obstruction. Mild diffuse w all thickening of the colon, nonspecific. OTHER: Unremarkable abdominal aorta. No sizable ascites. IMPRESSION: Mild diffuse wall thickening of the colon, nonspecific. Mild acute or chronic colitis cannot be exclu ded. Otherwise no definite acute abnormality seen in the abdomen or the pelvis. Incidental findings a s described above.
== END | disposition home or self-care (01) ==
LOC: RADCTMAIN 08:40
PROVIDERS: ATTEND Surgery Plastic and Reconstructive Surgery
DX: K63.89 Other specified diseases of intestine (principal)
CPT/HCPCS: 74177; Q9967 ×2

== ENCOUNTER 2021-12-19 09:46 | Day surgery (SDC) | payer OTHER ==
[2021-12-14 10:57] VITALS: BMI 26.9
--- NOTE | 2021-12-19 06:06 | P.GSHP ---
History of Present Illness H&P Date: 12/19/21 CHIEF COMPLAINT: Colitis HISTORY OF PRESENT ILLNESS: The patient is a 46-year-old female who presents for colitis. Lower endoscopy was offered for further evaluation and management. PAST MEDICAL HISTORY: Please see list. PAST SURGICAL HISTORY: Please see list. MEDICATIONS: Please see list. ALLERGIES: Please see list. SOCIAL HISTORY: No illicit drug use FAMILY HISTORY: No reports of Crohn disease or ulcerative colitis. REVIEW OF ORGAN SYSTEMS: CONSTITUTIONAL: No reports of fevers or chills. PHYSICAL EXAM: VITAL SIGNS: Stable GENERAL: Well-developed pleasant in no acute distress. HEENT: No scleral icterus. Extraocular movements grossly intact. Moist buccal mucosa. NECK: Supple without lymphadenopathy. CHEST: Unlabored respirations. Equal bilateral excursions. CARDIOVASCULAR: Regular rate and rhythm. Distal 2+ pulses. ABDOMEN: Soft, nontender, nondistended. MUSCULOSKELETAL: No clubbing, cyanosis, or edema. ASSESSMENT: 1. Colitis PLAN: 1. Recommend proceeding with a lower endoscopy Past Medical History Past Medical History: Deep Vein Thrombosis (DVT), Fibromyalgia, Hypertension, Osteoarthritis (OA), Pulmonary Embolus (PE) Additional Past Medical History / Comment(s): Chronic back problems with herniated disc, migraines. Bradycardia , CONSTANT N/V/D, PAIN TO LT LOWER ABD. AREA History of Any Multi-Drug Resistant Organisms: None Reported Past Surgical History: Appendectomy, Bariatric Surgery, Section, Cholecystectomy, Orthopedic Surgery, Tubal Ligation Additional Past Surgical History / Comment(s): x1, arthroscopic knee sx (3x to RIGHT knee, 2x to LEFT) gastric bypass 01-18-19 panniculectomy 07-31-20, EGD, COLONOSCOPY Past Anesthesia/Blood Transfusion Reactions: No Reported Reaction Additional Past Anesthesia/Blood Transfusion Reaction / Comment(s): No blood transfusion to date Smoking Status: Former smoker - Past Family History Father Family Medical History: Diabetes Mellitus, Myocardial Infarction ([place]) Additional Family Medical History / Comment(s): Grandmother and grandfather had diabetes. Grandfather had prostate cancer. Mother Family Medical History: No Reported History Medications and Allergies Home Medications Medication Instructions Recorded Confirmed Type HYDROcodone/APAP 10-325MG [[place] 1 tab PO TID PRN 01/22/21 12/14/21 History 10-325] Allergies Allergy/AdvReac Type Severity Reaction Status Date / Time NSAIDS (Non-Steroidal AdvReac Rash/Hives/ Verified 12/14/21 10:49 Anti-Inflamma Lethargic/Dulce castellanos
[~2021-12-19 09:46] MED LIST changes: -ACETAMINOPHEN TAB 500 MG TAB PO STA; -DEXAMETHASONE SOD PHOSPHATE 4 MG/ML 1 ML VIAL IV ONE; -GABAPENTIN 300 MG CAP PO STA; +LACTATED RINGERS 1,000 ML IV SCH; -MIDAZOLAM 2 MG/2 ML VIAL IV PRN; -ONDANSETRON 4 MG/2 ML VIAL IVP ONE; -SCOPOLAMINE 1.5MG/72HR PATCH TRANSDERM ONE; -SCOPOLAMINE 1.5MG/72HR PATCH TRANSDERM STA
[2021-12-19 09:59] VITALS: TEMP 97.3
[2021-12-19] MEDS ORDERED: PROPOFOL 10 MG/ML 20 ML VIAL IV ONE (10:10)
[2021-12-19 10:44] VITALS: RESP 16
--- NOTE | 2021-12-19 10:52 | P.PCN ---
Date of Procedure: 12/19/21 Description of Procedure: PREOPERATIVE DIAGNOSIS: Abnormal computed tomography scan for colitis Gastrointestinal bleeding POSTOPERATIVE DIAGNOSIS: Tubular adenoma ascending colon Tubular adenoma transverse colon Tubular adenoma descending colon Scattered diverticulosis, sigmoid colon OPERATION: Colonoscopy to the ileocecal valve and appendiceal orifice, cecum Colonoscopy with hot snare polypectomy Colonoscopy with cold forceps biopsy for random biopsies for colitis SURGEON: Kareen Delacruz MD. ANESTHESIA: MAC. INDICATIONS: The patient is an 46-year-old female who presents with abdominal pain, rectal bleeding, abnormal computed tomography scan for colitis. Benefits and risks were described and informed consent was obtained. DESCRIPTION OF PROCEDURE: The patient had undergone Sutab prep. The patient had been brought into the operating room and laid in the left lateral decubitus position. After adequate intravenous sedation, the rectum was examined with 2% lidocaine jelly. No external hemorrhoids were encountered. The rectal tone was within normal limits. No lesions were palpated in the rectal vault. An Olympus colonoscope was advanced until the cecum, ileocecal valve and appendiceal orifice were clearly viewed. The prep was good. Few scattered diverticulosis was encountered. Colonic polyps were found and removed. Random biopsies were obtained for microscopic colitis. Retroflexion of the scope demonstrated grade 2 internal hemorrhoids without active bleeding or inflammation. The colon was desufflated. The patient had tolerated the procedure well. Withdrawal time was over 6 minutes. FINDINGS: Aronchick preparation quality scale 2 (1-5) Internal hemorrhoids, grade 2 No external hemorrhoids No arteriovenous malformations. Sigmoid diverticulosis Random biopsies for microscopic colitis Removal of 4 polyps: - Snare polypectomy proximal transverse colon, 8 mm tubulovillous adenoma polyp. - Snare polypectomy of distal transverse colon, 6 mm flat villous adenoma polyp. - Snare polypectomy of ascending colon, 4 mm flat villous adenoma polyp. - Cold forceps biopsy at 40 cm from the anal verge, 5 mm polyp, descending colon No focal colitis. RECOMMENDATIONS: Given severity of tubular adenomas, recommend repeat colonoscopy 1 year, 2022 Plan - Discharge Summary Discharge Rx Participant: No New Discharge Prescriptions: Continue HYDROcodone/APAP 10-325MG [[place] 10-325] 1 tab PO TID PRN PRN Reason: Pain Discharge Medication List HYDROcodone/APAP 10-325MG [[place] 10-325] 1 tab PO TID PRN 01/22/21 [History] Follow up Appointment(s)/Referral(s): Kareen Delacruz MD [STAFF PHYSICIAN] - 01/01/22 Patient Instructions/Handouts: Colorectal Polyps (GEN), Microscopic Colitis (DC) Activity/Diet/Wound Care/Special Instructions: Repeat colonoscopy in one year, 2022 Discharge Disposition: HOME SELF-CARE
[2021-12-19 10:57] VITALS: BP 113/62; PULSE 58
== END 2021-12-19 11:39 | disposition home or self-care (01) ==
LOC: ORWHC2ENDO 09:46
PROVIDERS: ATTEND Surgery Plastic and Reconstructive Surgery
DX: D12.2 Benign neoplasm of ascending colon (principal); D12.4 Benign neoplasm of descending colon; D12.3 Benign neoplasm of transverse colon; K57.30 Diverticulosis of large intestine without perforation or abscess without bleeding; K64.1 Second degree hemorrhoids; I10 Essential (primary) hypertension; Z86.718 Personal history of other venous thrombosis and embolism; M79.7 Fibromyalgia; M19.90 Unspecified osteoarthritis, unspecified site; Z86.711 Personal history of pulmonary embolism; Z90.49 Acquired absence of other specified parts of digestive tract; Z98.84 Bariatric surgery status; Z87.891 Personal history of nicotine dependence; Z83.3 Family history of diabetes mellitus; Z82.49 Family history of ischemic heart disease and other diseases of the circulatory system; Z80.42 Family history of malignant neoplasm of prostate; Z88.6 Allergy status to analgesic agent; Z91.041 Radiographic dye allergy status; Z88.0 Allergy status to penicillin; Z91.09 Other allergy status, other than to drugs and biological substances; Z88.2 Allergy status to sulfonamides; Z88.5 Allergy status to narcotic agent; Z88.3 Allergy status to other anti-infective agents; Z88.1 Allergy status to other antibiotic agents
CPT/HCPCS: 88305; 45380; 45385; J2704

== ENCOUNTER → 2022-01-15 | Outpatient (CLI) | payer OTHER ==
[2022-01-15 18:10] LABS: HCT 40.7 % (37.2-46.3); HGB 13.1 g/dL (12.0-15.0); MCH 28.5 pg (27.0-32.0); MCHC 32.2 g/dL (32.0-37.0); MCV 88.5 fL (80.0-97.0); Mean Platelet Volume 10.2 fL (9.5-12.2); NRBC Per 100 WBC 0 /100 WBCS (0.0-0.0); Platelet Count 271 X 10*3/uL (140-440); WBC 5.84 X 10*3/uL (4.50-10.00)
== END | disposition home or self-care (01) ==
LOC: LABPAT 13:21
PROVIDERS: ATTEND Surgery Plastic and Reconstructive Surgery
DX: Z01.812 Encounter for preprocedural laboratory examination (principal); M19.90 Unspecified osteoarthritis, unspecified site
CPT/HCPCS: 85027

== ENCOUNTER 2022-01-17 11:44 | Day surgery (SDC) | payer OTHER ==
[2022-01-15 10:22] VITALS: BMI 26.3
--- NOTE | 2022-01-17 09:58 | P.GSHP ---
History of Present Illness H&P Date: 01/17/22 CHIEF COMPLAINT: History of intra-abdominal adhesions HISTORY OF PRESENT ILLNESS: The patient is a 46-year-old female who presents with history of intra-abdominal adhesions from multiple prior surgeries including increasing abdominal pain. She now presents for diagnostic laparoscopy including lysis of adhesions. PAST MEDICAL HISTORY: Please see list. PAST SURGICAL HISTORY: Please see list. MEDICATIONS: Please see list. ALLERGIES: Please see list. SOCIAL HISTORY: No illicit drug use FAMILY HISTORY: No reports of Crohn disease or ulcerative colitis. REVIEW OF ORGAN SYSTEMS: CONSTITUTIONAL: No reports of fevers or chills. GI: Denies any blood in stools or constipation. PHYSICAL EXAM: VITAL SIGNS: Stable GENERAL: Well-developed pleasant and in no acute distress. HEENT: No scleral icterus. Extraocular movements grossly intact. Moist buccal mucosa. NECK: Supple without lymphadenopathy. CHEST: Unlabored respirations. Equal bilateral excursions. CARDIOVASCULAR: Regular rate and rhythm. Distal 2+ pulses. ABDOMEN: Soft, diffuse abdominal tenderness. No peritonitis. MUSCULOSKELETAL: No clubbing, cyanosis, or edema. ASSESSMENT: 1. Diffuse abdominal pain. 2. History of multiple abdominal surgeries. 3. Intra-abdominal adhesions. PLAN: 1. Robotic lysis of adhesions were described in detail including risk of injury to the intestine, need for further surgery, and open technique. 2. DVT prophylaxis. 3. Antibiotic prophylaxis. Past Medical History Past Medical History: Deep Vein Thrombosis (DVT), Fibromyalgia, Hypertension, Osteoarthritis (OA), Pulmonary Embolus (PE) Additional Past Medical History / Comment(s): Chronic back problems with herniated disc, migraines. Bradycardia , CONSTANT N/V/D, PAIN TO LT LOWER ABD. AREA. DVT/PE RT LEG AND LUNGS 12 YEARS AGO WHILE 8 MONTHS History of Any Multi-Drug Resistant Organisms: None Reported Past Surgical History: Appendectomy, Bariatric Surgery, Section, Cholecystectomy, Orthopedic Surgery, Tubal Ligation Additional Past Surgical History / Comment(s): x1, arthroscopic knee sx (3x to RIGHT knee, 2x to LEFT) gastric bypass 01-18-19 panniculectomy 07-31-20, EGD, COLONOSCOPY Past Anesthesia/Blood Transfusion Reactions: No Reported Reaction Additional Past Anesthesia/Blood Transfusion Reaction / Comment(s): No blood transfusion to date Smoking Status: Former smoker - Past Family History Father Family Medical History: Diabetes Mellitus, Myocardial Infarction ([place]) Additional Family Medical History / Comment(s): Grandmother and grandfather had diabetes. Grandfather had prostate cancer. Mother Family Medical History: No Reported History Medications and Allergies Home Medications Medication Instructions Recorded Confirmed Type HYDROcodone/APAP 10-325MG [[place] 1 tab PO TID PRN 01/22/21 01/15/22 History 10-325] Allergies Allergy/AdvReac Type Severity Reaction Status Date / Time NSAIDS (Non-Steroidal AdvReac Rash/Hives/ Verified 01/15/22 10:13 Anti-Inflamma Lethargic/D emanuel
[~2022-01-17 11:44] MED LIST changes: +ACETAMINOPHEN TAB 500 MG TAB PO PRN; +DEXAMETHASONE SOD PHOSPHATE 4 MG/ML 1 ML VIAL IV ONE; +GABAPENTIN 300 MG CAP PO PRN; +HEPARIN SODIUM,PORCINE/PF 5,000 UNIT/0.5 ML SYRINGE SQ PRN; +HYDROmorphone 0.5 MG/0.5 ML SYRINGE IVP PRN; +ONDANSETRON 4 MG/2 ML VIAL IVP ONE; +SCOPOLAMINE 1 MG/72 HR PATCH TRANSDERM PRN
[2022-01-17 12:35] VITALS: TEMP 97.5
[2022-01-17 12:58] LABS: Glucose,Whole Blood 81 mg/dL (70-110)
[2022-01-17] MEDS ORDERED: MIDAZOLAM 2 MG/2 ML VIAL IVP ONE (13:08)
[2022-01-17] MEDS ORDERED: BUPIVACAIN-EPI 0.25%-1:200,000 30 ML VIAL SQ ONE (13:16)
[2022-01-17] MEDS ORDERED: SUGAMMADEX SODIUM 200 MG/2 ML SDV IV ONE (13:41)
[2022-01-17] MEDS ORDERED: MIDAZOLAM 2 MG/2 ML VIAL ONE (13:41)
[2022-01-17] MEDS ORDERED: NEOSTIGMINE 1 MG/ML 10 ML VIAL ONE (13:41)
[2022-01-17] MEDS ORDERED: fentaNYL (PF) 50 MCG/ML 2 ML AMP ONE (13:41)
[2022-01-17] MEDS ORDERED: ROCURONIUM 10 MG/ML (5 ML VIAL) IV ONE (13:41)
[2022-01-17] MEDS ORDERED: SODIUM CHLORIDE 0.9% (PF) 10 ML VIAL ONE (13:41)
[2022-01-17] MEDS ORDERED: DEXAMETHASONE SOD PHOSPHATE 10 MG/ML 1 ML VIAL ONE (13:41)
[2022-01-17] MEDS ORDERED: GLYCOPYRROLATE 0.2 MG/ML 2 ML VIAL ONE (13:41)
[2022-01-17] MEDS ORDERED: SUCCINYLCHOLINE CHLORIDE 200 MG/10 ML VIAL IV ONE (13:41)
[2022-01-17] MEDS ORDERED: PROPOFOL 10 MG/ML 20 ML VIAL IV ONE (13:41)
[2022-01-17] MEDS ORDERED: ROPIVACAINE 5 MG/ML 30 ML VIAL ONE (13:41)
[2022-01-17] MEDS ORDERED: LACTATED RINGERS 1,000 ML IV ONE (15:08)
--- NOTE | 2022-01-17 16:09 | P.OP ---
Date of Procedure: 01/17/22 Description of Procedure: SURGEON: KAREN LUCAS MD PREOPERATIVE DIAGNOSES: 1. Left lower abdominal pain 2. Left lower quadrant abdominal pain 3. History of peritoneal adhesions 4. History of gastric bypass POSTOPERATIVE DIAGNOSES: 1. Left lower abdominal pain 2. Left lower quadrant abdominal pain 3. History of peritoneal adhesions 4. History of gastric bypass 5. Peritoneal adhesions, interloop, left lower quadrant/left upper quadrant 6. Omental adhesions OPERATION: 1. Robotic-assisted da Leonel Xi laparoscopic with extensive lysis of adhesions over 1 hr ESTIMATED BLOOD LOSS: 5 mL. SPECIMENS REMOVED: None. COMPLICATIONS: None. OPERATIVE FINDINGS: 1. No ventral hernias identified. 2. Complete scarring of Talley defect 3. Abnormal adhesions of biliopancreatic limb jejunostomy to katherine limb divided 4. Normal terminal ileum and cecum unremarkable. INDICATIONS: The patient is a 46-year-old female who presents with left upper and left lower quadrant abdominal pain. Surgical intervention with diagnostic laparoscopy, lysis of adhesions were described. Informed consent was obtained. Robotic assisted laparoscopic approach was described. Benefits and risks of the procedure including but not limited to bleeding, infection, injury to the small bowel was described. Informed consent was obtained. DESCRIPTION OF PROCEDURE: In the preoperative area, patient's abdomen was marked at locations of pain including of the left lower quadrant and lateral abdominal wall. Patient was brought to the operating room, placed in supine position. After general induction, the abdomen had been prepped and draped in standard sterile fashion. The robotic da Leonel XI system was primed. After a timeout protocol was performed, the patient had been prepped and draped in standard sterile fashion. The robot was docked along the right lateral abdomen. The patient was repositioned in with right side up. Please note prior to docking of the robot; however, a 5 mm 0 degrees laparoscopic trocar entry was performed along the left upper quadrant. The abdomen was insufflated to 15 mmHg pressure which was tolerated well. Diagnostic laparoscopy was performed. Next, three 8 mm robotic ports were placed along the right lateral abdominal wall. The camera 8-mm port was maintained along mid-lateral abdomen. Please note that the ports were placed at least 10 to 15 cm away from the target anatomy. Instruments including graspers and vessel sealer were interchanged by the assistant housekeeping manager. I had sat at the console. No evidence of incisional hernia was identified. The small bowel was investigated from the terminal ileum to the ligament of Treitz. At the terminal ileum, abnormal right pelvic adhesions were identified and lysed using vessel sealer. Next at the jejunojejunostomy, omental adhesions were identified over the anastomosis causing intermittent torsion. The abnormal adhesions were lysed using vessel sealer. An adhesion acquiring the right dome of the uterus was already detached. The Katherine limb was measured to the gastrojejunostomy over 80 cm in length. The Talley's defect was already closed from scar tissue. At the jejunojejunostomy mesentery, abnormal adhesions of omentum to the staple line of the jejunostomy were identified and sharply lysed using vessel sealer. The biliopancreatic limb was approximately 60 cm in length. The jejunojejunostomy mesenteric defect was oversewn using 2-0 V LOC, green. An anti-prolapse suture was placed to prevent mechanical obstruction at the jejunojejunostomy. Next at the left lower quadrant, abnormal adhesions of the sigmoid colon adherent to the right fallopian tube and right ovary were sharply lysed without injury to the ovary or fallopian tube and colon. Extensive lysis of adhesions over 1 hr was performed. The small bowel was viable.The robot was undocked. All pneumoperitoneum instruments were evacuated from the abdominal cavity. The incisions were reapproximated using 4-0 Monocryl in an interrupted subcuticular fashion. Please note along the trocar sites, local anesthetic was placed as a field block prior to insertion of all instruments. Exofin was applied to the skin. At the end of the procedure needle, sponge, and instrument count had been verified correct by the neurosurgical nurse practitioner. The patient was transferred to postanesthesia care unit in stable condition. Intraoperative findings including images were shown and given to the patient's family. Plan - Discharge Summary Discharge Rx Participant: No New Discharge Prescriptions: New Acetaminophen Tab [Tylenol Tab] 1,000 mg PO Q6HR PRN #30 tablet PRN Reason: Pain Simethicone [Gas-X] 125 mg PO AC-TID PRN #20 capsule PRN Reason: Pain Continue HYDROcodone/APAP 10-325MG [[place] 10-325] 1 tab PO TID PRN PRN Reason: Pain Discharge Medication List HYDROcodone/APAP 10-325MG [[place] 10-325] 1 tab PO TID PRN 01/22/21 [History] Acetaminophen Tab [Tylenol Tab] 1,000 mg PO Q6HR PRN #30 tablet 01/17/22 [Rx] Simethicone [Gas-X] 125 mg PO AC-TID PRN #20 capsule 01/17/22 [Rx] Follow up [facility]ment(s[facility] [facility] [place] [place] [facility] [place] Patient Instructions/Handouts: Lysis of Abdominal Adhesions (DC), *[facility]gery [facility] - Managing Your Pain After Surgery Without Opioids Activity/Diet/Wound Care/Special Instructions: Using antibacterial soap. No lifting over 10 pounds 2 weeks, May shower. No bathtub soaks for 2 weeks, Use ice along incisions for today to prevent swelling. Take tylenol and simethicone scheduled for 3 days for best pain relief Discharge Disposition: HOME SELF-CARE
[2022-01-17 17:03] VITALS: RESP 18
[2022-01-17] MEDS ORDERED: ONDANSETRON 4 MG/2 ML VIAL ONE (17:07)
[2022-01-17] MEDS ORDERED: HYDROcodone/APAP 10-325MG 1 EACH TAB ONE (17:07)
[2022-01-17] MEDS ORDERED: HYDROcodone/APAP 10-325MG 1 EACH TAB PO ONE ×2 (17:10→17:11)
[2022-01-17 17:49] VITALS: BP 117/67; PULSE 55
--- NOTE | 2022-01-17 18:41 | P.ANPRN ---
Procedure Note - Anesthesia - Nerve Block Performed Bilateral Erector Spinae Single Time Out Performed: Yes Date of Procedure: 01/17/22 Procedure Start Time: 13:07 Procedure Stop Time: 13:14 Location of Patient: PreOp Indication: Acute Post-Operative Pain, Requested by Surgeon Sedation Type: Sedate with meaningful contact maintained Preparation: Sterile Prep Position: Prone Needle Types: Pajunk Needle Gauge: 21 Ultrasound used to visualize needle placement: Yes Ultrasound used to observe medication spread: Yes Blood Aspirated: No Pain Paresthesia on Injection Noted: No Resistance on Injection: Normal Image Stored and Saved: Yes Events: Uneventful and Well Tolerated (Ropivacaine 0.5% 15 mL plus normal saline 10 mL plus dexamethasone 4 mg doing bilaterally at L1)
== END 2022-01-17 18:25 | disposition home or self-care (01) ==
LOC: OR 11:44
PROVIDERS: ATTEND Surgery Plastic and Reconstructive Surgery
DX: K66.0 Peritoneal adhesions (postprocedural) (postinfection) (principal); R10.32 Left lower quadrant pain; Z98.84 Bariatric surgery status; G89.18 Other acute postprocedural pain; Z88.6 Allergy status to analgesic agent; Z90.49 Acquired absence of other specified parts of digestive tract; Z87.891 Personal history of nicotine dependence; Z83.3 Family history of diabetes mellitus; Z82.49 Family history of ischemic heart disease and other diseases of the circulatory system; Z80.42 Family history of malignant neoplasm of prostate; I10 Essential (primary) hypertension; M19.90 Unspecified osteoarthritis, unspecified site; M79.7 Fibromyalgia; Z86.711 Personal history of pulmonary embolism; Z86.718 Personal history of other venous thrombosis and embolism; Z98.51 Tubal ligation status
CPT/HCPCS: 64999; 49329; J2250; J0330; J1100 ×2; J2710; J0690; J2405; J3010; J2795; J2704; J1170; J1644

== ENCOUNTER → 2022-01-23 | Outpatient (CLI) | payer OTHER ==
[2022-01-23 10:19] VITALS: BP 111/78; PULSE 67; TEMP 98; BMI 25.1
--- NOTE | 2022-01-23 11:25 | P.PN ---
Progress Note - Text Progress Note Date: 01/23/22 To whom it may concern: Estefania Lynch is under my surgical care. She may return to work without restrictions, Feb 19, 2022. Regards, Kareen Delacruz MD FACS
--- NOTE | 2022-01-23 12:39 | P.BASOAP ---
Subjective Progress Note Date: 01/23/22 Patient reports improvement of bowel habits with no longer diarrhea. Improved left lower quadrant abdominal pain. She reports intermittent left upper quadrant swelling however no pain. She is tolerating diet. Overall improvement of her abdominal pain. Family at bedside describes patient drinks high sugary beverages just slurp is contraindicated with a gastric bypass. High-protein diet described. Risks of gastric ulcers ulcer reviewed and symptoms. Patient encouraged to notify bariatric center for any further abdominal pain. Return to work in 4 weeks without lifting instructions. Objective - Vital Signs Vital signs: Vital Signs Temp 98 F 01/23/22 10:13 Pulse 67 01/23/22 10:13 Resp BP 111/78 01/23/22 10:13 Pulse Ox FiO2 Intake & Output 01/22/22 01/23/22 01/23/22 18:59 06:59 18:59 Weight 64.41 kg Assessment/Plan Plan: Date: 01/23/22 Initial Weight: 121.381 kg Initial BMI: 47.4 Current Weight: 64.41 kg Current BMI: 25.1 Type of Surgery: Total Volume in Band: Previous Volume: Volume Removed: Volume Added: Band Size:
== END | disposition home or self-care (01) ==
LOC: BARWHC3 09:55
PROVIDERS: ATTEND Surgery Plastic and Reconstructive Surgery
DX: E66.01 Morbid (severe) obesity due to excess calories (principal); Z68.25 Body mass index [BMI] 25.0-25.9, adult
CPT/HCPCS: 99211

== ENCOUNTER → 2023-01-24 | Outpatient (CLI) | payer OTHER ==
--- NOTE | 2023-01-27 07:46 | MM ---
Reason for Exam: Screening (asymptomatic). Last mammogram was performed 6 year(s) and 2 month(s) ago. Patient History: Menarche at age 15. First Full-Term at age 23. Paternal cousin had breast cancer, age 21. Risk Values: Solange 5 year model risk: 0.7%. NCI Lifetime model risk: 8.6%. Prior Study Comparison: 09/28/2013 Bilateral Diagnostic Mammogram, [facility]. 12/05/2015 Bilateral Diagnostic Mammogram, [facility]. 12/12/2016 Bilateral Diagnostic Mammogram, [facility]. Tissue Density: The breast tissue is almost entirely fat. Findings: Analyzed By CAD. There is no suspicious group of microcalcifications or new suspicious mass in either breast. Overall Assessment: Negative, BI-RAD 1 Management: Screening Mammogram of both breasts in [address] [facility] will attempt to contact patient to return for supplemental views and ultrasound if indicated. Patient should continue monthly self-breast exams. A clinical breast exam by your physician is recommended on an annual basis. This exam should not preclude additional follow-up of suspicious palpable abnormalities. Note on Solange scores and lifetime risk: 1. A Solange score greater than 3% is considered moderate risk. If this is the case, consider specialist referral to assess eligibility for a risk reducing agent. 2. If overall lifetime risk for the development of breast cancer is 20% or higher, the patient may qualify for future screening with alternating mammogram and breast MRI. Electronically signed and approved by: Sulaiman Goddard DO
== END | disposition home or self-care (01) ==
LOC: RADMAMWWP 14:35
PROVIDERS: ATTEND Family Medicine
DX: Z12.31 Encounter for screening mammogram for malignant neoplasm of breast (principal); Z80.3 Family history of malignant neoplasm of breast
CPT/HCPCS: 77067

== ENCOUNTER → 2023-02-05 | Outpatient (CLI) | payer OTHER ==
[2023-02-05 19:43] LABS: Basophils # (A) 0.01 X 10*3/uL (0.00-0.10); Basophils % (A) 0.2 %; Eosinophils # (A) 0.09 X 10*3/uL (0.04-0.35); Eosinophils % (A) 1.6 %; HCT 40.9 % (37.2-46.3); HGB 13.3 d/dL (12.0-15.0); Lymphocytes # (A) 2.05 X 10*3/uL (0.90-5.00); Lymphocytes % (A) 37.5 %; MCH 29.9 pg (27.0-32.0); MCHC 32.5 d/dL (32.0-37.0); MCV 91.9 FL (80.0-97.0); Mean Platelet Volume 9.4 FL (9.5-12.2); Monocytes # (A) 0.33 X 10*3/uL (0.20-1.00); NRBC Per 100 WBC 0 X 10*3/uL (0.00-0.01); Neutrophils # (A) 2.97 X 10*3/uL (1.80-7.70); Neutrophils % (A) 54.5 %; Platelet Count 297 X 10*3/uL (140-440); RBC 4.45 X 10*6/uL (4.10-5.20); RDW 13.5 % (11.5-14.5); WBC 5.46 X 10*3/uL (4.50-10.00)
[2023-02-05 20:08] LABS: Estradiol <20.0 pg/mL
[2023-02-05 20:19] LABS: Follicle Stimulating Hormone 71.8 mIU/mL; Progesterone 0.2 ng/mL
[2023-02-05 20:28] LABS: Testosterone <10.00 ng/dL (9.01-47.94)
== END | disposition home or self-care (01) ==
LOC: LABWHC1 14:36
PROVIDERS: ATTEND Midwife
DX: N91.2 Amenorrhea, unspecified (principal)
CPT/HCPCS: 36415; 82670; 83001; 84144; 84403; 84443; 85025; 86800

== ENCOUNTER → 2023-02-13 | Outpatient (CLI) | payer OTHER ==
--- NOTE | 2023-02-13 10:23 | BD ---
EXAMINATION TYPE: Axial Bone Density DATE OF EXAM: 02/13/2023 CLINICAL HISTORY: 47 years old Female. ICD-10 CODE: Z13.820 screening Height: 62in Weight: 131lb FRAX RISK QUESTIONS: Family History (Parent hip fracture): yes Secondary Osteoporosis: 3. Menopause before 45: 43 RISK FACTORS HISTORY OF: Family History of Osteoporosis: yes Active: yes Postmenopausal woman: yes Lost more than 2 inches in height since high school: yes MEDICATIONS: Additional Medications: [place] Additional History: none EXAM MEASUREMENTS: Bone mineral densitometry was performed using the Giphy System. Bone mineral density as measured about the Lumbar spine is: ----- L1-L4(G/cm2): 1.014 T Score Values are as follows: ----- L1: -2.2 ----- L2: -1.1 ----- L3: -1.2 ----- L4: -1.4 ----- L1-L4: -1.4 Z Score Values are as follows: ----- L1: -1.9 ----- L2: -0.8 ----- L3: -1.0 ----- L4: -1.1 ----- L1-L4: -1.1 First dexa at [facility] Bone mineral density about the R hip (g/cm2): 0.818 Bone mineral density about the L hip (g/cm2): 0.774 T Score values are as follows: -----R Neck: -1.6 -----L Neck: -1.5 -----R Total: -1.5 -----L Total: -1.9 Z Score values are as follows: -----R Neck: -0.9 -----L Neck: -0.8 -----R Total: -1.1 -----L Total: -1.4 FRAX%s: The graph provided illustrates a 6.7% chance for a major osteoporotic fx and a 0.4% chance fo r the hips probability for fx in 10 years time. IMPRESSION: Osteopenia (T Score between -2.5 and -1). There is slightly increased risk of fracture and the patient may be considered for treatment. Re-Screen 2-5 years. NOTE: T-SCORE=SD OF THE YOUNG ADULT MEAN.
== END | disposition home or self-care (01) ==
LOC: RADBDWWP 09:13
PROVIDERS: ATTEND Obstetrics & Gynecology
DX: Z13.820 Encounter for screening for osteoporosis (principal); M85.89 Other specified disorders of bone density and structure, multiple sites; Z78.0 Asymptomatic menopausal state
CPT/HCPCS: 77080

== ENCOUNTER 2023-05-22 07:53 | Day surgery (SDC) | payer OTHER ==
--- NOTE | 2023-05-22 07:47 | P.GSHP ---
History of Present Illness H&P Date: 05/22/23 CHIEF COMPLAINT: Colon screen HISTORY OF PRESENT ILLNESS: The patient is a 48-year-old female who presents for colon screen. Lower endoscopy was offered for further evaluation and management. PAST MEDICAL HISTORY: Please see list. PAST SURGICAL HISTORY: Please see list. MEDICATIONS: Please see list. ALLERGIES: Please see list. SOCIAL HISTORY: No illicit drug use FAMILY HISTORY: No reports of Crohn disease or ulcerative colitis. REVIEW OF ORGAN SYSTEMS: CONSTITUTIONAL: No reports of fevers or chills. PHYSICAL EXAM: VITAL SIGNS: Stable GENERAL: Well-developed pleasant in no acute distress. HEENT: No scleral icterus. Extraocular movements grossly intact. Moist buccal mucosa. NECK: Supple without lymphadenopathy. CHEST: Unlabored respirations. Equal bilateral excursions. CARDIOVASCULAR: Regular rate and rhythm. Distal 2+ pulses. ABDOMEN: Soft, nontender, nondistended. MUSCULOSKELETAL: No clubbing, cyanosis, or edema. ASSESSMENT: 1. Colon screen. PLAN: 1. Recommend proceeding with a lower endoscopy Past Medical History Past Medical History: Deep Vein Thrombosis (DVT), Fibromyalgia, Osteoarthritis (OA), Pulmonary Embolus (PE) Additional Past Medical History / Comment(s): Chronic back problems with herniated disc, migraines, hx of HTN with . Bradycardia 50-55. DVT/PE RT LEG AND LUNGS 12 YEARS AGO WHILE 8 MONTHS . Hx of polyps History of Any Multi-Drug Resistant Organisms: None Reported Past Surgical History: Appendectomy, Bariatric Surgery, Section, Cholecystectomy, Orthopedic Surgery, Tubal Ligation Additional Past Surgical History / Comment(s): x1, arthroscopic knee sx (3x to RIGHT knee, 2x to LEFT) gastric bypass 01-18-19 panniculectomy 07-31-20, EGD, COLONOSCOPY, lysis of adhesions Jan 2022 Past Anesthesia/Blood Transfusion Reactions: No Reported Reaction Additional Past Anesthesia/Blood Transfusion Reaction / Comment(s): No blood transfusion to date Smoking Status: Former smoker - Past Family History Father Family Medical History: Diabetes Mellitus, Myocardial Infarction (RI) Additional Family Medical History / Comment(s): Grandmother and grandfather had diabetes. Grandfather had prostate cancer. Mother Family Medical History: No Reported History Medications and Allergies Home Medications Medication Instructions Recorded Confirmed Type HYDROcodone/APAP 10-325MG [Goff 1 tab PO TID PRN 01/22/21 05/20/23 History 10-325] Ondansetron Odt [Zofran Odt] 4 mg PO Q8HR PRN #20 tab 08/12/22 05/20/23 Rx Allergies Allergy/AdvReac Type Severity Reaction Status Date / Time NSAIDS (Non-Steroidal AdvReac Rash/Hives/ Verified 05/20/23 12:27 Anti-Inflamma Lethargic/D emanuel
[~2023-05-22 07:53] MED LIST changes: -ACETAMINOPHEN TAB 500 MG TAB PO PRN; -DEXAMETHASONE SOD PHOSPHATE 4 MG/ML 1 ML VIAL IV ONE; -GABAPENTIN 300 MG CAP PO PRN; -HEPARIN SODIUM,PORCINE/PF 5,000 UNIT/0.5 ML SYRINGE SQ PRN; -HYDROmorphone 0.5 MG/0.5 ML SYRINGE IVP PRN; -ONDANSETRON 4 MG/2 ML VIAL IVP ONE; -SCOPOLAMINE 1 MG/72 HR PATCH TRANSDERM PRN
[2023-05-22 08:13] VITALS: TEMP 97.8
[2023-05-22] MEDS ORDERED: LIDOCAINE 1% INJ 10MG/ML (20 ML MDV) ONE (08:32)
[2023-05-22] MEDS ORDERED: PROPOFOL 10 MG/ML 20 ML VIAL IV ONE (08:32)
--- NOTE | 2023-05-22 08:54 | P.PCN ---
Date of Procedure: 05/22/23 Description of Procedure: PREOPERATIVE DIAGNOSIS: Personal history colon polyps Colonoscopy screening. POSTOPERATIVE DIAGNOSIS: Personal history colon polyps Colonoscopy screening. OPERATION: Colonoscopy to the cecum, ileocecal valve and appendiceal orifice. SURGEON: Kareen Delacruz MD. ANESTHESIA: MAC. INDICATIONS: The patient is a 48-year-old female who presents for colonoscopy screening. Benefits and risks were described and informed consent was obtained. DESCRIPTION OF PROCEDURE: The patient had undergone Golytely prep. The patient had been brought into the operating room and laid in the left lateral decubitus position. After adequate intravenous sedation, the rectum was examined with 2% lidocaine jelly. No external hemorrhoids were encountered. The rectal tone was within normal limits. No lesions were palpated in the rectal vault. An Olympus colonoscope was advanced until the cecum, ileocecal valve and appendiceal orifice were clearly viewed. The prep was excellent. No scattered diverticulosis was encountered. No colonic polyps were found. No evidence of focal colitis was found. Retroflexion of the scope demonstrated grade 1 internal hemorrhoids without active bleeding or inflammation. The colon was desufflated. The patient had tolerated the procedure well. Withdrawal time was over 6 minutes. FINDINGS: Aronchick preparation quality scale 1 (1-5) Internal hemorrhoids, grade 1 No diverticulosis Highly redundant splenic flexure and sigmoid colon No external prolapsed hemorrhoids. No arteriovenous malformations. No adenomatous polyps. No focal colitis. RECOMMENDATIONS: Lower endoscopy in 5 2027 Plan - Discharge Summary Discharge Rx Participant: No New Discharge Prescriptions: Continue HYDROcodone/APAP 10-325MG [Carriere 10-325] 1 tab PO TID PRN PRN Reason: Pain Ondansetron Odt [Zofran ODT] 4 mg PO Q8HR PRN #20 tab PRN Reason: Nausea Discharge Medication List HYDROcodone/APAP 10-325MG [[place]riere 10-325] 1 tab PO TID PRN 01/22/21 [History] Ondansetron Odt [Zofran ODT] 4 mg PO Q8HR PRN #20 tab 08/12/22 [Rx] Follow up Appointment(s)/Referral(s): Kareen Delacruz MD [STAFF PHYSICIAN] - As Needed Patient Instructions/Handouts: Moderate Sedation (DC) Activity/Diet/Wound Care/Special Instructions: Repeat colonoscopy 5 years, 2027 Discharge Disposition: HOME SELF-CARE
[2023-05-22 09:01] VITALS: BP 101/63
[2023-05-22 09:25] VITALS: PULSE 55; RESP 16
== END 2023-05-22 10:27 | disposition home or self-care (01) ==
LOC: ORWHC2ENDO 07:53
PROVIDERS: ATTEND Surgery Plastic and Reconstructive Surgery
DX: Z12.11 Encounter for screening for malignant neoplasm of colon (principal); K64.0 First degree hemorrhoids; I10 Essential (primary) hypertension; M19.90 Unspecified osteoarthritis, unspecified site; Z86.711 Personal history of pulmonary embolism; Z90.49 Acquired absence of other specified parts of digestive tract; Z98.890 Other specified postprocedural states; Z98.891 History of uterine scar from previous surgery; Z98.84 Bariatric surgery status; Z87.891 Personal history of nicotine dependence; Z82.49 Family history of ischemic heart disease and other diseases of the circulatory system; Z83.3 Family history of diabetes mellitus; Z88.6 Allergy status to analgesic agent; Z86.010 Personal history of colon polyps; Z79.899 Other long term (current) drug therapy
CPT/HCPCS: 45378; J2001; J2704

== ENCOUNTER → 2024-05-12 | Outpatient (CLI) | payer OTHER ==
[2024-05-12 15:59] VITALS: BP 115/76; PULSE 71; RESP 16; TEMP 98.2; BMI 27.3
--- NOTE | 2024-05-12 16:20 | P.BASOAP ---
Subjective Progress Note Date: 05/12/24 She has 14 pounds weight gain from panniculectomy. She has LLQ pain. She feels a knot. She has twisting inside the abdomen. She feels popping. US to check for seroma. CT abdomen for abdominal pain and possible internal hernia/diverticuliosis. No BMS daily. She reports watery diarrhea. She reports constipation. SHe is not able to eat. She report nausea. She reports pulling inside the tummy. She can drink frozen slurpees. Objective - Vital Signs Vital signs: Vital Signs Temp 98.2 F 05/12/24 15:49 Pulse 71 05/12/24 15:49 Resp 16 05/12/24 15:49 BP 115/76 05/12/24 15:49 Pulse Ox FiO2 Intake & Output 05/11/24 05/12/24 05/12/24 18:59 06:59 18:59 Weight 69.853 kg Assessment/Plan Plan: Date: 05/12/24 Initial Weight: 121.381 kg Initial BMI: 47.4 Current Weight: 69.853 kg Current BMI: 27.3 Type of Surgery: Total Volume in Band: Previous Volume: Volume Removed: Volume Added: Band Size:
== END ==
LOC: BARWHC3 15:16
PROVIDERS: ATTEND Surgery Plastic and Reconstructive Surgery
DX: E66.01 Morbid (severe) obesity due to excess calories (principal); Z88.6 Allergy status to analgesic agent; Z87.891 Personal history of nicotine dependence; Z68.27 Body mass index [BMI] 27.0-27.9, adult
CPT/HCPCS: 99211

== ENCOUNTER → 2024-05-19 | Outpatient (CLI) | payer OTHER ==
[2024-05-19 17:40] LABS: Partial Thromboplastin Time 24.3 sec (22.0-30.0); Prothrombin Time 10.6 sec (10.0-12.5)
[2024-05-20 03:52] LABS: HCT 40.2 % (37.2-46.3); HGB 13.3 g/dL (12.0-15.0); MCH 29.5 pg (27.0-32.0); MCHC 33.1 g/dL (32.0-37.0); MCV 89.1 FL (80.0-97.0); Mean Platelet Volume 9.4 FL (9.5-12.2); NRBC Per 100 WBC 0 X 10*3/uL (0.00-0.01); Platelet Count 266 X 10*3/uL (140-440); RBC 4.51 X 10*6/uL (4.10-5.20); RDW 12.7 % (11.5-14.5); WBC 5.97 X 10*3/uL (4.50-10.00)
[2024-05-20 04:20] LABS: Prealbumin 17.7 mg/dL (18.0-42.0)
[2024-05-20 04:48] LABS: % Iron Saturation 14.98 (12.00-45.00); ALT 26 U/L (8-44); AST 23 U/L (13-35); Albumin 4.3 g/dL (3.8-4.9); Albumin/Globulin Ratio 1.59 Ratio (1.60-3.17); Alkaline Phosphatase 132 U/L (41-126); BUN/Creat Ratio 21.86 Ratio (12.00-20.00); Blood Urea Nitrogen 15.3 mg/dL (9.0-27.0); Calcium 9.4 mg/dL (8.7-10.3); Carbon Dioxide 25.4 mmol/L (21.6-31.8); Chloride 105 mmol/L (96-109); Ferritin 21.8 ng/mL (10.0-291.0); Globulin 2.7 g/dL (1.6-3.3); Glucose 93 mg/dL (70-110); Iron 74 UG/DL (50-170); LDL Cholesterol,Calculated 85.1 mg/dL (0.0-131.0); Phosphorus 4.7 mg/dL (2.4-5.1); Potassium 4.6 mmol/L (3.5-5.5); Sodium 142 mmol/L (135-145); Total Bilirubin 0.6 mg/dL (0.3-1.2); Total Iron Binding Capacity 494 UG/DL (228-460)
[2024-05-20 12:20] LABS: Zinc, Serum 70 ug/dL (60-130)
[2024-05-21 06:01] LABS: Vitamin A 30 ug/dL (38-106)
[2024-05-21 06:26] LABS: Vit B1(Thiamine) 64 ug/L (38-122)
== END | disposition home or self-care (01) ==
LOC: LABWHC1 16:08
PROVIDERS: ATTEND Surgery Plastic and Reconstructive Surgery
DX: E66.01 Morbid (severe) obesity due to excess calories (principal); E89.1 Postprocedural hypoinsulinemia; D50.8 Other iron deficiency anemias; K91.2 Postsurgical malabsorption, not elsewhere classified; E44.0 Moderate protein-calorie malnutrition; E44.1 Mild protein-calorie malnutrition; E45 Retarded development following protein-calorie malnutrition; E55.9 Vitamin D deficiency, unspecified; K74.1 Hepatic sclerosis; N19 Unspecified kidney failure; T56.894A Toxic effect of other metals, undetermined, initial encounter; K50.90 Crohn's disease, unspecified, without complications
CPT/HCPCS: 36415; 80053; 80061; 82306; 82525; 82607; 82728; 82746; 83036; 83540; 83550; 83735; 83970; 84100; 84134; 84255; 84425; 84443; 84590; 84630; 85027; 85610; 85730

== ENCOUNTER → 2024-06-07 | Outpatient (CLI) | payer OTHER ==
--- NOTE | 2024-06-07 10:14 | US ---
EXAMINATION TYPE: US abdomen limited DATE OF EXAM: 06/07/2024 COMPARISON: CT abdomen and pelvis 08/12/2022, ultrasound guided soft tissue drainage 08/25/2020 CLINICAL INDICATION: Female, 49 years old with history of T79.2XXA SEROMA; gastric surgery 2017, yamileth culectomy 2019, for 1 year she has felt fullness near LLQ TECHNIQUE: Soft tissue scan of abdomen FINDINGS/IMPRESSION: Normal appearing soft tissue without evidence of fluid collection or mass. No d istinct hernia identified. Peristalsing bowel seen in this region. [facility], , 06/07/2024 10:12 AM
== END | disposition home or self-care (01) ==
LOC: RADUSWWP 07:26
PROVIDERS: ATTEND Surgery Plastic and Reconstructive Surgery
DX: T79.2XXA Traumatic secondary and recurrent hemorrhage and seroma, initial encounter (principal)
CPT/HCPCS: 76705

== ENCOUNTER → 2024-09-27 | Outpatient (CLI) | payer OTHER ==
--- NOTE | 2024-09-27 17:57 | CT ---
EXAMINATION TYPE: CT abdomen pelvis w con CT DLP: 673.00 mGycm, Automated exposure control for dose reduction was used. DATE OF EXAM: 09/27/2024 5:41 PM COMPARISON: CT abdomen pelvis 08/12/2022, 11/27/2021, abdominal ultrasound 06/07/2024 CLINICAL INDICATION:Female, 49 years old with history of R10.11 ABD PAIN; Abdominal pain TECHNIQUE: Standard CT of the abdomen and pelvis following the administration of 100 cc of Isovue 3 00 IV contrast material and oral contrast. Coronal and sagittal reformats were performed. FINDINGS: LOWER CHEST: Unremarkable ABDOMEN LIVER: Unremarkable GALLBLADDER AND BILE DUCTS: The gallbladder is surgically absent. No biliary ductal dilatation. PANCREAS: Unremarkable. SPLEEN: Scattered calcified granulomas. ADRENAL GLANDS: Unremarkable. KIDNEYS AND URETERS: No evidence of hydronephrosis or renal calculus. The kidneys enhance symmetrical ly. 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 Contrast is demon strated within both collecting systems on the delayed phase. Left renal cortical 0.9 cm cyst. No foll ow-up recommended. PELVIS BLADDER: Underdistended but grossly unremarkable. REPRODUCTIVE: Unremarkable. ABDOMEN & PELVIS STOMACH AND BOWEL: Postsurgical changes from Katherine-en-Y gastric bypass. Enteric contrast reaches the a scending colon.No focal bowel wall thickening or surrounding inflammatory changes. Mild colonic stool burden. No evidence of bowel obstruction. PERITONEUM: No evidence of pneumoperitoneum or free fluid. VASCULATURE: No evidence of aortic aneurysm. Few pelvic phleboliths. MUSCULOSKELETAL: No acute osseous abnormalities LYMPH NODES: No evidence for lymphadenopathy. SOFT TISSUE/ABDOMINAL WALL: Anterior abdominal wall midline subcutaneous tissue 1 cm fat-containing l esion with peripheral calcification consistent with fat necrosis. No umbilical or inguinal hernia matthew ntified. IMPRESSION: No CT evidence for acute abdominal/pelvic process. [facility], , 09/27/2024 5:54 PM
== END | disposition home or self-care (01) ==
LOC: RADCTMAIN 15:21
PROVIDERS: ATTEND Surgery Plastic and Reconstructive Surgery
DX: R10.11 Right upper quadrant pain (principal)
CPT/HCPCS: 74177; Q9967